=== PATIENT | male | born 1945 | race Caucasian/White ===

== ENCOUNTER → 2017-08-12 16:59 | Outpatient (CLI) | payer MEDICARE, SELFPAY ==
--- NOTE | 2017-08-12 17:07 | RAD_ITS ---
STUDY: X-RAY LEFT FOOT, FIFTH TOE REASON FOR EXAM: Male, 72 years old. 5 day history of pain. TECHNIQUE: 3 view(s) of the toe were obtained. COMPARISON: None. FINDINGS: Normal visualized metatarsus. Normal metatarsophalangeal (M.T.P) joint. Nondisplaced transverse fracture through the midportion of the proximal phalanx of the fifth toe. Normal phalanges and interphalangeal joints. Soft tissue swelling. RAD/Toe(s) Min 2 Views IMPRESSION: Nondisplaced transverse fracture through the midshaft of the proximal phalanx of the fifth toe with overlying soft tissue swelling. Electronically Signed: Angel Robins MD at 13:47 EST Tel [phone], Service support ,
== END ==
PROVIDERS: Family Provider Family Medicine; PCP Family Medicine; Visit Provider Family Medicine
DX: M79.676 Pain in unspecified toe(s) (principal)
CPT/HCPCS: 73660

== ENCOUNTER → 2017-11-19 12:11 | Outpatient (CLI) | payer MEDICARE, SELFPAY ==
[2017-11-19 12:56] LABS: Absolute Lymphocyte Count 1.99 X10^3/ul (0.83-4.51); Absolute Neutrophil Count 4.7 X10^3/uL (2.0-7.7); Basophil# 0.03 X10^3/uL; Basophil% 0.4 % (0-1); Eosinophil# 0.18 X10^3/uL; Eosinophils% 2.3 % (0-5); Hemoglobin 13.5 g/dl (13.0-16.5); Lymphocyte # 1.99 X10^3/ul (4.0); Mean Corp Hgb Conc 32.9 g/gl (32-36); Mean Corpuscular Hgb 28.7 pg (27.0-32.0); Mean Platelet Vol. 11.8 fl (6.2-12.0); Monocyte# 0.75 X10^3/uL; Monocyte% 9.8 % (0-10); Neutrophil % 61.4 % (47-70); Platelet Count 114 K/mm3 (150-450); RBC Distribution Width CV 13.2 % (11.6-14.6); RBC Distribution Width SD 42.3 fl (35.1-43.9); Red Blood Count 4.71 M/mm3 (4.6-6.2); White Blood Count 7.7 K/mm3 (4.4-11.0)
[2017-11-19 13:02] LABS: POSITIVE COUNT NO; POSITIVE DIFFERENTIAL NO; POSITIVE MORPHOLOGY NO
[2017-11-19 13:28] LABS: ALB/GLOB Ratio 0.8 RATIO (0.9-2.4); AST(SGOT) 25 U/L (15-37); Alanine Aminotransfer ALT/SGPT 43 U/L (16-61); Albumin, Serum 3.6 g/dL (3.2-5.0); Alkaline Phosphatase 76 U/L (45-117); Anion Gap 6 (5-15); BUN 14 mg/dL (7-18); BUN/Creat Ratio 12.1 RATIO (10-20); Calcium,Total 8.7 mg/dL (8.5-10.1); Chloride 105 mmol/L (98-107); Creatinine, Serum 1.16 mg/dL (0.70-1.30); EST Glomerular Filtration Rate 66 mL/min (>60); Est Glom Filt Rate - Afr Amer 80 mL/min (>60); Globulin 4.3 g/dL (2.2-4.2); Glucose 204 mg/dL (74-106); Potassium 4.7 mmol/L (3.5-5.1); Protein, Total 7.9 g/dL (6.4-8.2); Sodium Level 140 mmol/L (136-145); Thyroid Stim Hormone (TSH) 1.01 uIU/mL (0.358-3.74)
[2017-11-20 09:39] LABS: Vitamin B12 584 pg/mL (211-911)
[2017-11-21 03:07] LABS: Ceruloplasmin 24.1 mg/dL (16.0-31.0)
[2017-11-21 11:34] LABS: Copper, Serum or Plasma 119 ug/dL (72-166)
== END ==
PROVIDERS: Family Provider Family Medicine; PCP Family Medicine; Visit Provider Psychiatry & Neurology Neurology
DX: R25.1 Tremor, unspecified (principal)
CPT/HCPCS: 36415; 80053; 82390; 82525; 82607; 84443; 85025

== ENCOUNTER → 2018-01-07 16:03 | Outpatient (CLI) | payer MEDICARE, SELFPAY ==
--- NOTE | 2018-01-07 16:38 | MRI_ITS ---
STUDY: MRI BRAIN WITHOUT CONTRAST REASON FOR EXAM: Male, 72 years old. Worsening tremor TECHNIQUE: Standardized multiplanar fat and water weighted pulse sequences were obtained. COMPARISON: None. FINDINGS: Mild atrophy and periventricular white matter ischemic changes without mass effect or restricted diffusion.. Chronic ischemic changes within the justin. Normal bilateral basal ganglia. Normal thalami. There is no extra-axial fluid accumulation. Normal flow voids within the major intracranial circulation suggesting patency by spin echo criteria. Normal sella turcica, pituitary gland, infundibular stalk, optic chiasm and hypothalamus. Normal tectal plate and pineal gland. Normal midbrain, and medulla. Normal cerebellum. Normal basal cisterns. Normal bilateral temporal bones. Normal bilateral internal auditory canals. Postsurgical changes of the orbits. Mild mucosal thickening of the ethmoid sinuses.. Normal calvarium and skull base. Normal visualized soft tissue structures. Normal visualized upper cervical spine. MRI/Brain without Contrast IMPRESSION: Mild periventricular white matter ischemic changes without evidence for acute infarct and chronic ischemic changes within the justin.. Electronically Signed: Cam Granados MD at 18:23 EDT , Service support ,
== END ==
PROVIDERS: Family Provider Family Medicine; PCP Family Medicine; Visit Provider Psychiatry & Neurology Neurology
DX: R25.1 Tremor, unspecified (principal); R26.9 Unspecified abnormalities of gait and mobility
CPT/HCPCS: 70551

== ENCOUNTER → 2018-05-28 13:29 | Outpatient (CLI) | payer MEDICARE, SELFPAY ==
--- NOTE | 2018-05-28 12:25 | RAD_ITS ---
STUDY: X-RAY CHEST REASON FOR EXAM: Male, 73 years old. Shortness of breath TECHNIQUE: Frontal and lateral views of the chest were obtained. COMPARISON: August 17, 2016 FINDINGS: The lungs are hyperinflated. There are mild coarse opacities in the lung bases. There are no focal airspace opacities. There is no demonstrated pleural abnormality. The cardiac silhouette is normal in size. The mediastinum and hilar regions are unremarkable. Normal visualized pulmonary arteries. Normal visualized aortic arch and descending thoracic aorta. There are diffuse degenerative changes of the visualized spine. The visualized ribs, clavicles, and shoulders are unremarkable. There is no demonstrated abnormality of the visualized upper abdomen. RAD/Chest PA and Lateral IMPRESSION: No acute cardiopulmonary abnormalities. There are findings of COPD with mild chronic changes in the lung bases. Electronically Signed: Evita Suárez MD at 21:45 EST Tel Direct: [phone], Service support ,
[2018-05-28 13:56] LABS: Anion Gap 6 (5-15); BUN 14 mg/dL (7-18); BUN/Creat Ratio 11.3 RATIO (10-20); Calcium,Total 8.2 mg/dL (8.5-10.1); Chloride 104 mmol/L (98-107); Cholesterol 109 mg/dL (200); Creatinine, Serum 1.24 mg/dL (0.70-1.30); EST Glomerular Filtration Rate 61 mL/min (>60); Est Glom Filt Rate - Afr Amer 74 mL/min (>60); Glucose 360 mg/dL (74-106); High Density Lipoprotein 29 mg/dL; PSA,Total - Annual Screen 2.28 ng/mL (0.00-4.00); Potassium 5.2 mmol/L (3.5-5.1); Sodium Level 137 mmol/L (136-145); Triglycerides 67 mg/dL; Very Low Density Lipoprotein 13 mg/dL (5-40)
[2018-05-28 14:04] LABS: Absolute Lymphocyte Count 1.23 X10^3/ul (0.83-4.51); Absolute Neutrophil Count 5.9 X10^3/uL (2.0-7.7); Basophil# 0.03 X10^3/uL; Basophil% 0.4 % (0-1); Eosinophil# 0.32 X10^3/uL; Eosinophils% 3.9 % (0-5); Hematocrit 37.5 % (40-54); Hemoglobin 11.7 g/dl (13.0-16.5); Lymphocyte # 1.23 X10^3/ul (4.0); Lymphocyte % 14.9 % (19-41); Mean Corp Hgb Conc 31.2 g/gl (32-36); Mean Corpuscular Hgb 28.7 pg (27.0-32.0); Mean Corpuscular Volume 91.9 fL (80-94); Mean Platelet Vol. 12.8 fl (6.2-12.0); Monocyte# 0.74 X10^3/uL; Neutrophil % 71.4 % (47-70); Platelet Count 268 K/mm3 (150-450); RBC Distribution Width CV 13.5 % (11.6-14.6); RBC Distribution Width SD 44.7 fl (35.1-43.9); Red Blood Count 4.08 M/mm3 (4.6-6.2); White Blood Count 8.3 K/mm3 (4.4-11.0)
[2018-05-28 14:05] LABS: POSITIVE COUNT NO; POSITIVE DIFFERENTIAL NO; POSITIVE MORPHOLOGY NO
[2018-05-28 14:06] LABS: Vitamin D,25 Hydroxy 21.6 ng/mL (29.95-100.01)
[2018-05-28 14:19] LABS: Hemoglobin A1c 11.2 % (4.2-6.3)
[2018-05-28 14:31] LABS: BNP,B-Type NATRIURETIC PEPTIDE 794.7 pg/mL (0-100)
== END ==
PROVIDERS: Family Provider Family Medicine; PCP Family Medicine; Referring Provider Family Medicine; Visit Provider Family Medicine
DX: Z00.00 Encounter for general adult medical examination without abnormal findings (principal); E55.9 Vitamin D deficiency, unspecified; E11.8 Type 2 diabetes mellitus with unspecified complications; E11.65 Type 2 diabetes mellitus with hyperglycemia; R06.02 Shortness of breath; Z12.5 Encounter for screening for malignant neoplasm of prostate
CPT/HCPCS: 36415; 71046; 80048; 80061; 82306; 83036; 83880; 84153; 85025; G0103

== ENCOUNTER → 2018-06-02 08:59 | Outpatient (CLI) | payer MEDICARE, OTHER, SELFPAY ==
[2018-06-02 10:41] LABS: AST(SGOT) 27 U/L (15-37); Alanine Aminotransfer ALT/SGPT 25 U/L (16-61); Albumin, Serum 3.4 g/dL (3.2-5.0); Alkaline Phosphatase 85 U/L (45-117); Anion Gap 8 (5-15); BUN 35 mg/dL (7-18); BUN/Creat Ratio 22.7 RATIO (10-20); Bilirubin, Direct 0.13 mg/dL (0.00-0.30); Chloride 101 mmol/L (98-107); Cholesterol 121 mg/dL (200); Creatinine, Serum 1.54 mg/dL (0.70-1.30); EST Glomerular Filtration Rate 47 mL/min (>60); Est Glom Filt Rate - Afr Amer 57 mL/min (>60); Globulin 5.3 g/dL (2.2-4.2); Glucose 140 mg/dL (74-106); High Density Lipoprotein 35 mg/dL; Potassium 4.6 mmol/L (3.5-5.1); Protein, Total 8.7 g/dL (6.4-8.2); Sodium Level 137 mmol/L (136-145); Triglycerides 98 mg/dL; Very Low Density Lipoprotein 20 mg/dL (5-40)
[2018-06-02 11:20] LABS: Hemoglobin A1c 10.4 % (4.2-6.3)
[2018-06-02 15:04] LABS: Microalbumin,Random Urine 9.1 mg/L (NO RANGE EST.); Microalbumin:Creatinine Ratio 7.4 mg/g CRE (<30 mg/g CRE)
== END ==
PROVIDERS: Family Provider Family Medicine; PCP Family Medicine; Visit Provider Family Medicine
DX: E11.9 Type 2 diabetes mellitus without complications (principal)
CPT/HCPCS: 36415; 80048; 80061; 80076; 82043; 82570; 83036

== ENCOUNTER → 2018-10-29 | Outpatient (CLI) | payer MEDICARE, OTHER, SELFPAY ==
[2018-10-29 10:02] LABS: Absolute Lymphocyte Count 1.83 X10^3/ul (0.83-4.51); Absolute Neutrophil Count 5.9 X10^3/uL (2.0-7.7); Basophil# 0.05 X10^3/uL; Basophil% 0.5 % (0-1); Eosinophil# 0.49 X10^3/uL; Eosinophils% 5.3 % (0-5); Hematocrit 41.1 % (40-54); Hemoglobin 13.5 g/dl (13.0-16.5); Lymphocyte # 1.83 X10^3/ul (4.0); Lymphocyte % 19.9 % (19-41); Mean Corp Hgb Conc 32.8 g/gl (32-36); Mean Corpuscular Hgb 28.7 pg (27.0-32.0); Mean Corpuscular Volume 87.4 fL (80-94); Mean Platelet Vol. 11.9 fl (6.2-12.0); Monocyte% 9.8 % (0-10); Neutrophil # 5.89 X10^3/uL (2.7-7.7); Neutrophil % 64.2 % (47-70); Platelet Count 120 K/mm3 (150-450); RBC Distribution Width CV 13.5 % (11.6-14.6); RBC Distribution Width SD 43.3 fl (35.1-43.9); White Blood Count 9.2 K/mm3 (4.4-11.0)
[2018-10-29 10:03] LABS: POSITIVE COUNT NO; POSITIVE DIFFERENTIAL NO; POSITIVE MORPHOLOGY NO
[2018-10-29 10:22] LABS: Hemoglobin A1c 9.4 % (4.2-6.3)
[2018-10-29 10:27] LABS: Microalbumin,Random Urine 16.9 mg/L (NO RANGE EST.); Microalbumin:Creatinine Ratio 18.6 mg/g CRE (<30 mg/g CRE)
[2018-10-29 10:38] LABS: AST(SGOT) 26 U/L (15-37); Alanine Aminotransfer ALT/SGPT 27 U/L (16-61); Albumin, Serum 3.5 g/dL (3.2-5.0); Alkaline Phosphatase 85 U/L (45-117); Anion Gap 9 (5-15); BUN 14 mg/dL (7-18); BUN/Creat Ratio 12.2 RATIO (10-20); Bilirubin, Direct 0.16 mg/dL (0.00-0.30); Calcium,Total 8.8 mg/dL (8.5-10.1); Chloride 101 mmol/L (98-107); Cholesterol 155 mg/dL (200); Creatinine, Serum 1.15 mg/dL (0.70-1.30); EST Glomerular Filtration Rate 66 mL/min (>60); Est Glom Filt Rate - Afr Amer 80 mL/min (>60); Globulin 4.1 g/dL (2.2-4.2); Glucose 223 mg/dL (74-106); High Density Lipoprotein 50 mg/dL; Potassium 4.3 mmol/L (3.5-5.1); Protein, Total 7.6 g/dL (6.4-8.2); Sodium Level 138 mmol/L (136-145); Triglycerides 80 mg/dL; Very Low Density Lipoprotein 16 mg/dL (5-40)
== END | disposition home or self-care (01) ==
LOC: MFPLAB 08:30
PROVIDERS: Family Provider Family Medicine; PCP Family Medicine; Referring Provider Family Medicine; Visit Provider Family Medicine
DX: E11.8 Type 2 diabetes mellitus with unspecified complications (principal); R11.0 Nausea
CPT/HCPCS: 36415; 80048; 80061; 80076; 82043; 82570; 83036; 85025

== ENCOUNTER 2020-11-30 17:16 | Emergency (ER) | payer MEDICARE, MEDICAID, SELFPAY ==
[2020-11-29 09:58] VITALS: BMI 24.9
[2020-11-30 17:17] VITALS: BP 160/121; PULSE 70; RESP 20; TEMP 36.6; O2SAT 100; BMI 26.2
[2020-11-30 17:39] VITALS: O2SAT 100
--- NOTE | 2020-11-30 17:39 | EKG12_ITS ---
Test Reason : CP Blood Pressure : / mmHG Vent. Rate : 067 BPM Atrial Rate : 067 BPM P-R Int : 202 ms QRS Dur : 096 ms QT Int : 410 ms P-R-T Axes : 066 011 -08 degrees QTc Int : 433 ms Normal sinus rhythm Incomplete right bundle branch block Possible Inferior infarct , age undetermined Abnormal ECG Confirmed by SUZIE SALAS, ELVIS ([id number]), newspaper copy editor GINNY COMER ([id number]) on 12/04/2020 10:14:29 A M Referred By: DINORA Confirmed By:MADISON LARSEN MD
--- NOTE | 2020-11-30 17:39 | EDS_ITS ---
HPI History of Present Illness Chief Complaint: Chest Pain Informant: patient Onset/Context/Timing Onset: Today Activity at onset: sudden (Was sitting in recliner during the episodes that occurred hours apart) Timing: Intermittent (3 or 4 episodes today, initial one was about 8 hrs prior to eval) and Lasts (couple minutes each time) Quality: Positive for Indigestion Location: Substernal (Mild in chest, worse in mid upper back and into the neck) Current Severity: Gone Maximum Severity: Mild Worsened By: Nothing; Not Worsened By Breathing Relieved By: Nothing Associated Symptoms: Positive for - (No associated symptoms) Narrative Narrative: Episodic chest discomfort today, he states the discomfort was more in his back and his neck than his chest but it was there 2. No associated dyspnea although he states he is dyspneic all the time because of his emphysema which he thinks is stable right now. He denies any recent illness or injury. He denies any associated palpitations, lightheadedness or near syncope, nausea, sweating, or worsening dyspnea. He has a history of an [place] for 5 years ago, he was sent to [place] but they did not PCI him or perform any surgery, just medication adjustments. He took his aspirin this morning. [facility] Medical History Anxiety disorder, unspecified Ataxic gait Atherosclerosis of coronary artery of [place] heart without angina pectoris Chronic systolic (congestive) heart failure COPD (chronic obstructive pulmonary disease) Diabetes mellitus due to underlying condition with diabetic neuropathy, unspecified Essential tremor Hearing loss Ischemic cardiomyopathy Major depressive disorder, single episode, unspecified Non-rheumatic mitral regurgitation Non-rheumatic mitral valve stenosis Non-STEMI (non-ST elevated myocardial infarction) Old myocardial infarction Other malaise Secondary pulmonary arterial hypertension Tremor, unspecified Type 2 diabetes mellitus with mild nonproliferative diabetic retinopathy with macular edema, bilateral Type 2 diabetes mellitus without complications Home Medications aspirin 81 mg tablet,delayed release 81 mg PO QDAY 08/19/17 [History Last Taken Unknown] atorvastatin 40 mg tablet 40 mg PO QHS tab 08/19/17 [History Last Taken Unknown] lisinopril 5 mg tablet 5 mg PO QDAY 30 Days #30 tab 08/19/17 [History Last Taken Unknown] nitroglycerin 0.4 mg sublingual tablet 0.4 mg SUBLINGUAL Q5-15M PRN 08/19/17 [History Last Taken Unknown] acetaminophen 325 mg capsule 650 mg PO Q8H PRN cap 11/29/20 [History Last Taken Unknown] acetaminophen 500 mg tablet 1,000 mg PO QHS tab 11/29/20 [History Last Taken Unknown] albuterol sulfate 90 mcg/actuation aerosol inhaler 2 puff INHALATION Q4H PRN g 11/29/20 [History Last Taken Unknown] calcium carbonate 400 mg calcium (1,000 mg) chewable tablet 800 mg PO TID PRN tab 11/29/20 [History Last Taken Unknown] cholecalciferol (vitamin D3) 125 mcg (5,000 unit) capsule 125 mcg PO DAILY 11/29/20 [History Last Taken Unknown] famotidine 20 mg tablet 20 mg PO BID tab 11/29/20 [History Last Taken Unknown] furosemide 40 mg tablet 40 mg PO BID tab 11/29/20 [History Last Taken Unknown] gabapentin 400 mg capsule 400 mg PO BID cap 11/29/20 [History Last Taken Unknown] insulin detemir U-100 100 unit/mL (3 mL) subcutaneous pen 25 unit SC DAILY ml 11/29/20 [History Last Taken Unknown] insulin lispro 100 unit/mL subcutaneous solution See Rx Instructions SC .COMPLEX 11/29/20 [History Last Taken Unknown] loperamide 2 mg capsule 2 mg PO Q12H PRN cap 11/29/20 [History Last Taken Unknown] loratadine 10 mg capsule 10 mg PO DAILY 11/29/20 [History Last Taken Unknown] lorazepam 0.5 mg tablet 0.5 mg PO QHS 11/29/20 [History Last Taken Unknown] multivitamin 1 tab PO DAILY 11/29/20 [History Last Taken Unknown] ondansetron HCl 4 mg tablet 4 mg PO Q6H tab 11/29/20 [History Last Taken Unknown] propranolol 60 mg capsule,24 hr,extended release 60 mg PO BID cap 11/29/20 [History Last Taken Unknown] psyllium husk 0.4 gram capsule 0.4 g PO DAILY 11/29/20 [History Last Taken Unknown] vitamin B complex-folic acid 0.4 mg tablet 1 tab PO DAILY 11/29/20 [History Last Taken Unknown] insulin glargine [Lantus Solostar U-100 Insulin] 25 unit SUBCUT LUNCH 11/30/20 [History Last Taken Unknown] primidone 50 mg PO QHS 11/30/20 [History Last Taken Unknown] Allergy/AdvReac Type Severity Reaction Status Date / Time Penicillins Allergy Unknown Unknown Verified 11/30/20 17:28 metoprolol AdvReac Mild Nausea Verified 11/30/20 17:28 Family History (Updated 11/29/20 @ 10:03 by Esther Felix) Grandfather CVA (cerebral vascular accident) Surgical History History of cataract surgery History of left heart catheterization (~08/18/16) History of thoracentesis (~08/2016) Social History Smoking Status: Former smoker Tobacco: How many years used: 40 how long ago did patient quit smoking: about 25 years ago Smoked about 2-3 paks a day alcohol intake: current alcohol intake frequency: holidays/special occasions only substance use type: does not use ROS ROS ED Constitutional Constitutional ED: Denies chills or fever(s) Eyes Eyes: Denies change in vision or diplopia ENT ENT ED: Denies rhinorrhea or sore throat Cardiovascular Cardiovascular: Reports as per HPI and chest pain; Denies palpitations Respiratory/Chest Respiratory/Chest: Reports as per HPI and dyspnea on exertion; Denies cough Gastrointestinal Gastrointestinal: Denies abdominal pain, diarrhea, nausea or vomiting Genitourinary Genitourinary ED: Denies dysuria or hematuria Musculoskeletal Musculoskeletal: Reports as per HPI, back pain and neck pain Integumentary Denies abscess or rash Neurologic Neurologic: Denies headache(s), paresthesias or weakness Psychiatric Psychiatric: Denies anxiety or suicidal thoughts EXAM Physical Exam Const Vital Signs: 11/30/20 17:17 11/30/20 17:39 11/30/20 19:25 Temperature 97.9 F Temperature Source Oral Pulse Rate 70 67 Respiratory Rate 20 H 19 H Respiratory Effort Normal Non-Labored Respiratory Pattern Normal Blood Pressure 160/121 H 157/78 H Blood Pressure Mean 134 104 Pulse Ox 100 100 100 Oxygen Delivery Method Room Air Room Air Room Air 11/30/20 19:48 11/30/20 21:04 11/30/20 21:43 Temperature 98.0 F Temperature Source Oral Pulse Rate 63 68 76 Respiratory Rate 16 17 16 Respiratory Effort Respiratory Pattern Blood Pressure 153/53 H 158/58 H 140/91 H Blood Pressure Mean 86 91 107 Pulse Ox 98 98 98 Oxygen Delivery Method Room Air Room Air Room Air Positive well nourished and well developed General Appearance ED: well developed and NAD HEENT Reports moist mucous membranes normocephalic and atraumatic Eyes PERRL and EOMs intact bilaterally Neck full ROM, supple and no JVD Chest Wall inspection of chest normal and palpation of chest normal Resp normal respiratory effort and clear to auscultation bilaterally Cardio regular rate, regular rhythm and no murmurs Rate: Negative for tachycardic GI non-tender and non-distended Auscultation: normoactive bowel sounds Palpation: soft Back/Spine no CVA tenderness General Back: other FROM Extremity normal to inspection General Extremety ED: Negative for edema, pulses abnormal or tenderness General Extremity: Negative for edema or pulses abnormal Neuro oriented x3, CN's II-XII intact bilaterally and no sensory deficits noted Neuro Narrative: Mildly tremulous, especially with speech Sensorium / Orientation: awake and alert Motor Exam: strength 5/5 throughout Skin no rashes or lesions noted and no wounds Heart Score History: Slightly/Non-Suspicious ECG: Normal Age: >/= 65 years Risk Factors: >/= 3 Risk Factors or History of CAD Troponin: </= Normal Limit Score: 4 MDM MDM MDM Narrative Medical decision making narrative: Patient was observed in the ED. His heart score is 4, basically because of his history and his age. His initial troponin is negative. I offered admission but he does not want to stay and would prefer to go home and is amenable to a 3-hour delta troponin which was obtained. His initial 1 was less than 0.015, but a second 1 came back at 0.018 which is still within normal limits but technically higher. The patient had no further episodes of chest discomfort while in the emergency department or telemetry events. I discussed with cardiology Dr. Mack, who recommends admitting the patient, but in discussion with the patient, he states he does not care what the journalist recommends, he is going home to the [place] [facility] to be with his , even if it is AGAINST MEDICAL ADVICE. He understands that he could have had episodes of unstable angina today that could result in a heart attack and , but he still wants to leave because his is waiting for him and may need his help. Lab Data Attestation: I reviewed the patient's lab results. Labs: Laboratory Results - last 24 hr 11/30/20 11/30/20 11/30/20 17:20 17:20 18:03 WBC 6.7 RBC 4.91 Hgb 13.5 Hct 41.5 MCV 84.5 MCH 27.5 MCHC 32.5 RDW Std Deviation 43.0 RDW Coeff of [place]eb[place] 14.0 Plt Count 159 MPV 12.1 H Immature Gran % (Auto) 0.200 Neut % (Auto) 48.0 Lymph % (Auto) 34.5 [place] % (Auto) 12.8 H Eos % (Auto) 3.9 Baso % (Auto) 0.6 Absolute Neuts (auto) 3.2 Absolute Lymphs (auto) 2.30 Nucleated RBC % 0 Sodium 138 Potassium 4.3 Chloride 102 Carbon Dioxide 34.0 H Anion Gap 2 L BUN 22 H Creatinine 1.33 H Estim Creat Clear Calc 43.31 Est GFR (MDRD) Af Amer 67 Est GFR (MDRD) Non-Af 56 L BUN/Creatinine Ratio 16.5 Glucose 348 H Calcium 9.7 Troponin I < 0.015 POC Glucose 306 H 11/30/20 20:20 WBC RBC Hgb Hct MCV MCH MCHC RDW Std Deviation RDW Coeff of [place] Plt Count MPV Immature Gran % (Auto) Neut % (Auto) Lymph % (Auto) [place] % (Auto) Eos % (Auto) Baso % (Auto) Absolute Neuts (auto) Absolute Lymphs (auto) Nucleated RBC % Sodium Potassium Chloride Carbon Dioxide Anion Gap BUN Creatinine Estim Creat Clear Calc Est GFR (MDRD) Af Amer Est GFR (MDRD) Non-Af BUN/Creatinine Ratio Glucose Calcium Troponin I 0.018 POC Glucose Radiography Chest X-Ray - ED: 1 View, Read by ED Physician, No Acute Disease and Chronic Changes Diagnostic Testing: Radiology Impression Chest X-Ray 11/30/20 18:19 IMPRESSION: Normal x-ray examination of the chest. Electronically Signed: Barbie Rubio MD at 18:34 EDT Tel , Service support , EKG Initial EKG: Attestation: I personally reviewed and interpreted this EKG as follows: Interpretation: Sinus Rhythm, No Acute Injury Pattern and Non-Specific ST Changes Prior EKG tracings: available for review Prior: Unchanged Discharge Plan Triage Chief Complaint: Chest Pain ED Provider: Sang Torres Dx/Rx/DC Orders Clinical Impression: Intermittent chest pain Instructions: ED Chest Pain, Uncertain Cause, AMA Prescriptions: No Action nitroglycerin 0.4 mg tablet, sublingual 0.4 mg SUBLINGUAL Q5-15M PRN (Reason: Pain) RF: 0 lisinopril 5 mg tablet 5 mg PO QDAY 30 Days Qty: 30 RF: 0 atorvastatin 40 mg tablet 40 mg PO QHS RF: 0 aspirin [Adult Low Dose Aspirin] 81 mg tablet,delayed release (DR/EC) 81 mg PO QDAY RF: 0 insulin lispro [Humalog U-100 Insulin] 100 unit/mL solution See Rx Instructions SC .COMPLEX RF: 0 Levemir FlexTouch U-100 Insuln 100 unit/mL (3 mL) insulin pen 25 unit SC DAILY RF: 0 acetaminophen 325 mg capsule 650 mg PO Q8H PRN (Reason: Pain) RF: 0 famotidine 20 mg tablet 20 mg PO BID RF: 0 gabapentin 400 mg capsule 400 mg PO BID RF: 0 loperamide 2 mg capsule 2 mg PO Q12H PRN (Reason: Diarrhea) RF: 0 loratadine 10 mg capsule 10 mg PO DAILY RF: 0 lorazepam 0.5 mg tablet 0.5 mg PO QHS RF: 0 psyllium husk [Metamucil] 0.4 gram capsule 0.4 g PO DAILY RF: 0 multivitamin Tablet 1 tab PO DAILY RF: 0 albuterol sulfate [ProAir HFA] 90 mcg/actuation HFA aerosol inhaler 2 puff inhalation Q4H PRN (Reason: shortness of breath or wheezing) RF: 0 propranolol 60 mg capsule,extended release 24 hr 60 mg PO BID RF: 0 vitamin B complex-folic acid [Super B Maxi Complex] 0.4 mg tablet 1 tab PO DAILY RF: 0 ondansetron HCl 4 mg tablet 4 mg PO Q6H RF: 0 cholecalciferol (vitamin D3) 125 mcg (5,000 unit) capsule 125 mcg PO DAILY RF: 0 acetaminophen [Tylenol Extra Strength] 500 mg tablet 1,000 mg PO QHS RF: 0 calcium carbonate [Tums Ultra] 400 mg calcium (1,000 mg) tablet,chewable 800 mg PO TID PRN (Reason: Acid Reflux) RF: 0 furosemide 40 mg tablet 40 mg PO BID RF: 0 primidone 50 mg Tablet 50 mg PO QHS RF: 0 Lantus Solostar U-100 Insulin 100 unit/mL (3 mL) insulin pen 25 unit SUBCUT LUNCH RF: 0 Primary Care Provider: Kyle Aguila Referrals: Kyle Aguila MD [Primary Care Provider] - As soon as possible (And/or your journalist; if you change your mind about being admitted to the hospital return as soon as you can.) Disposition Disposition: Against Medical Advice Discharge Date/Time: 11/30/20 22:55 Capacity Capacity Assessment Tool Can the patient make a choice & communicate that choice?: Yes Can the patient understand benefits, risks and alternatives?: Yes Can the patient make a logical, rational choice?: Yes Is the choice the patient makes consistent w/ their values?: Yes Is there an impending, emergent risk to the patient?: Unable to Determine Is there a Surrogate Available?: No
[2020-11-30 18:00] LABS: Absolute Neutrophil Count 3.2 X10^3/uL (2.0-7.7); Basophil# 0.04 X10^3/uL; Basophil% 0.6 % (0-1); Eosinophil# 0.26 X10^3/uL; Eosinophils% 3.9 % (0-5); Hematocrit 41.5 % (40-54); Hemoglobin 13.5 g/dL (13.0-16.5); Lymphocyte % 34.5 % (19-41); Mean Corp Hgb Conc 32.5 g/dL (32-36); Mean Corpuscular Hgb 27.5 pg (27.0-32.0); Mean Corpuscular Volume 84.5 fL (80-94); Mean Platelet Vol. 12.1 fl (6.2-12.0); Monocyte# 0.85 X10^3/uL; Monocyte% 12.8 % (0-10); NRBC Flagged by Analyzer 0 % (0-5); Platelet Count 159 K/mm3 (150-450); Red Blood Count 4.91 M/mm3 (4.6-6.2); White Blood Count 6.7 K/mm3 (4.4-11.0)
[2020-11-30 18:10] LABS: Bedside Glucose 306 mg/dL (70-110)
[2020-11-30 18:18] LABS: Anion Gap 2 (5-15); BUN 22 mg/dL (7-18); BUN/Creat Ratio 16.5 RATIO (10-20); Calcium,Total 9.7 mg/dL (8.5-10.1); Chloride 102 mmol/L (98-107); Creatinine, Serum 1.33 mg/dL (0.70-1.30); EST Glomerular Filtration Rate 56 mL/min (>60); Est Glom Filt Rate - Afr Amer 67 mL/min (>60); Estimated Creatinine Clearance 43.31 ml/min; Glucose 348 mg/dL (74-106); Potassium 4.3 mmol/L (3.5-5.1); Sodium Level 138 mmol/L (136-145)
--- NOTE | 2020-11-30 18:19 | RAD_ITS ---
STUDY: X-RAY CHEST REASON FOR EXAM: Male, 75 years old. chest pain TECHNIQUE: Single AP portable view of the chest. COMPARISON: 05/28/2018. FINDINGS: The lungs are clear and expanded. There is no demonstrated pleural abnormality. Normal size heart. Normal mediastinum and lobito. Normal visualized pulmonary arteries. Normal visualized aortic arch and descending thoracic aorta. Normal visualized thoracic spine. Normal visualized ribs, clavicles, and shoulders. There is no demonstrated abnormality of the visualized soft tissue structures of the upper abdomen. RAD/Chest 1 View (Portable) IMPRESSION: Normal x-ray examination of the chest. Electronically Signed: Barbie Rubio MD at 18:34 EDT Tel , Service support ,
[2020-11-30 19:25] VITALS: BP 157/78; PULSE 67; RESP 19; O2SAT 100
[2020-11-30 19:48] VITALS: BP 153/53; PULSE 63; RESP 16; O2SAT 98
[2020-11-30 21:04] VITALS: BP 158/58; PULSE 68; RESP 17; O2SAT 98
--- NOTE | 2020-11-30 21:05 | ED.RN ---
Daughter, Risa [phone], aware of update and pending troponin and is aware if all okay, he will go back to SNF and we will call her if we decide to keep him/things change. She is agreeable to plan.
[2020-11-30 21:43] VITALS: BP 140/91; PULSE 76; RESP 16; TEMP 36.7; O2SAT 98
== END 2020-11-30 22:55 | disposition left against medical advice (07) ==
PROVIDERS: Emergency Provider Emergency Medicine; PCP Family Medicine
DX: R07.9 Chest pain, unspecified (principal); F41.9 Anxiety disorder, unspecified; I25.10 Atherosclerotic heart disease of native coronary artery without angina pectoris; J44.9 Chronic obstructive pulmonary disease, unspecified; F32.9 Major depressive disorder, single episode, unspecified; E11.3219 Type 2 diabetes mellitus with mild nonproliferative diabetic retinopathy with macular edema, unspecified eye; Z79.4 Long term (current) use of insulin; Z79.51 Long term (current) use of inhaled steroids; Z79.899 Other long term (current) drug therapy; Z87.891 Personal history of nicotine dependence
CPT/HCPCS: 71045; 80048; 82962; 84484; 85025; 93005; 99285; A4216

== ENCOUNTER → 2021-03-05 16:24 | Outpatient (CLI) | payer MEDICAID, SELFPAY ==
--- NOTE | 2021-03-05 17:30 | MRI_ITS ---
STUDY: MRI BRAIN WITH AND WITHOUT CONTRAST REASON FOR EXAM: Male, 75 years old. ASYMMETRIC HEARING LOSS, left TINNITUS TECHNIQUE: Standardized multiplanar fat and water weighted pulse sequences were obtained. IV Yes YES was administered for the contrast portion of the examination. COMPARISON: 01/07/2018 FINDINGS: Mild atrophy and periventricular white matter ischemic change without mass effect or restricted diffusion.. Chronic pontine ischemic changes. Normal bilateral basal ganglia. Normal thalami. There is no extra-axial fluid accumulation. Normal flow voids within the major intracranial circulation suggesting patency by spin echo criteria. Normal venous enhancement. There is no enhancing intra-axial or extra-axial abnormality. Normal sella turcica, pituitary gland, infundibular stalk, optic chiasm and hypothalamus. Normal tectal plate and pineal gland. Normal midbrain, justin and medulla. Normal cerebellum. Normal basal cisterns. Normal bilateral temporal bones. Normal bilateral internal auditory canals. Postsurgical changes of the orbits.. Normal visualized paranasal sinuses. Normal calvarium and skull base. Normal visualized soft tissue structures. Normal visualized upper cervical spine. No significant change since prior exam MRI/Brain W/WO Contrast IMPRESSION: Mild periventricular white matter ischemic changes without evidence for acute infarct. Chronic pontine ischemic changes.. No enhancing lesions. Specifically no evidence for acoustic or vestibular schwannoma Electronically Signed: Cam Granados MD at 22:22 EDT , Service support ,
== END ==
PROVIDERS: PCP Family Medicine; Referring Provider Otolaryngology; Visit Provider Otolaryngology
DX: H93.12 Tinnitus, left ear (principal); H90.3 Sensorineural hearing loss, bilateral
CPT/HCPCS: 70553; A9575

== ENCOUNTER 2022-04-02 11:56 | Outpatient (CLI) | payer MEDICAID, SELFPAY ==
[2022-04-02 15:20] LABS: Hemoglobin A1c 9.6 % (3.8-5.6)
[2022-04-02 15:25] LABS: Anion Gap 7 (5-15); BUN 17 mg/dL (7-18); BUN/Creat Ratio 10.4 RATIO (10-20); Calcium,Total 9.6 mg/dL (8.5-10.1); Chloride 106 mmol/L (98-107); Cholesterol 98 mg/dL (200); Creatinine, Serum 1.63 mg/dL (0.70-1.30); EST Glomerular Filtration Rate 44 mL/min (>60); Est Glom Filt Rate - Afr Amer 53 mL/min (>60); Glucose 105 mg/dL (74-106); High Density Lipoprotein 46 mg/dL; Potassium 4.6 mmol/L (3.5-5.1); Sodium Level 140 mmol/L (136-145); Triglycerides 70 mg/dL; Very Low Density Lipoprotein 14 mg/dL (5-40)
== END 2022-04-02 23:59 | disposition home or self-care (01) ==
LOC: MFPLAB 12:00
PROVIDERS: PCP Family Medicine; Referring Provider Family Medicine; Visit Provider Family Medicine
DX: E11.8 Type 2 diabetes mellitus with unspecified complications (principal)
CPT/HCPCS: 36415; 80048; 80061; 83036

== ENCOUNTER 2022-07-02 11:27 | Outpatient (CLI) | payer MEDICAID, SELFPAY ==
[2022-07-02 13:09] LABS: Anion Gap 3 (5-15); BUN 10 mg/dL (7-18); BUN/Creat Ratio 8.5 RATIO (10-20); Calcium,Total 9.1 mg/dL (8.5-10.1); Chloride 107 mmol/L (98-107); Cholesterol 115 mg/dL (200); Creatinine, Serum 1.17 mg/dL (0.70-1.30); EST Glomerular Filtration Rate 64 mL/min (>60); Est Glom Filt Rate - Afr Amer 78 mL/min (>60); Glucose 103 mg/dL (74-106); High Density Lipoprotein 38 mg/dL; Potassium 4.6 mmol/L (3.5-5.1); Sodium Level 141 mmol/L (136-145); Triglycerides 85 mg/dL; Very Low Density Lipoprotein 17 mg/dL (5-40)
== END 2022-07-02 23:59 | disposition home or self-care (01) ==
LOC: MFPLAB 11:28
PROVIDERS: PCP Family Medicine; Referring Provider Family Medicine; Visit Provider Family Medicine
DX: I10 Essential (primary) hypertension (principal)
CPT/HCPCS: 36415; 80048; 80061

== ENCOUNTER 2022-07-31 20:27 | Emergency (ER) | payer MEDICARE, MEDICAID, SELFPAY ==
[2022-07-31 20:28] VITALS: BP 129/82; PULSE 71; RESP 16; TEMP 36.1; O2SAT 98; BMI 2680.5
--- NOTE | 2022-07-31 21:33 | CT_ITS ---
INDICATION: head injury EXAMINATION: CT BRAIN - CT Head or Brain W/O Contrast Injection TECHNIQUE: Multiple axial images were obtained of the head without intravenous contrast. A radiation dose optimization technique was used for this scan. IV Contrast dosage and agent: None. COMPARISON: MRI brain March 05, 2021 FINDINGS: BRAIN PARENCHYMA: No intra- or extra-axial hemorrhage. No evidence of acute infarct. No intracranial mass or mass effect. Mild periventricular and subcortical white matter hypodense chronic small vessel white matter ischemic change. There is preservation of the hager/white matter interface. Posterior fossa structures are unremarkable. Bilateral Carotid atherosclerosis. CSF SPACES: Mild global cerebral volume loss. No hydrocephalus. Basal cisterns are patent. CALVARIUM, SKULL BASE, PARANASAL SINUSES AND MASTOID AIR CELLS: No acute osseous finding. Mild scattered paransal sinus mucoperisteal thickening. Mastoid air cells are clear. ORBITS: Both globes, extraocular muscles, optic nerves and retrobulbar fat appear unremarkable. ASPECTS Score for Acute Strokes: 10 CT/Brain/Head without Contrast IMPRESSION: No CT evidence of acute intracranial hemorrhage or injury. Senescent changes and atherosclerosis Electronically Signed: Curt Bragg MD at 22:15 EST Reading Location ID and State: [facility] / [place] Tel , Service support ,
[2022-07-31 22:09] VITALS: BMI 26.8
--- NOTE | 2022-07-31 22:31 | EDS_ITS ---
HPI History of Present Illness Chief Complaint: Head Injury Narrative Narrative: 77-year-old male past medical history of essential tremor, diabetes, states he uses a wheelchair that he controls with his foot. He lost control of it, and he states that he was thrown from his wheelchair. He hit the back of his head but denies loss of consciousness. No neck pain. No injury. He states that he lives in assisted living at [facility], and was told that he will be able to go to sleep unless he comes to the emergency department for evaluation. He does not take blood thinners. [facility] Medical History Anxiety disorder, unspecified Ataxic gait Atherosclerosis of coronary artery of teller heart without angina pectoris Chronic systolic (congestive) heart failure COPD (chronic obstructive pulmonary disease) Diabetes mellitus due to underlying condition with diabetic neuropathy, unspecified Essential tremor Hearing loss Ischemic cardiomyopathy Major depressive disorder, single episode, unspecified Non-rheumatic mitral regurgitation Non-rheumatic mitral valve stenosis Non-STEMI (non-ST elevated myocardial infarction) Old myocardial infarction Other malaise Secondary pulmonary arterial hypertension Tremor, unspecified Type 2 diabetes mellitus with mild nonproliferative diabetic retinopathy with macular edema, bilateral Type 2 diabetes mellitus without complications Home Medications aspirin 81 mg tablet,delayed release (Adult Low Dose Aspirin) 81 mg PO QDAY 08/19/17 [History Last Taken Unknown] atorvastatin 40 mg tablet 40 mg PO QHS 08/19/17 [History Last Taken Unknown] lisinopril 5 mg tablet 5 mg PO QDAY 30 days #30 tabs 08/19/17 [History Last Taken Unknown] nitroglycerin 0.4 mg sublingual tablet 0.4 mg sublingual Q5-15M PRN Pain 08/19/17 [History Last Taken Unknown] acetaminophen 325 mg capsule 650 mg PO Q8H PRN Pain 11/29/20 [History Last Taken Unknown] acetaminophen 500 mg tablet (Tylenol Extra Strength) 1,000 mg PO QHS 11/29/20 [History Last Taken Unknown] albuterol sulfate 90 mcg/actuation aerosol inhaler (ProAir HFA) 2 puff inhalation Q4H PRN shortness of breath or wheezing 11/29/20 [History Last Taken Unknown] calcium carbonate 400 mg calcium (1,000 mg) chewable tablet (Tums Ultra) 800 mg PO TID PRN Acid Reflux 11/29/20 [History Last Taken Unknown] cholecalciferol (vitamin D3) 125 mcg (5,000 unit) capsule 125 mcg PO DAILY 11/29/20 [History Last Taken Unknown] famotidine 20 mg tablet 20 mg PO BID 11/29/20 [History Last Taken Unknown] furosemide 40 mg tablet 40 mg PO BID 11/29/20 [History Last Taken Unknown] gabapentin 400 mg capsule 400 mg PO BID 11/29/20 [History Last Taken Unknown] insulin detemir U-100 100 unit/mL (3 mL) subcutaneous pen (Levemir FlexTouch U- 100 Insulin) 25 unit subcut DAILY 11/29/20 [History Last Taken Unknown] insulin lispro 100 unit/mL subcutaneous solution (Humalog U-100 Insulin) See Rx Instructions subcut .COMPLEX 11/29/20 [History Last Taken Unknown] loperamide 2 mg capsule 2 mg PO Q12H PRN Diarrhea 11/29/20 [History Last Taken Unknown] loratadine 10 mg capsule 10 mg PO DAILY 11/29/20 [History Last Taken Unknown] lorazepam 0.5 mg tablet 0.5 mg PO QHS 11/29/20 [History Last Taken Unknown] multivitamin 1 tab PO DAILY 11/29/20 [History Last Taken Unknown] ondansetron HCl 4 mg tablet 4 mg PO Q6H 11/29/20 [History Last Taken Unknown] propranolol 60 mg capsule,24 hr,extended release 60 mg PO BID 11/29/20 [History Last Taken Unknown] psyllium husk 0.4 gram capsule (Metamucil) 0.4 g PO DAILY 11/29/20 [History Last Taken Unknown] vitamin B complex-folic acid 0.4 mg tablet (Super B Maxi Complex) 1 tab PO DAILY 11/29/20 [History Last Taken Unknown] insulin glargine 100 unit/mL (3 mL) subcutaneous pen (Lantus Solostar U-100 Insulin) 25 unit subcut LUNCH 11/30/20 [History Last Taken Unknown] primidone 50 mg tablet 50 mg PO QHS 11/30/20 [History Last Taken Unknown] Allergy/AdvReac Type Severity Reaction Status Date / Time Penicillins Allergy Unknown Unknown Verified 07/31/22 20:30 metoprolol AdvReac Mild Nausea Verified 07/31/22 20:30 Family History Grandfather CVA (cerebral vascular accident) Surgical History History of cataract surgery History of left heart catheterization (~08/18/16) History of thoracentesis (~08/2016) Social History Smoking Status: Former smoker Tobacco: How many years used: 40 how long ago did patient quit smoking: about 25 years ago Smoked about 2-3 paks a day alcohol intake: current alcohol intake frequency: holidays/special occasions only substance use type: does not use ROS ROS ED ROS Narrative Constitutional: No fever, no chills. HEENT: No sore throat. No neck pain. No loss of vision. No rhinorrhea. Hit back of head and fall from wheelchair. Cardiovascular: No chest pain. No palpitations. No pedal edema. Respiratory: No cough, no shortness of breath. Abdominal: No abdominal pain. No nausea. No vomiting. Genitourinary: No dysuria. No hematuria. Musculoskeletal: No myalgias. No arthralgias. Neurologic: No headaches. No dizziness. No lightheadedness. Baseline essential tremor, and tremulous voice. Skin: No rash. No change in color. Psychiatric: No depression. No anxiety. EXAM Physical Exam Narrative Exam Narrative: Afebrile. Vital signs noted. GCS 15. ABCs are intact. HEENT: Normocephalic. Atraumatic. PERRL, EOMI. Neck soft and supple. No point tenderness or step off. No outward signs of trauma. Cardiovascular: Regular rate and rhythm. No murmurs, rubs, or gallops appreciated. Respiratory: No tachypnea. Lungs clear to auscultation bilaterally. Gastrointestinal: Abdomen soft, nontender, with normoactive bowel sounds. No rebound or guarding. Neurological: Awake. Alert. Nonfocal, nonlateralizing. Skin: No rash. Normal color. No pallor. Musculoskeletal: No pedal edema. Full range of motion extremities. Const Vital Signs: 07/31/22 20:28 07/31/22 20:42 Temperature 97 F L Temperature Source Temporal Pulse Rate 71 Respiratory Rate 16 Respiratory Effort Normal Non-Labored Respiratory Depth Normal Respiratory Pattern Normal Blood Pressure 129/82 H Blood Pressure Mean 97 Pulse Ox 98 Oxygen Delivery Method Room Air MDM MDM MDM Narrative Medical decision making narrative: Although the patient is not on blood thinners, given his age, I do feel CT of the brain is indicated given his traumatic fall. CT of the brain was obtained which was reviewed and interpreted by myself, I see no evidence of acute hemorrhage or skull fracture. I reviewed the radiology report and agree, they confirm that there is no CT evidence of acute intracranial hemorrhage or injury. At this point in time, I do not feel CT of the neck is indicated as he has full range of motion, no pain, no palpable step-off. I feel he can be discharged safely home with follow-up. Return instructions were reviewed. Disposition is discharged home in stable condition. Radiography Diagnostic Testing: Clinical Impression(s) from Imaging Studies Brain CT 07/31/22 21:33 IMPRESSION: No CT evidence of acute intracranial hemorrhage or injury. Senescent changes and atherosclerosis Electronically Signed: Curt Bragg MD at 22:15 EST , Discharge Plan Triage Chief Complaint: Head Injury ED Provider: John Waller Dx/Rx/DC Orders Clinical Impression: Fall from wheelchair, Closed head injury Instructions: ED Mechanical Fall, ED Head Injury (Adult) Prescriptions: No Action nitroglycerin 0.4 mg tablet, sublingual 0.4 mg SUBLINGUAL Q5-15M PRN (Reason: Pain) lisinopril 5 mg tablet 5 mg PO QDAY 30 Days Qty: 30 Label Comments: atorvastatin 40 mg tablet 40 mg PO QHS aspirin [Adult Low Dose Aspirin] 81 mg tablet,delayed release (DR/EC) 81 mg PO QDAY insulin lispro [Humalog U-100 Insulin] 100 unit/mL solution See Rx Instructions SC .COMPLEX Label Comments: SC Rx Instructions: Inject as per sliding scale: 200-250 = 2u 251-300 = 3u 301-350 = 4u 351-400 = 5u SC with meals Levemir FlexTouch U-100 Insuln 100 unit/mL (3 mL) insulin pen 25 unit SC DAILY Label Comments: 25 units SC QAfternoon acetaminophen 325 mg capsule 650 mg PO Q8H PRN (Reason: Pain) famotidine 20 mg tablet 20 mg PO BID gabapentin 400 mg capsule 400 mg PO BID loperamide 2 mg capsule 2 mg PO Q12H PRN (Reason: Diarrhea) loratadine 10 mg capsule 10 mg PO DAILY lorazepam 0.5 mg tablet 0.5 mg PO QHS psyllium husk [Metamucil] 0.4 gram capsule 0.4 g PO DAILY multivitamin Tablet 1 tab PO DAILY albuterol sulfate [ProAir HFA] 90 mcg/actuation HFA aerosol inhaler 2 puff inhalation Q4H PRN (Reason: shortness of breath or wheezing) propranolol 60 mg capsule,extended release 24 hr 60 mg PO BID vitamin B complex-folic acid [Super B Maxi Complex] 0.4 mg tablet 1 tab PO DAILY ondansetron HCl 4 mg tablet 4 mg PO Q6H cholecalciferol (vitamin D3) 125 mcg (5,000 unit) capsule 125 mcg PO DAILY acetaminophen [Tylenol Extra Strength] 500 mg tablet 1,000 mg PO QHS calcium carbonate [Tums Ultra] 400 mg calcium (1,000 mg) tablet,chewable 800 mg PO TID PRN (Reason: Acid Reflux) furosemide 40 mg tablet 40 mg PO BID primidone 50 mg Tablet 50 mg PO QHS Lantus Solostar U-100 Insulin 100 unit/mL (3 mL) insulin pen 25 unit SUBCUT LUNCH Primary Care Provider: Kyle Aguila Referrals: Kyle Aguila MD [Primary Care Provider] - Disposition Disposition: Assisted Living Discharge Location: [facility]
== END 2022-07-31 22:45 | disposition home or self-care (01) ==
PROVIDERS: Emergency Provider Emergency Medicine; PCP Family Medicine; Visit Provider Emergency Medicine
DX: S09.90XA Unspecified injury of head, initial encounter (principal); J44.9 Chronic obstructive pulmonary disease, unspecified; I50.22 Chronic systolic (congestive) heart failure; E11.40 Type 2 diabetes mellitus with diabetic neuropathy, unspecified; E11.3213 Type 2 diabetes mellitus with mild nonproliferative diabetic retinopathy with macular edema, bilateral; I25.10 Atherosclerotic heart disease of native coronary artery without angina pectoris; Z87.891 Personal history of nicotine dependence; Z99.3 Dependence on wheelchair; V00.811A Fall from moving wheelchair (powered), initial encounter
CPT/HCPCS: 70450; 99284

== ENCOUNTER → 2022-12-31 | Outpatient (CLI) | payer MEDICARE, MEDICAID, SELFPAY ==
[2022-12-31 13:47] LABS: Anion Gap 5 (5-15); BUN 10 mg/dL (7-18); BUN/Creat Ratio 8.9 RATIO (10-20); Calcium,Total 8.8 mg/dL (8.5-10.1); Chloride 107 mmol/L (98-107); Cholesterol 103 mg/dL (200); Creatinine, Serum 1.12 mg/dL (0.70-1.30); EST Glomerular Filtration Rate 68 mL/min (>60); Est Glom Filt Rate - Afr Amer 82 mL/min (>60); Glucose 163 mg/dL (74-106); High Density Lipoprotein 43 mg/dL; Sodium Level 141 mmol/L (136-145); Triglycerides 51 mg/dL; Very Low Density Lipoprotein 10 mg/dL (5-40)
== END | disposition home or self-care (01) ==
LOC: MFPLAB 09:56
PROVIDERS: PCP Family Medicine; Visit Provider Family Medicine
DX: E11.9 Type 2 diabetes mellitus without complications (principal); I10 Essential (primary) hypertension
CPT/HCPCS: 36415; 80048; 80061

== ENCOUNTER 2023-02-06 18:09 | Emergency (ER) | payer MEDICARE, MEDICAID, SELFPAY ==
[2023-02-06] VITALS (8 sets, daily range): BP systolic 144–161; BP diastolic 44–146; PULSE 58–71; RESP 10–19; TEMP 36.3; O2SAT 98–99; BMI 25.6
--- NOTE | 2023-02-06 18:15 | EKG12_ITS ---
Test Reason : CP Blood Pressure : / mmHG Vent. Rate : 060 BPM Atrial Rate : 060 BPM P-R Int : 180 ms QRS Dur : 090 ms QT Int : 430 ms P-R-T Axes : 084 059 -20 degrees QTc Int : 430 ms Normal sinus rhythm Normal ECG Confirmed by LENNY SALAS, PRIETO ([id number]), development editor GINNY COMER ([id number]) on 02/07/2023 10:10:02 AM Referred By: MONTY Confirmed By:PRIETO GALVEZ MD
[2023-02-06 18:38] LABS: Absolute Lymphocyte Count 1.89 X10^3/uL (0.83-4.51); Absolute Neutrophil Count 5.9 X10^3/uL (2.0-7.7); Basophil# 0.06 X10^3/uL; Basophil% 0.7 % (0-1); Eosinophil# 0.21 X10^3/uL; Eosinophils% 2.3 % (0-5); Hematocrit 41.4 % (40-54); Hemoglobin 13.4 g/dL (13.0-16.5); Lymphocyte # 1.89 X10^3/ul (0.83-4.51); Mean Corp Hgb Conc 32.4 g/dL (32-36); Mean Corpuscular Hgb 29.7 pg (27.0-32.0); Mean Corpuscular Volume 91.8 fL (80-94); Mean Platelet Vol. 12.4 fl (6.2-12.0); Monocyte# 0.92 X10^3/uL; Monocyte% 10.2 % (0-10); NRBC Flagged by Analyzer 0 % (0-5); Neutrophil # 5.85 X10^3/uL (2.7-7.7); Neutrophil % 65.2 % (47-70); Platelet Count 200 K/mm3 (150-450); RBC Distribution Width CV 12.9 % (11.6-14.6); RBC Distribution Width SD 43.4 fl (35.1-43.9); Red Blood Count 4.51 M/mm3 (4.6-6.2)
--- NOTE | 2023-02-06 18:39 | RAD_ITS ---
INDICATION: Chest pain EXAMINATION/TECHNIQUE: X-RAY - XR Chest 1 View COMPARISON: 11/30/2020 FINDINGS: LINES/DEVICES: None. LUNGS: No consolidation, edema or effusion. No pneumothorax. MEDIASTINUM AND CARDIOVASCULAR STRUCTURES: Cardiac silhouette not enlarged. Central airways and mediastinal contour are unremarkable. RAD/Chest 1 View (Portable) IMPRESSION: No radiographic evidence of acute cardiopulmonary disease. Electronically Signed: Kyle Montanez MD at 18:53 EDT ,
[2023-02-06 18:54] LABS: Anion Gap 3 (5-15); BUN 18 mg/dL (7-18); BUN/Creat Ratio 14.9 RATIO (10-20); Calcium,Total 9.5 mg/dL (8.5-10.1); Chloride 102 mmol/L (98-107); Creatinine, Serum 1.21 mg/dL (0.70-1.30); EST Glomerular Filtration Rate 62 mL/min (>60); Est Glom Filt Rate - Afr Amer 75 mL/min (>60); Glucose 261 mg/dL (74-106); Potassium 5.1 mmol/L (3.5-5.1); Sodium Level 137 mmol/L (136-145); Troponin-I HS (w/2H Reflex) 18 pg/mL (3.0-78.0)
--- NOTE | 2023-02-06 19:50 | EX.ED.DYSGE1 ---
HPI History of Present Illness Chief Complaint: Chest Pain Detail of Chief Complaint: Left-sided chest pain, back pain and shoulder pain Informant: patient and family Onset/Context/Timing Onset: Weeks Context: Sudden Onset Timing: Intermittent Quality: Pain Location: Previously documented Current Severity: Gone Maximum Severity: Moderate Worsened by: Shoulder pain with movement otherwise nothing Relieved by: Nothing Associated Symptoms Associated Symptoms: No associated symptoms Narrative Narrative: Patient is a 77-year-old male with history of intention tremor, non-ST elevation SD, valvular heart disease, type 2 diabetes, secondary pulmonary artery hypertension, ischemic cardiomyopathy, polyneuropathy and CVA who presents with left anterior chest pain, left scapular pain and left shoulder pain. The shoulder pain is mechanical component. He denies paresthesia, anesthesia motors of the left upper extremity. He presently has no pain in his chest or back. He says is intermittent. It lasts minutes. There are no exacerbating, precipitating or alleviating factors. There are no associated symptoms. He denies headache, visual, ocular auditory symptoms. He denies trouble with speech or swallowing. No sore throat. He denies history of trauma. He denies dyspnea, orthopnea or PND. He denies swelling of his lower extremities. He denies history of GERD, peptic ulcer disease, black or maroon-colored stool. Prior similar symptoms: No Recent Illness/Hospitalization: No [facility] Medical History Anxiety disorder, unspecified Ataxic gait Atherosclerosis of coronary artery of ione heart without angina pectoris Chronic systolic (congestive) heart failure COPD (chronic obstructive pulmonary disease) Diabetes mellitus due to underlying condition with diabetic neuropathy, unspecified Essential tremor Hearing loss Ischemic cardiomyopathy Major depressive disorder, single episode, unspecified Non-rheumatic mitral regurgitation Non-rheumatic mitral valve stenosis Non-STEMI (non-ST elevated myocardial infarction) Old myocardial infarction Other malaise Secondary pulmonary arterial hypertension Tremor, unspecified Type 2 diabetes mellitus with mild nonproliferative diabetic retinopathy with macular edema, bilateral Type 2 diabetes mellitus without complications Home Medications aspirin 81 mg tablet,delayed release (Adult Low Dose Aspirin) 81 mg PO QDAY 08/19/17 [History Last Taken Unknown] atorvastatin 40 mg tablet 40 mg PO QHS 08/19/17 [History Last Taken Unknown] lisinopril 5 mg tablet 5 mg PO QDAY 30 days #30 tabs 08/19/17 [History Last Taken Unknown] nitroglycerin 0.4 mg sublingual tablet 0.4 mg sublingual Q5-15M PRN Pain 08/19/17 [History Last Taken Unknown] acetaminophen 325 mg capsule 650 mg PO Q8H PRN Pain 11/29/20 [History Last Taken Unknown] acetaminophen 500 mg tablet (Tylenol Extra Strength) 1,000 mg PO QHS 11/29/20 [History Last Taken Unknown] albuterol sulfate 90 mcg/actuation aerosol inhaler (ProAir HFA) 2 puff inhalation Q4H PRN shortness of breath or wheezing 11/29/20 [History Last Taken Unknown] calcium carbonate 400 mg calcium (1,000 mg) chewable tablet (Tums Ultra) 800 mg PO TID PRN Acid Reflux 11/29/20 [History Last Taken Unknown] cholecalciferol (vitamin D3) 125 mcg (5,000 unit) capsule 125 mcg PO DAILY 11/29/20 [History Last Taken Unknown] famotidine 20 mg tablet 20 mg PO BID 11/29/20 [History Last Taken Unknown] furosemide 40 mg tablet 40 mg PO BID 11/29/20 [History Last Taken Unknown] gabapentin 400 mg capsule 400 mg PO BID 11/29/20 [History Last Taken Unknown] insulin detemir U-100 100 unit/mL (3 mL) subcutaneous pen (Levemir FlexTouch U-100 Insulin) 25 unit subcut DAILY 11/29/20 [History Last Taken Unknown] insulin lispro 100 unit/mL subcutaneous solution (Humalog U-100 Insulin) See Rx Instructions subcut .COMPLEX 11/29/20 [History Last Taken Unknown] loperamide 2 mg capsule 2 mg PO Q12H PRN Diarrhea 11/29/20 [History Last Taken Unknown] loratadine 10 mg capsule 10 mg PO DAILY 11/29/20 [History Last Taken Unknown] lorazepam 0.5 mg tablet 0.5 mg PO QHS 11/29/20 [History Last Taken Unknown] multivitamin 1 tab PO DAILY 11/29/20 [History Last Taken Unknown] ondansetron HCl 4 mg tablet 4 mg PO Q6H 11/29/20 [History Last Taken Unknown] propranolol 60 mg capsule,24 hr,extended release 60 mg PO BID 11/29/20 [History Last Taken Unknown] psyllium husk 0.4 gram capsule (Metamucil) 0.4 g PO DAILY 11/29/20 [History Last Taken Unknown] vitamin B complex-folic acid 0.4 mg tablet (Super B Maxi Complex) 1 tab PO DAILY 11/29/20 [History Last Taken Unknown] insulin glargine 100 unit/mL (3 mL) subcutaneous pen (Lantus Solostar U-100 Insulin) 25 unit subcut LUNCH 11/30/20 [History Last Taken Unknown] primidone 50 mg tablet 50 mg PO QHS 11/30/20 [History Last Taken Unknown] Allergy/AdvReac Type Severity Reaction Status Date / Time Penicillins Allergy Unknown Unknown Verified 02/06/23 18:10 metoprolol AdvReac Mild Nausea Verified 02/06/23 18:10 Family History Grandfather CVA (cerebral vascular accident) Surgical History History of cataract surgery History of left heart catheterization (~08/18/16) History of thoracentesis (~08/2016) Social History Smoking Status: Former smoker Tobacco: How many years used: 40 how long ago did patient quit smoking: about 25 years ago Smoked about 2-3 paks a day alcohol intake: current alcohol intake frequency: holidays/special occasions only substance use type: does not use ROS ROS ED Constitutional Constitutional ED: Denies chills, fever(s), subjective, sweats or weight loss Eyes Eyes: Reports blurry vision bilateral (Associated with elevated blood sugars greater than 300); Denies change in vision or diplopia ENT ENT ED: Denies ear pain, rhinorrhea or sore throat Cardiovascular Cardiovascular: Reports chest pain; Denies orthopnea, palpitations, paroxysmal nocturnal dyspnea or racing heartbeat Respiratory/Chest Respiratory/Chest: Denies cough, dyspnea, dyspnea on exertion, orthopnea or paroxysmal nocturnal dyspnea Gastrointestinal Gastrointestinal: Denies abdominal pain, nausea or vomiting Genitourinary Genitourinary ED: Denies dysuria, hematuria or urinary frequency Musculoskeletal Musculoskeletal: Reports back pain; Denies arthralgias, myalgias or neck pain Neurologic Neurologic: Denies headache(s), paresthesias or weakness Endocrine Endocrinology: Denies cold intolerance or heat intolerance Hematologic/Lymphatic Hematologic/Lymphatic: Reports systems reviewed and no addt'l complaints, except as documented EXAM Physical Exam Const Vital Signs: 02/06/23 18:10 02/06/23 19:19 02/06/23 19:20 Temperature 97.3 F L Temperature Source Temporal Pulse Rate 62 66 Respiratory Rate 17 18 Respiratory Effort Blood Pressure 161/44 H 159/146 H Blood Pressure Mean 83 150 Pulse Ox 99 98 98 Oxygen Delivery Method Room Air Room Air Room Air 02/06/23 19:20 02/06/23 20:07 02/06/23 21:10 Temperature Temperature Source Pulse Rate 71 70 Respiratory Rate 19 H 16 Respiratory Effort Normal Non-Labored Blood Pressure 144/103 H 144/76 H Blood Pressure Mean 116 98 Pulse Ox Oxygen Delivery Method Room Air Room Air 02/06/23 21:50 Temperature Temperature Source Pulse Rate 64 Respiratory Rate 18 Respiratory Effort Blood Pressure Blood Pressure Mean Pulse Ox 99 Oxygen Delivery Method Room Air Positive well nourished and well developed General Appearance ED: well developed and NAD; Negative for cyanotic, diaphoretic or pallor HEENT Reports moist mucous membranes HEENT Narrative: Ears normal. Nares patent. Posterior pharynx unremarkable. Eyes PERRL and EOMs intact bilaterally General Eye ED: Negative for pale conjunctiva or scleral icterus Neck no lymphadenopathy, supple and no JVD Chest Wall inspection of chest normal and palpation of chest normal Resp normal respiratory effort and clear to auscultation bilaterally Cardio regular rate, regular rhythm, S1 normal heart sound, S2 normal heart sound and no murmurs GI normal to inspection, nondistended, normoactive bowel sounds, non-tender, non-distended and no masses; Negative for hepatosplenomegaly Palpation: soft Back/Spine no CVA tenderness Cervical Spine: Negative for cervical spine tenderness Thoracic Spine / Upper Back: Negative for thoracic spinal tenderness Lumbar Spine / Lower Back: Negative for lumbar spinal tenderness Extremity normal to inspection Extremity Narrative: Axillary, median, radial and ulnar function intact General Extremety ED: Negative for edema or tenderness General Extremity: Negative for edema Neuro oriented x3, CN's II-XII intact bilaterally and no sensory deficits noted Sensorium / Orientation: alert Motor Exam: strength 5/5 throughout Psych mental status grossly normal Skin no rashes or lesions noted, no wounds and skin turgor normal General Skin Exam: Negative for jaundice or pallor MDM MDM MDM Narrative Medical decision making narrative: Nurse protocol orders were entered. Patient's history is not suggestive of cardiac disease. He does have proximal left shoulder pain. He has pain with abduction past 120 degrees. The left shoulder joint is noted on the chest x-ray and is unremarkable. The chest x-ray itself is unremarkable. Also in the differential is muscular chest pain, muscular back pain. Lab Data Attestation: I reviewed the patient's lab results. Lab results narrative: Second troponin is normal as well. Delta 0. White count is unremarkable. Basic metabolic panel is unremarkable. Glucose is elevated to 61 with normal CO2 and anion gap. First troponin is normal at 18. Labs: Laboratory Results - last 24 hr 02/06/23 02/06/23 02/06/23 18:27 20:37 21:30 WBC 9.0 RBC 4.51 L Hgb 13.4 Hct 41.4 MCV 91.8 MCH 29.7 MCHC 32.4 RDW Std Deviation 43.4 RDW Coeff of Beb[place] 12.9 Plt Count 200 MPV 12.4 H Immature Gran % (Auto) 0.600 Neut % (Auto) 65.2 Lymph % (Auto) 21.0 [place] % (Auto) 10.2 H Eos % (Auto) 2.3 Baso % (Auto) 0.7 Absolute Neuts (auto) 5.9 Absolute Lymphs (auto) 1.89 Nucleated RBC % 0 Sodium 137 Potassium 5.1 Chloride 102 Carbon Dioxide 32.0 Anion Gap 3 L BUN 18 Creatinine 1.21 Est GFR (MDRD) Af Amer 75 Est GFR (MDRD) Non-Af 62 BUN/Creatinine Ratio 14.9 Glucose 261 H Calcium 9.5 Troponin I High Sens 18 18 POC Glucose 222 H Radiography Chest X-Ray - ED: 1 View and Read by ED Physician (There are no acute findings. Cardiac silhouette size normal. Perihilar region normal. Also structures are normal. Lung parenchyma is unremarkable.) Diagnostic Testing: Clinical Impression(s) from Imaging Studies Chest X-Ray 02/06/23 18:39 IMPRESSION: No radiographic evidence of acute cardiopulmonary disease. Electronically Signed: Kyle Montanez MD at 18:53 EDT , Treatment and Re-Evaluation :: Patient was informed the cause of his pain is unknown. Suspect he has arthritis of the shoulder. His laboratory studies are unremarkable with exception of elevated blood sugar. Discharge Plan Triage Chief Complaint: Chest Pain ED Provider: Serjio Blair Dx/Rx/DC Orders Clinical Impression: Acute left-sided thoracic back pain, Chronic systolic (congestive) heart failure, Atherosclerosis of coronary artery of ione heart without angina pectoris, Ischemic cardiomyopathy, Essential tremor, Arthralgia of left shoulder region, Type 2 diabetes mellitus with hyperglycemia Instructions: ED Chest Pain, Noncardiac, ED Shoulder Pain, Uncertain Cause Prescriptions: No Action nitroglycerin 0.4 mg tablet, sublingual 0.4 mg SUBLINGUAL Q5-15M PRN (Reason: Pain) lisinopril 5 mg tablet 5 mg PO QDAY 30 Days Qty: 30 Patient Comments: atorvastatin 40 mg tablet 40 mg PO QHS aspirin [Adult Low Dose Aspirin] 81 mg tablet,delayed release (DR/EC) 81 mg PO QDAY insulin lispro [Humalog U-100 Insulin] 100 unit/mL solution See Rx Instructions SC .COMPLEX Patient Comments: SC Rx Instructions: Inject as per sliding scale: 200-250 = 2u 251-300 = 3u 301-350 = 4u 351-400 = 5u SC with meals Levemir FlexTouch U100 Insulin 100 unit/mL (3 mL) insulin pen 25 unit SC DAILY Patient Comments: 25 units SC QAfternoon acetaminophen 325 mg capsule 650 mg PO Q8H PRN (Reason: Pain) famotidine 20 mg tablet 20 mg PO BID gabapentin 400 mg capsule 400 mg PO BID loperamide 2 mg capsule 2 mg PO Q12H PRN (Reason: Diarrhea) loratadine 10 mg capsule 10 mg PO DAILY lorazepam 0.5 mg tablet 0.5 mg PO QHS psyllium husk [Metamucil] 0.4 gram capsule 0.4 g PO DAILY multivitamin Tablet 1 tab PO DAILY albuterol sulfate [ProAir HFA] 90 mcg/actuation HFA aerosol inhaler 2 puff inhalation Q4H PRN (Reason: shortness of breath or wheezing) propranolol 60 mg capsule,extended release 24 hr 60 mg PO BID vitamin B complex-folic acid [Super B Maxi Complex] 0.4 mg tablet 1 tab PO DAILY ondansetron HCl 4 mg tablet 4 mg PO Q6H cholecalciferol (vitamin D3) 125 mcg (5,000 unit) capsule 125 mcg PO DAILY acetaminophen [Tylenol Extra Strength] 500 mg tablet 1,000 mg PO QHS calcium carbonate [Tums Ultra] 400 mg calcium (1,000 mg) tablet,chewable 800 mg PO TID PRN (Reason: Acid Reflux) furosemide 40 mg tablet 40 mg PO BID primidone 50 mg Tablet 50 mg PO QHS Lantus Solostar U-100 Insulin 100 unit/mL (3 mL) insulin pen 25 unit SUBCUT LUNCH Primary Care Provider: Kyle Aguila Referrals: Kyle Aguila MD [Primary Care Provider] - 3-5 Days if not improving Disposition Disposition: Home, Self Care
[2023-02-06 20:29] LABS: Reflex Troponin-HS? (from REC) Y
[2023-02-06 20:59] LABS: Troponin-I HS 18 pg/mL (3.0-78.0)
[2023-02-06 21:48] LABS: Bedside Glucose 222 mg/dL (74-106)
--- NOTE | 2023-02-06 22:04 | ED.RN ---
THIS RN ATTEMPTED TO CALL [facility] TO GIVE PT REPORT. NO ANSWER AT [id number].
== END 2023-02-06 22:13 | disposition home or self-care (01) ==
PROVIDERS: Emergency Provider Emergency Medicine; PCP Family Medicine; Visit Provider Emergency Medicine
DX: M54.6 Pain in thoracic spine (principal); J44.9 Chronic obstructive pulmonary disease, unspecified; I50.22 Chronic systolic (congestive) heart failure; E11.65 Type 2 diabetes mellitus with hyperglycemia; E11.42 Type 2 diabetes mellitus with diabetic polyneuropathy; I25.5 Ischemic cardiomyopathy; I25.10 Atherosclerotic heart disease of native coronary artery without angina pectoris; M25.512 Pain in left shoulder; Z87.891 Personal history of nicotine dependence; G25.0 Essential tremor
CPT/HCPCS: 71045; 80048; 82962; 84484; 85025; 93005; 99285; A4216

== ENCOUNTER → 2023-05-18 | Outpatient (CLI) | payer MEDICARE, MEDICAID, SELFPAY ==
[2023-05-18 18:22] LABS: Anion Gap 5 (5-15); BUN 20 mg/dL (7-18); Calcium,Total 8.9 mg/dL (8.5-10.1); Chloride 106 mmol/L (98-107); Cholesterol 114 mg/dL (200); Creatinine, Serum 1.25 mg/dL (0.70-1.30); EST Glomerular Filtration Rate 59 mL/min (>60); Est Glom Filt Rate - Afr Amer 72 mL/min (>60); Glucose 231 mg/dL (74-106); High Density Lipoprotein 50 mg/dL; Potassium 4.6 mmol/L (3.5-5.1); Sodium Level 141 mmol/L (136-145); Triglycerides 53 mg/dL; Very Low Density Lipoprotein 11 mg/dL (5-40)
== END | disposition home or self-care (01) ==
LOC: MFPLAB 15:11
PROVIDERS: PCP Family Medicine; Visit Provider Family Medicine
DX: E11.8 Type 2 diabetes mellitus with unspecified complications (principal)
CPT/HCPCS: 36415; 80048; 80061; 83036

== ENCOUNTER → 2023-10-26 | Outpatient (CLI) | payer MEDICARE, MEDICAID, SELFPAY ==
--- NOTE | 2023-10-26 12:55 | RAD_ITS ---
STUDY: X-RAY CHEST REASON FOR EXAM: Male, 78 years old. SOB TECHNIQUE: PA and lateral views of the chest. COMPARISON: February 06, 2023. FINDINGS: There are mild lower lung increased opacities. There are small pleural effusions. Normal size heart. Normal mediastinum and lobito. Normal visualized pulmonary arteries. Normal visualized aortic arch and descending thoracic aorta. Normal visualized thoracic spine. Normal visualized ribs, clavicles, and shoulders. There is no demonstrated abnormality of the visualized soft tissue structures of the upper abdomen. RAD/Chest PA and Lateral IMPRESSION: Lower lung edema or infiltrates and small pleural effusions. Electronically Signed: Sang Martinez MD at 20:00 EDT ,
[2023-10-26 15:45] LABS: Absolute Lymphocyte Count 0.98 X10^3/uL (0.83-4.51); Absolute Neutrophil Count 5.8 X10^3/uL (2.0-7.7); Basophil# 0.05 X10^3/uL; Basophil% 0.6 % (0-1); Eosinophil# 0.25 X10^3/uL; Eosinophils% 3.2 % (0-5); Hematocrit 37.5 % (40-54); Hemoglobin 11.5 g/dL (13.0-16.5); Lymphocyte # 0.98 X10^3/ul (0.83-4.51); Lymphocyte % 12.5 % (19-41); Mean Corp Hgb Conc 30.7 g/dL (32-36); Mean Corpuscular Hgb 28.3 pg (27.0-32.0); Mean Corpuscular Volume 92.4 fL (80-94); Mean Platelet Vol. 12.5 fl (6.2-12.0); Monocyte# 0.72 X10^3/uL; Monocyte% 9.2 % (0-10); NRBC Flagged by Analyzer 0 % (0-5); Neutrophil # 5.83 X10^3/uL (2.7-7.7); Neutrophil % 74.1 % (47-70); Platelet Count 239 K/mm3 (150-450); RBC Distribution Width CV 14.6 % (11.6-14.6); RBC Distribution Width SD 49.5 fl (35.1-43.9); Red Blood Count 4.06 M/mm3 (4.6-6.2); White Blood Count 7.9 K/mm3 (4.4-11.0)
[2023-10-26 16:10] LABS: Anion Gap 4 (5-15); BUN 12 mg/dL (7-18); BUN/Creat Ratio 10.6 RATIO (10-20); Calcium,Total 8.8 mg/dL (8.5-10.1); Chloride 107 mmol/L (98-107); Creatinine, Serum 1.13 mg/dL (0.70-1.30); EST Glomerular Filtration Rate 67 mL/min (>60); Est Glom Filt Rate - Afr Amer 81 mL/min (>60); Glucose 99 mg/dL (74-106); Potassium 3.4 mmol/L (3.5-5.1); Sodium Level 142 mmol/L (136-145)
[2023-10-26 16:17] LABS: BNP,B-Type NATRIURETIC PEPTIDE 825.3 pg/mL (0-100)
== END | disposition home or self-care (01) ==
PROVIDERS: PCP Family Medicine; Referring Provider Family Medicine; Visit Provider Family Medicine
DX: R06.02 Shortness of breath (principal)
CPT/HCPCS: 36415; 71046; 80048; 83880; 85025

== ENCOUNTER 2023-11-01 11:53 | Inpatient (IN) | payer MEDICARE, MEDICAID, SELFPAY ==
[2023-11-01] VITALS (10 sets, daily range): BP systolic 141–182; BP diastolic 52–74; PULSE 64–78; RESP 16–26; TEMP 36.3–36.8; O2SAT 80–96; BMI 25.7; BMI 25.2
--- NOTE | 2023-11-01 12:15 | RAD_ITS ---
INDICATION: pain EXAMINATION/TECHNIQUE: X-RAY - XR Spine Lumbar 2 or 3 Views COMPARISON: No relevant prior comparison study available FINDINGS: VERTEBRAE: Preserved vertebral body height. No fracture. No spondylolisthesis. Preservation of the normal lumbar lordosis. No significant facet arthropathy. DISCS: Narrowing of L4-L5 disc space with vacuum disc. Endplate spondylosis. Mild narrowing of L3-L4 disc space. INCLUDED ABDOMEN: Atherosclerotic calcifications of the abdominal aorta. RAD/Lumbar Spine 2 or 3 Views IMPRESSION: No evidence of lumbar spinal fracture or spondylolisthesis. Electronically Signed: Vipul Garcia MD at 12:55 EDT ,
--- NOTE | 2023-11-01 12:26 | ED.VIS.BACK ---
HPI <VERENICE Antoine - Last Filed: 11/01/23 16:57> History of Present Illness Chief Complaint: Back Narrative Narrative: 78-year-old male states he has had bilateral low back pain over the last 3 weeks. He had no fall or injury. He uses an electric wheelchair and only stands to pivot. 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 He is in assisted living and can usually stand and transfer himself. Today he could not get off the toilet due to the pain and had to call for help. His family is very involved in his care and states they do sometimes assist him to stand and his right leg is chronically more weak. He has no new weakness. He has no bladder or bowel incontinence. He has no history of back surgeries. He did note a urine odor today. He is on gabapentin for neuropathy but takes no other pain relievers. [facility] <VERENICE Antoine - Last Filed: 11/01/23 16:57> [facility] Medical History Anxiety disorder, unspecified Ataxic gait Atherosclerosis of coronary artery of [place] heart without angina pectoris Chronic systolic (congestive) heart failure COPD (chronic obstructive pulmonary disease) Diabetes mellitus due to underlying condition with diabetic neuropathy, unspecified Essential tremor Hearing loss Ischemic cardiomyopathy Major depressive disorder, single episode, unspecified Non-rheumatic mitral regurgitation Non-rheumatic mitral valve stenosis Non-STEMI (non-ST elevated myocardial infarction) Old myocardial infarction Other malaise Secondary pulmonary arterial hypertension Tremor, unspecified Type 2 diabetes mellitus with mild nonproliferative diabetic retinopathy with macular edema, bilateral Type 2 diabetes mellitus without complications Home Medications aspirin 81 mg tablet,delayed release (Adult Low Dose Aspirin) 81 mg PO QDAY 08/19/17 [History Last Taken Unknown] atorvastatin 40 mg tablet 40 mg PO QHS 08/19/17 [History Last Taken Unknown] lisinopril 5 mg tablet 5 mg PO QDAY 30 days #30 tabs 08/19/17 [History Last Taken Unknown] nitroglycerin 0.4 mg sublingual tablet 0.4 mg sublingual Q5-15M PRN Pain 08/19/17 [History Last Taken Unknown] acetaminophen 325 mg capsule 650 mg PO Q8H PRN Pain 11/29/20 [History Last Taken Unknown] acetaminophen 500 mg tablet (Tylenol Extra Strength) 1,000 mg PO QHS 11/29/20 [History Last Taken Unknown] albuterol sulfate 90 mcg/actuation aerosol inhaler (ProAir HFA) 2 puff inhalation Q4H PRN shortness of breath or wheezing 11/29/20 [History Last Taken Unknown] calcium carbonate (Tums Ultra) 800 mg PO TID PRN Acid Reflux 11/29/20 [History Last Taken Unknown] cholecalciferol (vitamin D3) 125 mcg (5,000 unit) capsule 125 mcg PO DAILY 11/29/20 [History Last Taken Unknown] famotidine 20 mg tablet 20 mg PO BID 11/29/20 [History Last Taken Unknown] furosemide 40 mg tablet 40 mg PO BID 11/29/20 [History Last Taken Unknown] gabapentin 400 mg capsule 400 mg PO BID 11/29/20 [History Last Taken Unknown] insulin detemir U-100 100 unit/mL (3 mL) subcutaneous pen (Levemir FlexTouch U-100 Insulin) 25 unit subcut DAILY 11/29/20 [History Last Taken Unknown] insulin lispro 100 unit/mL subcutaneous solution (Humalog U-100 Insulin) See Rx Instructions subcut .COMPLEX 11/29/20 [History Last Taken Unknown] loperamide 2 mg capsule 2 mg PO Q12H PRN Diarrhea 11/29/20 [History Last Taken Unknown] loratadine 10 mg capsule 10 mg PO DAILY 11/29/20 [History Last Taken Unknown] lorazepam 0.5 mg tablet 0.5 mg PO QHS 11/29/20 [History Last Taken Unknown] multivitamin 1 tab PO DAILY 11/29/20 [History Last Taken Unknown] ondansetron HCl 4 mg tablet 4 mg PO Q6H 11/29/20 [History Last Taken Unknown] propranolol 60 mg capsule,24 hr,extended release 60 mg PO BID 11/29/20 [History Last Taken Unknown] psyllium husk 0.4 gram capsule (Metamucil) 0.4 g PO DAILY 11/29/20 [History Last Taken Unknown] vitamin B complex-folic acid 0.4 mg tablet (Super B Maxi Complex) 1 tab PO DAILY 11/29/20 [History Last Taken Unknown] insulin glargine 100 unit/mL (3 mL) subcutaneous pen (Lantus Solostar U-100 Insulin) 25 unit subcut LUNCH 11/30/20 [History Last Taken Unknown] primidone 50 mg tablet 50 mg PO QHS 11/30/20 [History Last Taken Unknown] hydrocodone-acetaminophen 5-325mg 5mg-325mg 1 tab PO Q6H 2 days #8 tabs 11/01/23 [Rx Last Taken Unknown] orphenadrine citrate 100 mg tablet,extended release 100 mg PO Q12H 5 days #10 tabs 11/01/23 [Rx Last Taken Unknown] Allergy/AdvReac Type Severity Reaction Status Date / Time Penicillins Allergy Unknown Unknown Verified 11/01/23 11:55 metoprolol AdvReac Mild Nausea Verified 11/01/23 11:55 Family History Grandfather CVA (cerebral vascular accident) Surgical History History of cataract surgery History of left heart catheterization (~08/18/16) History of thoracentesis (~08/2016) Social History Smoking Status: Former smoker Tobacco: How many years used: 40 how long ago did patient quit smoking: about 25 years ago Smoked about 2-3 paks a day alcohol intake: current alcohol intake frequency: holidays/special occasions only substance use type: does not use ROS <VERENICE Antoine - Last Filed: 11/01/23 16:57> ROS ED ROS Narrative Constitutional: Negative for fever, chills, malaise. GI: Negative for abdominal pain, nausea, vomiting. : Negative for dysuria, hematuria or frequency. Neuro: Negative for new motor dysfunction. Skin: Negative for rash, abscess, or wound. EXAM <VERENICE Antoine - Last Filed: 11/01/23 16:57> Physical Exam Narrative Exam Narrative: CONST: Patient sitting in no acute distress. EYES: Normal inspection. NECK: Normal inspection. RESP: No respiratory distress, CTAB. CVS: Regular rate and rhythm, no murmur, no gallop. ABD: Soft and nontender, no guarding or rebound, nondistended. Back: Normal inspection, no midline tenderness. Tender over bilateral lumbar muscles. SKIN: Color normal, no rash, warm, dry, intact. EXTREMITIES: 2+ pedal edema both legs, no warmth or erythema. 5/5 left hip flexion and DF/PF, poor effort in moving right leg which family states is chronic. Decreased sensation to light touch below both knees from neuropathy. NEURO: Alert and answering questions appropriately, voice tremulous. PSYCH: Normal affect. Const Vital Signs: 11/01/23 11:54 11/01/23 13:54 11/01/23 15:19 Temperature 97.4 F L 97.9 F Temperature Source Temporal Oral Pulse Rate 71 74 64 Respiratory Rate 16 18 24 H Blood Pressure 156/63 H 150/62 H 152/52 H Blood Pressure Mean 94 91 85 Pulse Ox 93 95 80 Oxygen Delivery Method Room Air Room Air Oxygen Flow Rate (L/min) 11/01/23 15:20 Temperature Temperature Source Pulse Rate Respiratory Rate Blood Pressure Blood Pressure Mean Pulse Ox 91 Oxygen Delivery Method Nasal Cannula Oxygen Flow Rate (L/min) 2 <Dr. Sang Torres MD - Last Filed: 11/01/23 13:15> Physical Exam Const Vital Signs: 11/01/23 11:54 11/01/23 13:54 11/01/23 15:19 Temperature 97.4 F L 97.9 F Temperature Source Temporal Oral Pulse Rate 71 74 64 Respiratory Rate 16 18 24 H Blood Pressure 156/63 H 150/62 H 152/52 H Blood Pressure Mean 94 91 85 Pulse Ox 93 95 80 Oxygen Delivery Method Room Air Room Air Oxygen Flow Rate (L/min) 11/01/23 15:20 Temperature Temperature Source Pulse Rate Respiratory Rate Blood Pressure Blood Pressure Mean Pulse Ox 91 Oxygen Delivery Method Nasal Cannula Oxygen Flow Rate (L/min) [address] [facility] <VERENICE Antoine - Last Filed: 11/01/23 16:57> [facility] Narrative Medical decision making narrative: History gathered from: Patient and family Patient has had 3 weeks of bilateral low back pain worse with movement. He has very limited mobility at baseline and has had no trauma or falls. He appears well and nontoxic and is afebrile and hemodynamically stable. He is reproducible bilateral lumbar tenderness. No midline tenderness. Within limits of his chronic neuropathy and weakness his lower extremities are neurologically intact. I ordered a lumbar x-ray due to advanced age and it shows no acute findings. He was treated with [place] here and felt better and was going to be prescribed home with [place] and Norflex for breakthrough pain. Urinalysis was ordered since he noted an odor today. The nurse went in to give him a urinal and he is lips looked blue so he placed him on a shelter monitor and he was 80% on room air. He was placed on 2 L nasal cannula. Patient reports over the last 3 weeks he has felt tired and short of breath. He states he saw his primary care doctor and had blood work and a chest x-ray and was told he had fluid on the lungs. He is on Lasix 40 mg once daily and yesterday was instructed to start Aldactone x 1 week. Labs show normal white count of 9.5 and stable anemia at 12.0. Overall electrolytes and renal function are unremarkable. BNP is 1100 up from the 800s a couple days ago and CXR shows small bilateral pleural effusions. I ordered IV Lasix 40 mg and since he is still requiring 2 L O2 I will discuss with the hospitalist for admission. Lab Data Attestation: I reviewed the patient's lab results. Labs: Laboratory Results - last 24 hr 11/01/23 11/01/23 15:07 15:45 WBC 9.5 RBC 4.21 L Hgb 12.0 L Hct 37.7 L MCV 89.5 MCH 28.5 MCHC 31.8 L RDW Std Deviation 46.6 H RDW Coeff of [place]eb[place] 14.5 Plt Count 217 MPV 11.6 Immature Gran % (Auto) 0.200 Neut % (Auto) 76.8 H Lymph % (Auto) 12.5 L Cloud % (Auto) 8.5 Eos % (Auto) 1.4 Baso % (Auto) 0.6 Absolute Neuts (auto) 7.3 Absolute Lymphs (auto) 1.19 Nucleated RBC % 0 Sodium 142 Potassium 3.4 L Chloride 102 Carbon Dioxide 38.0 H Anion Gap 2 L BUN 15 Creatinine 0.95 Estim Creat Clear Calc 57.83 Est GFR (MDRD) Af Amer 98 Est GFR (MDRD) Non-Af 81 BUN/Creatinine Ratio 15.7 Glucose 184 H Calcium 8.9 Troponin I High Sens 40 B-Natriuretic Peptide 1102.6 H Urine Color Yellow Urine Clarity Clear Urine pH 6.5 Ur Specific [place] 1.015 Urine Protein 100 H Urine Glucose (UA) 100 H Urine Ketones Negative Urine Occult Blood 25 H Urine Nitrite Negative Urine Bilirubin Negative Urine Urobilinogen 8 H Ur Leukocyte Esterase Negative Urine RBC 0-5 SEEN Urine WBC 0 SEEN Ur Squamous Epith Cells 0 SEEN Urine Bacteria 0 SEEN Urine Mucus 0 SEEN Radiography Diagnostic Testing: Clinical Impression(s) from Imaging Studies Lumbar Spine X-Ray 11/01/23 12:15 IMPRESSION: No evidence of lumbar spinal fracture or spondylolisthesis. Electronically Signed: Vipul Garcia MD at 12:55 EDT , Chest X-Ray 11/01/23 15:50 IMPRESSION: Lower lobe atelectasis. Small lower lobe pleural effusions. Electronically Signed: James Amezcua MD at 16:14 EDT , ED attending interpretation 1 view chest x-ray shows small bilateral pleural effusions. ED attending interpretation lumbar spine shows no acute fracture. <Dr. Sang Torres MD - Last Filed: 11/01/23 13:15> [facility] Lab Data Labs: Laboratory Results - last 24 hr 11/01/23 11/01/23 15:07 15:45 WBC 9.5 RBC 4.21 L Hgb 12.0 L Hct 37.7 L MCV 89.5 MCH 28.5 MCHC 31.8 L RDW Std Deviation 46.6 H RDW Coeff of [place] 14.5 Plt Count 217 MPV 11.6 Immature Gran % (Auto) 0.200 Neut % (Auto) 76.8 H Lymph % (Auto) 12.5 L Cloud % (Auto) 8.5 Eos % (Auto) 1.4 Baso % (Auto) 0.6 Absolute Neuts (auto) 7.3 Absolute Lymphs (auto) 1.19 Nucleated RBC % 0 Sodium 142 Potassium 3.4 L Chloride 102 Carbon Dioxide 38.0 H Anion Gap 2 L BUN 15 Creatinine 0.95 Estim Creat Clear Calc 57.83 Est GFR (MDRD) Af Amer 98 Est GFR (MDRD) Non-Af 81 BUN/Creatinine Ratio 15.7 Glucose 184 H Calcium 8.9 Troponin I High Sens 40 B-Natriuretic Peptide 1102.6 H Urine Color Yellow Urine Clarity Clear Urine pH 6.5 Ur Specific [place] 1.015 Urine Protein 100 H Urine Glucose (UA) 100 H Urine Ketones Negative Urine Occult Blood 25 H Urine Nitrite Negative Urine Bilirubin Negative Urine Urobilinogen 8 H Ur Leukocyte Esterase Negative Urine RBC 0-5 SEEN Urine WBC 0 SEEN Ur Squamous Epith Cells 0 SEEN Urine Bacteria 0 SEEN Urine Mucus 0 SEEN Radiography Diagnostic Testing: Clinical Impression(s) from Imaging Studies Lumbar Spine X-Ray 11/01/23 12:15 IMPRESSION: No evidence of lumbar spinal fracture or spondylolisthesis. Electronically Signed: Vipul Garcia MD at 12:55 EDT , Chest X-Ray 11/01/23 15:50 IMPRESSION: Lower lobe atelectasis. Small lower lobe pleural effusions. Electronically Signed: James Amezcua MD at 16:14 EDT , Differential Diagnosis Differential Diagnosis: I have personally performed a face to face assessment of the patient and have reviewed the TE Note. I performed a substantive portion of the visit including all aspects of the following. My sifuentes findings include: History is unknown onset of back pain for weeks, getting worse especially with movement, which makes him experience spasms in the right low back. He denies any radiation down his leg or new areas of numbness. Chronic numbness in both feet. Chronic weakness in the right lower extremity is unchanged. Denies any abdominal pain. Denies syncope or other systemic symptoms otherwise. Exam is very tender in the right low back, reproducing his back pain and spasms. This is in the paraspinal musculature no tenderness in the midline. No rash, normal on expansion. No SI joint tenderness or buttock/sciatic notch. Negative straight leg raises bilaterally. Hyporeflexive symmetric. Medical Decison Making x-rays of the low back, 3 views of mitral rotation negative for any acute. Patient will be treated symptomatically for what is likely musculoskeletal in etiology. He does use a rollator on occasion and has trouble doing so, increasing the chances for twisting or injuring the musculature of his back. Other additions or changes: [None] Discharge Plan Triage Chief Complaint: Back ED Midlevel Provider: Zhane Norman ED Provider: Sang Torres Dx/Rx/DC Orders Clinical Impression: Acute exacerbation of CHF (congestive heart failure), Acute lumbar myofascial strain, Hypoxia Instructions: ED Back Sprain/Strain Prescriptions: New hydrocodone-acetaminophen 5-325 mg tablet 1 tab PO Q6H 2 Days Qty: 8 0RF orphenadrine citrate 100 mg tablet extended release 100 mg PO Q12H 5 Days Qty: 10 0RF No Action nitroglycerin 0.4 mg tablet, sublingual 0.4 mg SUBLINGUAL Q5-15M PRN (Reason: Pain) lisinopril 5 mg tablet 5 mg PO QDAY 30 Days Qty: 30 Patient Comments: atorvastatin 40 mg tablet 40 mg PO QHS aspirin [Adult Low Dose Aspirin] 81 mg tablet,delayed release (DR/EC) 81 mg PO QDAY insulin lispro [Humalog U-100 Insulin] 100 unit/mL solution See Rx Instructions SC .COMPLEX Patient Comments: SC Rx Instructions: Inject as per sliding scale: 200-250 = 2u 251-300 = 3u 301-350 = 4u 351-400 = 5u SC with meals Levemir FlexTouch U100 Insulin 100 unit/mL (3 mL) insulin pen 25 unit SC DAILY Patient Comments: 25 units SC QAfternoon acetaminophen 325 mg capsule 650 mg PO Q8H PRN (Reason: Pain) famotidine 20 mg tablet 20 mg PO BID gabapentin 400 mg capsule 400 mg PO BID loperamide 2 mg capsule 2 mg PO Q12H PRN (Reason: Diarrhea) loratadine 10 mg capsule 10 mg PO DAILY lorazepam 0.5 mg tablet 0.5 mg PO QHS psyllium husk [Metamucil] 0.4 gram capsule 0.4 g PO DAILY multivitamin Tablet 1 tab PO DAILY albuterol sulfate [ProAir HFA] 90 mcg/actuation HFA aerosol inhaler 2 puff inhalation Q4H PRN (Reason: shortness of breath or wheezing) propranolol 60 mg capsule,extended release 24 hr 60 mg PO BID vitamin B complex-folic acid [Super B Maxi Complex] 0.4 mg tablet 1 tab PO DAILY ondansetron HCl 4 mg tablet 4 mg PO Q6H cholecalciferol (vitamin D3) 125 mcg (5,000 unit) capsule 125 mcg PO DAILY acetaminophen [Tylenol Extra Strength] 500 mg tablet 1,000 mg PO QHS calcium carbonate [Tums Ultra] 400 mg calcium (1,000 mg) tablet,chewable 800 mg PO TID PRN (Reason: Acid Reflux) furosemide 40 mg tablet 40 mg PO BID primidone 50 mg Tablet 50 mg PO QHS Lantus Solostar U-100 Insulin 100 unit/mL (3 mL) insulin pen 25 unit SUBCUT LUNCH Primary Care Provider: Kyle Aguila Referrals: Kyle Aguila MD [Primary Care Provider] - Activity Restrictions/Additional Instructions: I recommend Tylenol 1000 mg every 6 hours for pain. For more severe breakthrough pain you can take hydrocodone. You can also trial heat or ice. Follow-up with your primary care doctor. Disposition Disposition: Home, Self Care
[2023-11-01] MEDS: Ondansetron ODT 4 MG Tablet PO (12:34)
[2023-11-01] MEDS: Oxycodone/Apap 5/325 Tablet PO (12:35)
[2023-11-01 15:19] LABS: Bacteria 0 SEEN /hpf (None Seen); Mucous, Urine 0 SEEN /hpf (<or=2+); Squamous Epithelial Cells - UA 0 SEEN /hpf (0-5); White Blood Cells 0 SEEN /hpf (0-5)
[2023-11-01 15:24] LABS: Color, Urine Yellow (Yellow); Glucose, Dipstick 100 mg/dl (Normal); Ketone-Dipstick Negative (Negative); Leukocyte Esterase-Dipstick Negative /ul (Negative); Nitrite-Dipstick Negative (Negative); Occult Blood-Urine 25 /ul (Negative); Protein-Dipstick 100 mg/dl (Negative); Specific Gravity, Urine 1.015 (1.002-1.030); Urine Bilirubin Dipstick Negative (Negative); Urine Clarity Clear (Clear); Urine Urobilinogen 8 mg/dl (Normal); Urine pH 6.5 (5.0 - 8.0)
[2023-11-01 15:33] LABS: Red Blood Cells-Urine 0-5 SEEN /hpf (0-5)
--- NOTE | 2023-11-01 15:50 | RAD_ITS ---
EXAM: XR CHEST, 1 VIEW CLINICAL INDICATION: dyspnea TECHNIQUE: Frontal view of the chest. COMPARISON: 10/26/2023 FINDINGS: LUNGS AND PLEURAL SPACES: Lower lobe atelectasis. Small lower lobe pleural effusions. No pneumothorax. HEART: Unremarkable. Cardiac silhouette not enlarged. MEDIASTINUM: Central airways and mediastinal contour are unremarkable. BONES/JOINTS: Unremarkable. No acute fracture. SOFT TISSUES: Unremarkable. RAD/Chest 1 View (Portable) IMPRESSION: Lower lobe atelectasis. Small lower lobe pleural effusions. Electronically Signed: James Amezcua MD at 16:14 EDT ,
[2023-11-01 15:52] LABS: Absolute Lymphocyte Count 1.19 X10^3/uL (0.83-4.51); Absolute Neutrophil Count 7.3 X10^3/uL (2.0-7.7); Basophil# 0.06 X10^3/uL; Basophil% 0.6 % (0-1); Eosinophil# 0.13 X10^3/uL; Eosinophils% 1.4 % (0-5); Hematocrit 37.7 % (40-54); Lymphocyte # 1.19 X10^3/ul (0.83-4.51); Lymphocyte % 12.5 % (19-41); Mean Corp Hgb Conc 31.8 g/dL (32-36); Mean Corpuscular Hgb 28.5 pg (27.0-32.0); Mean Corpuscular Volume 89.5 fL (80-94); Mean Platelet Vol. 11.6 fl (6.2-12.0); Monocyte# 0.81 X10^3/uL; Monocyte% 8.5 % (0-10); NRBC Flagged by Analyzer 0 % (0-5); Neutrophil # 7.28 X10^3/uL (2.7-7.7); Neutrophil % 76.8 % (47-70); Platelet Count 217 K/mm3 (150-450); RBC Distribution Width CV 14.5 % (11.6-14.6); RBC Distribution Width SD 46.6 fl (35.1-43.9); Red Blood Count 4.21 M/mm3 (4.6-6.2); White Blood Count 9.5 K/mm3 (4.4-11.0)
[2023-11-01 16:14] LABS: Anion Gap 2 (5-15); BUN 15 mg/dL (7-18); BUN/Creat Ratio 15.7 RATIO (10-20); Calcium,Total 8.9 mg/dL (8.5-10.1); Chloride 102 mmol/L (98-107); Creatinine, Serum 0.95 mg/dL (0.70-1.30); EST Glomerular Filtration Rate 81 mL/min (>60); Est Glom Filt Rate - Afr Amer 98 mL/min (>60); Estimated Creatinine Clearance 57.83 ml/min; Glucose 184 mg/dL (74-106); Potassium 3.4 mmol/L (3.5-5.1); Sodium Level 142 mmol/L (136-145); Troponin-I HS 40 pg/mL (3.0-78.0)
[2023-11-01 16:15] LABS: BNP,B-Type NATRIURETIC PEPTIDE 1102.6 pg/mL (0-100)
--- NOTE | 2023-11-01 16:52 | NURSING ---
HOSPITALIST FOR JULES
--- NOTE | 2023-11-01 16:54 | NURSING ---
MED SURG RACHEL CHF, HYPOXIA
--- NOTE | 2023-11-01 17:13 | PCM.HP.STD ---
[facility] - General General Date of Admission: 11/01/23 Date of Service: 11/01/23 Chief Complaint: Shortness of breath HPI Narrative TRINA SPENCER, is a 78 M with past medical history of cerebrovascular disease, tremors, coronary artery disease, ischemic cardiomyopathy, type 2 diabetes [poorly controlled], nonrheumatic mitral valve stenosis, who presents to the ED with progressive back pain and shortness of breath. He was brought to the ED from his assisted living facility for worsening back pain and difficulty in transferring from his chair to bed. Upon evaluation in the ED he was found to be hypoxic with saturation dropping till 80% and required oxygen. Per the patient he has been feeling short of breath progressively for the last few months, with associated orthopnea but no paroxysmal nocturnal dyspnea. He recently visited his PCP who noted worsening pedal edema and he was started on Aldactone 25 mg. The daughter at bedside notes that there has been no changes in his shortness of breath since initiation of the diuretics. The patient and daughter note that he does not want any extensive evaluation and would prefer to go hospice if the heart failure cannot be managed medically [facility] Medical History Anxiety disorder, unspecified Ataxic gait Atherosclerosis of coronary artery of [place] heart without angina pectoris Chronic systolic (congestive) heart failure COPD (chronic obstructive pulmonary disease) Diabetes mellitus due to underlying condition with diabetic neuropathy, unspecified Essential tremor Hearing loss Ischemic cardiomyopathy Major depressive disorder, single episode, unspecified Non-rheumatic mitral regurgitation Non-rheumatic mitral valve stenosis Non-STEMI (non-ST elevated myocardial infarction) Old myocardial infarction Other malaise Secondary pulmonary arterial hypertension Tremor, unspecified Type 2 diabetes mellitus with mild nonproliferative diabetic retinopathy with macular edema, bilateral Type 2 diabetes mellitus without complications Home Medications aspirin 81 mg tablet,delayed release (Adult Low Dose Aspirin) 81 mg PO QDAY 08/19/17 [History Last Taken Unknown] atorvastatin 40 mg tablet 40 mg PO QHS 08/19/17 [History Last Taken Unknown] lisinopril 5 mg tablet 5 mg PO QDAY 30 days #30 tabs 08/19/17 [History Last Taken Unknown] nitroglycerin 0.4 mg sublingual tablet 0.4 mg sublingual Q5-15M PRN Pain 08/19/17 [History Last Taken Unknown] acetaminophen 325 mg capsule 650 mg PO Q8H PRN Pain 11/29/20 [History Last Taken Unknown] acetaminophen 500 mg tablet (Tylenol Extra Strength) 1,000 mg PO QHS 11/29/20 [History Last Taken Unknown] albuterol sulfate 90 mcg/actuation aerosol inhaler (ProAir HFA) 2 puff inhalation Q4H PRN shortness of breath or wheezing 11/29/20 [History Last Taken Unknown] calcium carbonate (Tums Ultra) 800 mg PO TID PRN Acid Reflux 11/29/20 [History Last Taken Unknown] cholecalciferol (vitamin D3) 125 mcg (5,000 unit) capsule 125 mcg PO DAILY 11/29/20 [History Last Taken Unknown] famotidine 20 mg tablet 20 mg PO BID 11/29/20 [History Last Taken Unknown] furosemide 40 mg tablet 40 mg PO BID 11/29/20 [History Last Taken Unknown] gabapentin 400 mg capsule 400 mg PO BID 11/29/20 [History Last Taken Unknown] insulin detemir U-100 100 unit/mL (3 mL) subcutaneous pen (Levemir FlexTouch U-100 Insulin) 25 unit subcut DAILY 11/29/20 [History Last Taken Unknown] insulin lispro 100 unit/mL subcutaneous solution (Humalog U-100 Insulin) See Rx Instructions subcut .COMPLEX 11/29/20 [History Last Taken Unknown] loperamide 2 mg capsule 2 mg PO Q12H PRN Diarrhea 11/29/20 [History Last Taken Unknown] loratadine 10 mg capsule 10 mg PO DAILY 11/29/20 [History Last Taken Unknown] lorazepam 0.5 mg tablet 0.5 mg PO QHS 11/29/20 [History Last Taken Unknown] multivitamin 1 tab PO DAILY 11/29/20 [History Last Taken Unknown] ondansetron HCl 4 mg tablet 4 mg PO Q6H 11/29/20 [History Last Taken Unknown] propranolol 60 mg capsule,24 hr,extended release 60 mg PO BID 11/29/20 [History Last Taken Unknown] psyllium husk 0.4 gram capsule (Metamucil) 0.4 g PO DAILY 11/29/20 [History Last Taken Unknown] vitamin B complex-folic acid 0.4 mg tablet (Super B Maxi Complex) 1 tab PO DAILY 11/29/20 [History Last Taken Unknown] insulin glargine 100 unit/mL (3 mL) subcutaneous pen (Lantus Solostar U-100 Insulin) 25 unit subcut LUNCH 11/30/20 [History Last Taken Unknown] primidone 50 mg tablet 50 mg PO QHS 11/30/20 [History Last Taken Unknown] hydrocodone-acetaminophen 5-325mg 5mg-325mg 1 tab PO Q6H 2 days #8 tabs 11/01/23 [Rx Last Taken Unknown] orphenadrine citrate 100 mg tablet,extended release 100 mg PO Q12H 5 days #10 tabs 11/01/23 [Rx Last Taken Unknown] Allergy/AdvReac Type Severity Reaction Status Date / Time Penicillins Allergy Unknown Unknown Verified 11/01/23 11:55 metoprolol AdvReac Mild Nausea Verified 11/01/23 11:55 Family History Grandfather CVA (cerebral vascular accident) Surgical History History of cataract surgery History of left heart catheterization (~08/18/16) History of thoracentesis (~08/2016) Social History Smoking Status: Former smoker Tobacco: How many years used: 40 how long ago did patient quit smoking: about 25 years ago Smoked about 2-3 paks a day alcohol intake: current alcohol intake frequency: holidays/special occasions only substance use type: does not use ROS Review of Systems ROS Unobtainable: Denies due to encephalopathy, due to endotracheal tube, due to mental condition, due to mental status or other Constitutional Constitutional: Reports change in weight, fatigue, malaise and weakness; Denies anorexia, chills, fever(s), night sweats or other Eyes Eyes: Denies blurry vision, change in eye color, change in vision, discharge from eye(s), double vision, erythema, eye pain, loss of vision or other ENT HEENT: Denies abnormal hearing, dysphagia, ear pain, epistaxis, headache(s), hearing loss, nasal congestion, nasal discharge, post nasal drip, sinus pressure, sore throat or other Cardiovascular Cardiovascular: Reports dyspnea on exertion, edema and orthopnea; Denies chest pain, claudication, lightheadedness, palpitations, paroxysmal nocturnal dyspnea, rapid heart rate, syncope or other Respiratory/Chest Respiratory/Chest: Reports cough and dyspnea Gastrointestinal Gastrointestinal: Denies abdominal pain, coffee ground emesis, constipation, diarrhea, dyspepsia, hematemesis, hematochezia, loose stools, melena, nausea, vomiting or other Genitourinary Genitourinary: Denies burning urination, difficulty urinating, dysuria, hematuria, nocturia, urinary frequency, urinary hesitancy, urinary incontinence, urinary urgency or other Musculoskeletal Musculoskeletal: Denies arthralgias, back pain, joint pain, joint stiffness, joint swelling, myalgias, neck pain or other Neurologic Neurologic: Denies abnormal gait, abnormal speech, confusion, disequilibrium, dizziness, focal weakness, headache(s), numbness, paresthesias, seizure-like activity, seizures, syncope, tingling, tremor(s) or other Psychiatric Psychiatric: Denies anxiety, depression, homicidal ideation, suicidal ideation or other Endocrine Endocrinology: Denies change in body appearance, cold intolerance, excessive sweating, heat intolerance, polydipsia, polyuria or other Hematologic/Lymphatic Hematologic/Lymphatic: Denies anemia, easy bleeding, easy bruising, lymphadenopathy or other Vital Signs Vital Signs Vital Signs: 11/01/23 11:54 11/01/23 13:54 11/01/23 15:19 Temperature 97.4 F L 97.9 F Temperature Source Temporal Oral Pulse Rate 71 74 64 Respiratory Rate 16 18 24 H Blood Pressure 156/63 H 150/62 H 152/52 H Blood Pressure Mean 94 91 85 Pulse Ox 93 95 80 Oxygen Delivery Method Room Air Room Air Oxygen Flow Rate (L/min) 11/01/23 15:20 Temperature Temperature Source Pulse Rate Respiratory Rate Blood Pressure Blood Pressure Mean Pulse Ox 91 Oxygen Delivery Method Nasal Cannula Oxygen Flow Rate (L/min) 2 Weight Weight: 159 lb 13.362 oz Body Mass Index (BMI) 25.7 Physical Exam Const alert, oriented x3 and average body habitus HEENT normocephalic Eyes PERRL and EOMs intact bilaterally Neck no lymphadenopathy Resp normal respiratory effort Resp Narrative: Faint bilateral crackles, adventitious sounds present Auscultation: crackles Cardio regular rate and regular rhythm GI normal to inspection, nondistended, normoactive bowel sounds Extremity Extremity Narrative: Bilateral pedal edema Neuro oriented x3 Results Medical Records Data Attestation: I reviewed the patient's medical records Lab / Micro Data Attestation: I reviewed the patient's lab results. 11/01/23 15:45 11/01/23 15:45 Labs: Laboratory Results - last 24 hr 11/01/23 15:07: Urine Color Yellow, Urine Clarity Clear, Urine pH 6.5, Ur Specific [place] 1.015, Urine Protein 100 H, Urine Glucose (UA) 100 H, Urine Ketones Negative, Urine Occult Blood 25 H, Urine Nitrite Negative, Urine Bilirubin Negative, Urine Urobilinogen 8 H, Ur Leukocyte Esterase Negative, Urine RBC 0-5 SEEN, Urine WBC 0 SEEN, Ur Squamous Epith Cells 0 SEEN, Urine Bacteria 0 SEEN, Urine Mucus 0 SEEN 11/01/23 15:45: WBC 9.5, RBC 4.21 L, Hgb 12.0 L, Hct 37.7 L, MCV 89.5, MCH 28.5, MCHC 31.8 L, RDW Std Deviation 46.6 H, RDW Coeff of Bebeto 14.5, Plt Count 217, MPV 11.6, Immature Gran % (Auto) 0.200, Neut % (Auto) 76.8 H, Lymph % (Auto) 12.5 L, [place] % (Auto) 8.5, Eos % (Auto) 1.4, Baso % (Auto) 0.6, Absolute Neuts (auto) 7.3, Absolute Lymphs (auto) 1.19, Nucleated RBC % 0, Sodium 142, Potassium 3.4 L, Chloride 102, Carbon Dioxide 38.0 H, Anion Gap 2 L, BUN 15, Creatinine 0.95, Estim Creat Clear Calc 57.83, Est GFR (MDRD) Af Amer 98, Est GFR (MDRD) Non-Af 81, BUN/Creatinine Ratio 15.7, Glucose 184 H, Calcium 8.9, Troponin I High Sens 40, B-Natriuretic Peptide 1102.6 H Imaging Radiology Impression Lumbar Spine X-Ray 11/01/23 12:15 IMPRESSION: No evidence of lumbar spinal fracture or spondylolisthesis. Electronically Signed: Vipul Garcia MD at 12:55 EDT , Chest X-Ray 11/01/23 15:50 IMPRESSION: Lower lobe atelectasis. Small lower lobe pleural effusions. Electronically Signed: James Amezcua MD at 16:14 EDT , Assessment & Plan Assessment/Plan (1) Hypoxia: PLAN: Plan 78-year-old man with history of coronary artery disease, HFrEF, type 2 diabetes, dyslipidemia, essential tremors presents to the ED for concerns regarding worsening shortness of breath. Based on his presentation, laboratory features he is presenting with ADHF likely due to dietary noncompliance versus natural history of disease. #ADHF on HFrEF: -Echocardiogram for further evaluation -IV furosemide 40 mg stat given in the ED -IV Lasix 40 mg twice daily -PT OT case management evaluation #Back pain continue Tylenol 650 mg every 8 hours #COPD continue albuterol 90 mcg every 4 as needed #Coronary artery disease: -Continue aspirin 81 mg daily -Atorvastatin 40 mg at bedtime #GERD: Continue home Pepcid 20 mg twice daily #Neuropathy: Gabapentin 400 mg twice daily #Type 2 diabetes: -Continue insulin glargine 25 units subacute as before for - Insulin as per sliding scale - HbA1c #Hypertension: -Lisinopril 5 mg daily #Insomnia: Lorazepam 0.5 mg at bedtime #Essential tremors:. -Primidone 50 mg at bedtime -Propranolol 60 mg twice daily #DVT: Moderate to high risk -Heparin 5000 unit every 12 for prophylaxis Charges/Coding Visit Charges Inpatient E&M: 71916 Init Hosp L2
[2023-11-01] MEDS: Furosemide 40 MG/4 ML Vial IV (17:26)
[2023-11-01] MEDS: Heparin Injection (Vial) 5,000 UNIT/ML VIAL 5000 UNIT SC (20:52)
[2023-11-01] MEDS: Atorvastatin Calcium 40 MG Tablet PO (20:52)
[2023-11-01] MEDS: Primidone 50 MG Tablet PO (20:52)
[2023-11-01] MEDS: Propranolol LA 60 MG Capsule PO (20:52)
[2023-11-01] MEDS: Famotidine 20 MG Tablet PO (20:53)
[2023-11-01] MEDS: 0.9% Saline Lock 10 ML Syringe IV (20:53)
[2023-11-01] MEDS: Insulin Lispro 100 UNIT/ML INSULN.PEN SC (21:03)
[2023-11-01] MEDS: Gabapentin 400 MG Capsule PO (21:04)
[2023-11-01] MEDS: Acetaminophen 325 MG Tablet 650 MG PO (21:04)
[2023-11-01 22:45] LABS: Bedside Glucose 238 mg/dL (74-106)
[2023-11-02] VITALS (11 sets, daily range): BP systolic 148–168; BP diastolic 60–69; PULSE 54–70; RESP 16–20; TEMP 36.4–37.3; O2SAT 84–98; BMI 25.2
[2023-11-02] MEDS: Insulin Lispro 100 UNIT/ML INSULN.PEN SC ×4 (02:26→21:11)
[2023-11-02 03:20] LABS: Bedside Glucose 250 mg/dL (74-106)
[2023-11-02 06:52] LABS: Bedside Glucose 157 mg/dL (74-106)
[2023-11-02 07:06] LABS: Absolute Lymphocyte Count 0.98 X10^3/uL (0.83-4.51); Absolute Neutrophil Count 5.6 X10^3/uL (2.0-7.7); Basophil# 0.06 X10^3/uL; Basophil% 0.8 % (0-1); Eosinophil# 0.19 X10^3/uL; Eosinophils% 2.5 % (0-5); Hemoglobin 11.3 g/dL (13.0-16.5); Lymphocyte # 0.98 X10^3/ul (0.83-4.51); Lymphocyte % 12.6 % (19-41); Mean Corp Hgb Conc 31.4 g/dL (32-36); Mean Corpuscular Hgb 28.5 pg (27.0-32.0); Mean Corpuscular Volume 90.7 fL (80-94); Mean Platelet Vol. 11.7 fl (6.2-12.0); Monocyte# 0.86 X10^3/uL; Monocyte% 11.1 % (0-10); NRBC Flagged by Analyzer 0 % (0-5); Neutrophil # 5.64 X10^3/uL (2.7-7.7); Neutrophil % 72.7 % (47-70); Platelet Count 202 K/mm3 (150-450); RBC Distribution Width CV 14.5 % (11.6-14.6); RBC Distribution Width SD 47.6 fl (35.1-43.9); Red Blood Count 3.97 M/mm3 (4.6-6.2); White Blood Count 7.8 K/mm3 (4.4-11.0)
[2023-11-02 07:19] LABS: International Normalized Ratio 1.3; Prothrombin Time (Protime)PT. 16.3 SECONDS (11.7-14.9)
--- NOTE | 2023-11-02 07:37 | ECHOD_ITS ---
Reason For Study: CHF Procedure This was a 2D Doppler, Color Flow transthoracic echocardiogram. Exam performed portable in patient room. Left Ventricle Normal LV size. The estimated ejection fraction is 50 %. Stage 2 diastolic dysfunction. hypokinetic apex. Right Ventricle Normal RV size. Normal systolic function. Atria The left atrium is mildly enlarged. Normal right atrium. No doppler evidence for ASD. Mitral Valve There is no mitral valve stenosis. Trivial mitral valve insufficiency. Tricuspid Valve There is no tricuspid stenosis. Trivial tricuspid valve insufficiency. Unable to estimate RV systolic pressure due to insufficient tricuspid regurgitant envelope. Aortic Valve Trisinus/trileaflet aortic valve. There is no aortic stenosis. Mild (1+) aortic valve insufficiency. Pulmonic Valve There is no pulmonic valvular stenosis. No pulmonic valve insufficiency. Great Vessels Normal aortic root. Pericardium/Pleural No pericardial effusion. MMode/2D Measurements & Calculations LVIDd: 4.8 cm IVSd: 0.95 cm LA dimension: 4.3 cm LVIDs: 4.0 cm LVPWd: 0.87 cm RVDd: 4.1 cm FS: 16.6 % LAV(MOD-bp): 64.3 ml LA A4 area: 21.1 cm2 RA A4 area: 20.4 cm2 LAV(MOD-bp) Indexed: 35.4 ml/m2 LAV(MOD-sp2): 62.8 ml LAV(MOD-sp4): 63.0 ml TAPSE: 2.1 cm Time Measurements MV dec time: 0.20 sec Doppler Measurements & Calculations MV E max tommy: 124.9 cm/sec Lat Peak E' Tommy: 4.5 cm/sec Med Peak E' Tommy: 5.9 cm/sec MV A max tommy: 68.4 cm/sec E/E' lat: 27.9 E/E' med: 21.2 MV E/A: 1.8 MV V2 max: 153.8 cm/sec MV P1/2t max tommy: 154.2 cm/sec Ao V2 max: 163.4 cm/sec MV max P.5 mmHg MV P1/2t: 71.8 msec Ao max P.7 mmHg MV V2 mean: 62.9 cm/sec MV mean P.1 mmHg MV dec slope: 628.8 cm/sec2 MV V2 VTI: 42.5 cm MVA(P1/2t): 3.1 cm2 AI max tommy: 414.2 cm/sec LV V1 max: 88.3 cm/sec PA V2 max: 67.1 cm/sec AI max P.6 mmHg LV V1 max P.2 mmHg LV V1 mean P.8 mmHg AI dec slope: 271.0 cm/sec2 LV V1 mean: 61.7 cm/sec AI P1/2t: 447.7 msec LV V1 VTI: 22.9 cm TR max tommy: 291.0 cm/sec TR max P.9 mmHg ECHO/Echo Complete Interpretation Summary The estimated ejection fraction is 50 %. hypokinetic apex Stage 2 diastolic dysfunction. The left atrium is mildly enlarged. Trivial mitral valve insufficiency. Mild (1+) aortic valve insufficiency. Ordering Physician: Zabrina Yanez Performed By: Roman Randle RCS
[2023-11-02 07:51] LABS: ALB/GLOB Ratio 0.7 RATIO (0.9-2.4); AST(SGOT) 22 U/L (15-37); Alanine Aminotransfer ALT/SGPT 17 U/L (16-61); Albumin, Serum 2.8 g/dL (3.2-5.0); Alkaline Phosphatase 81 U/L (45-117); Anion Gap 4 (5-15); BUN 11 mg/dL (7-18); BUN/Creat Ratio 12.1 RATIO (10-20); Bilirubin, Direct 0.39 mg/dL (0.00-0.30); Calcium,Total 8.3 mg/dL (8.5-10.1); Chloride 102 mmol/L (98-107); Creatinine, Serum 0.91 mg/dL (0.70-1.30); EST Glomerular Filtration Rate 85 mL/min (>60); Est Glom Filt Rate - Afr Amer 103 mL/min (>60); Estimated Creatinine Clearance 60.37 ml/min; Globulin 3.9 g/dL (2.2-4.2); Glucose 146 mg/dL (74-106); Phosphorus 2.7 mg/dL (2.5-4.9); Potassium 2.6 mmol/L (3.5-5.1); Protein, Total 6.7 g/dL (6.4-8.2); Sodium Level 141 mmol/L (136-145); Thyroid Stim Hormone (TSH) 0.69 uIU/mL (0.358-3.74)
--- NOTE | 2023-11-02 08:12 | EKG12_ITS ---
Test Reason : CP Blood Pressure : / mmHG Vent. Rate : 062 BPM Atrial Rate : 062 BPM P-R Int : 196 ms QRS Dur : 104 ms QT Int : 436 ms P-R-T Axes : 067 057 107 degrees QTc Int : 442 ms Normal sinus rhythm Low voltage QRS Possible Inferior infarct , age undetermined Abnormal ECG When compared with ECG of 06-FEB-2023 18:22, Nonspecific T wave abnormality no longer evident in Inferior leads Confirmed by SUZIE SALAS, ELVIS ([id number]), telegraph editor GINNY COMER ([id number]) on 11/09/2023 1:07:59 PM Referred By: Confirmed By:MADISON LARSEN MD
[2023-11-02] MEDS: Potassium Chloride Oral Tablet 20 MEQ 60 MEQ PO (08:51)
[2023-11-02] MEDS: Aspirin E.C. 81 MG Tablet PO (08:51)
[2023-11-02] MEDS: Spironolactone 25 MG Tablet PO (08:52)
[2023-11-02] MEDS: Heparin Injection (Vial) 5,000 UNIT/ML VIAL 5000 UNIT SC ×2 (08:53→21:00)
[2023-11-02] MEDS: Lisinopril 5 MG Tablet PO (08:53)
[2023-11-02] MEDS: Citalopram 20 MG Tablet PO (08:54)
[2023-11-02] MEDS: Propranolol LA 80 MG Capsule PO ×2 (08:54→21:01)
[2023-11-02] MEDS: Famotidine 20 MG Tablet PO (08:54)
[2023-11-02] MEDS: Potassium Chloride Oral Tablet 20 MEQ 40 MEQ PO ×2 (09:02→21:01)
--- NOTE | 2023-11-02 10:34 | CASEMGMT ---
[facility] updates to [facility]. Marnie Nicholas TANK BOTTOM ASSEMBLERYamilka SUÁREZ
[2023-11-02] MEDS: Insulin Glargine-YFGN 100 UNIT/ML Pen 25 UNIT SC (11:41)
[2023-11-02 12:00] LABS: Bedside Glucose 129 mg/dL (74-106)
[2023-11-02] MEDS: HYDROcodone Bitartrate/Apap 5/325 Tablet PO ×2 (13:04→21:28)
[2023-11-02] MEDS: Furosemide 20 MG/2 ML VIAL IV ×2 (13:04→21:55)
[2023-11-02] MEDS: 0.9% Saline Lock 10 ML Syringe IV ×3 (13:04→21:55)
[2023-11-02] MEDS: Glycerin/Hypromellose/PEG400 15 ml Bottle 1 DRP EACH EYE ×2 (16:20→21:00)
--- NOTE | 2023-11-02 16:34 | PCM.PN.HOSP ---
Reason for Visit Reason for Visit: Diagnoses Dorsalgia, unspecified (11/01/23) Hypoxemia (11/01/23) Subjective Subjective Patient was seen and examined today, I talked briefly with his son by phone, patient lives in assisted living but the son is concerned he is not receiving of care there, however, he states his father makes his own decisions where the lymph. Patient's echocardiogram today showed a normal ejection fraction, patient remains on IV Lasix at this time Objective Data Objective Data Vital Signs: Vital Signs Temp Pulse Resp BP Pulse Ox O2 Del Method O2 Flow Rate 97.5 F L 54 L 16 152/60 H 96 Room Air 2.5 11/02/23 16:15 11/02/23 16:15 11/02/23 16:15 11/02/23 16:15 11/02/23 16:15 11/02/23 16:15 11/02/23 14:04 Oxygen Flow Rate (L/min) 2.5 Oxygen Delivery Method Room Air Weight: 71 kg Body Mass Index (BMI) 25.2 Intake & Output: Intake and Output for Last 24 Hours 10/31/23 11/01/23 11/02/23 23:59 23:59 23:59 Intake Total 200 / 200 700 / 700 Output Total 750 / 750 750 / 750 Balance -550 / -550 -50 / -50 Lab / Micro Data 11/02/23 06:42 11/02/23 06:42 Labs: Laboratory Results - last 24 hr 11/01/23 20:58: POC Glucose 238 H 11/02/23 02:24: POC Glucose 250 H 11/02/23 06:15: POC Glucose 157 H 11/02/23 06:42: WBC 7.8, RBC 3.97 L, Hgb 11.3 L, Hct 36.0 L, MCV 90.7, MCH 28.5, MCHC 31.4 L, RDW Std Deviation 47.6 H, RDW Coeff of Bebeto 14.5, Plt Count 202, MPV 11.7, Immature Gran % (Auto) 0.300, Neut % (Auto) 72.7 H, Lymph % (Auto) 12.6 L, [place] % (Auto) 11.1 H, Eos % (Auto) 2.5, Baso % (Auto) 0.8, Absolute Neuts (auto) 5.6, Absolute Lymphs (auto) 0.98, Nucleated RBC % 0, PT 16.3 H, INR 1.3, Sodium 141, Potassium 2.6 L*, Chloride 102, Carbon Dioxide 35.0 H, Anion Gap 4 L, BUN 11, Creatinine 0.91, Estim Creat Clear Calc 60.37, Est GFR (MDRD) Af Amer 103, Est GFR (MDRD) Non-Af 85, BUN/Creatinine Ratio 12.1, Glucose 146 H, Calcium 8.3 L, Phosphorus 2.7, Magnesium 2.0, Total Bilirubin 1.30 H, Direct Bilirubin 0.39 H, AST 22, ALT 17, Alkaline Phosphatase 81, Total Protein 6.7, Albumin 2.8 L, Globulin 3.9, Albumin/Globulin Ratio 0.7 L, TSH 0.69 11/02/23 11:39: POC Glucose 129 H Radiography Diagnostic Testing: Radiology Impression Echocardiogram 11/02/23 07:37 Interpretation Summary The estimated ejection fraction is 50 %. hypokinetic apex Stage 2 diastolic dysfunction. The left atrium is mildly enlarged. Trivial mitral valve insufficiency. Mild (1+) aortic valve insufficiency. Ordering Physician: Zabrina Yanez Performed By: Roman Randle RCS Physical Exam Const alert, oriented x3, no apparent distress and healthy appearing Constitutional Narrative: Patient has intentional tremor General Appearance: cooperative, well kempt and well developed Orientation / Consciousness: awake, oriented to person, oriented to place and oriented to time HEENT normocephalic and moist oral mucous membranes Eyes PERRL, EOMs intact bilaterally and conjunctivae normal Neck supple, no JVD, thyroid normal and no carotid bruits General: trachea midline Resp normal respiratory effort and clear to auscultation bilaterally Auscultation: Negative for rales, rhonchi or wheezes Cardio regular rate, regular rhythm, S1 normal heart sound, S2 normal heart sound, no murmurs, no rub and no gallops GI normal to inspection, nondistended, normoactive bowel sounds, soft to palpation, non-tender and non-distended Extremity no clubbing, cyanosis or edema Skin no rashes or lesions noted General Skin Exam: no breakdown Neuro oriented x3, CN's II-XII intact bilaterally, no focal motor deficits and no sensory deficits noted Neuro Narrative: Patient has an intentional tremor, patient's speech vacillates due to his tremor Sensorium / Orientation: awake and alert Psych affect normal Assessment & Plan Assessment/Plan (1) Acute exacerbation of CHF (congestive heart failure): PLAN: Plan 1. Acute on chronic diastolic congestive heart failure-patient will remain on IV Lasix, labs will be monitored #2 hypoxia secondary to #1-patient's pulse ox will be monitored, oxygen will be titrated if possible #3 low back pain secondary to osteoarthritis-patient was placed on [place] for back pain #4 type 2 diabetes-patient's blood sugar will be monitored, sliding scale insulin will be given as needed, patient is on basal insulin #5 essential hypertension-continue present medications #6 essential tremor-complicates care, management, recovery, and prognosis, patient is on propranolol and primidone #7 chronic obstructive pulmonary disease-continue aerosol treatments Total clinical time spent by myself addressing the patient's medical issues, reviewing all of his data, and collaborating with patient's care team: 35 minutes Charges/Coding Visit Charges Inpatient E&M: 33021 Subs Hosp L2
[2023-11-02 18:57] LABS: Bedside Glucose 179 mg/dL (74-106)
[2023-11-02] MEDS: Atorvastatin Calcium 40 MG Tablet PO (21:01)
[2023-11-02] MEDS: Gabapentin 400 MG Capsule PO (21:07)
[2023-11-03 01:22] LABS: Bedside Glucose 206 mg/dL (74-106)
[2023-11-03 02:50] VITALS: BP 126/54; PULSE 60; RESP 18; TEMP 36.7; O2SAT 94
[2023-11-03 03:17] VITALS: BMI 25.4
[2023-11-03] MEDS: Glycerin/Hypromellose/PEG400 15 ml Bottle 1 DRP EACH EYE ×3 (06:06→21:59)
[2023-11-03] MEDS: HYDROcodone Bitartrate/Apap 5/325 Tablet PO ×2 (06:07→20:33)
[2023-11-03 06:09] VITALS: BP 144/65; PULSE 64; RESP 18; TEMP 36.6; O2SAT 94
[2023-11-03] MEDS: Furosemide 20 MG/2 ML VIAL IV ×3 (06:18→22:55)
[2023-11-03] MEDS: 0.9% Saline Lock 10 ML Syringe IV ×2 (06:18→15:12)
[2023-11-03 07:08] LABS: Bedside Glucose 92 mg/dL (74-106)
[2023-11-03 07:09] LABS: Bedside Glucose 82 mg/dL (74-106)
[2023-11-03 07:40] VITALS: BP 144/65; PULSE 64; RESP 18; TEMP 36.6; O2SAT 94
[2023-11-03 08:35] LABS: Anion Gap 3 (5-15); BUN 16 mg/dL (7-18); Calcium,Total 8.9 mg/dL (8.5-10.1); Chloride 104 mmol/L (98-107); Creatinine, Serum 1.07 mg/dL (0.70-1.30); EST Glomerular Filtration Rate 71 mL/min (>60); Est Glom Filt Rate - Afr Amer 86 mL/min (>60); Estimated Creatinine Clearance 51.34 ml/min; Glucose 100 mg/dL (74-106); Potassium 3.9 mmol/L (3.5-5.1); Sodium Level 141 mmol/L (136-145)
[2023-11-03 08:51] VITALS: O2SAT 95
--- NOTE | 2023-11-03 09:20 | CASEMGMT ---
Addendum entered by Marnie Nicholas 11/03/23 10:15: SILVA also sent PT/OT to [facility] via fax. Marnie SUÁREZ Original Note: SILVA called patient's daughter Risa and left her a voice mail requesting a return call regarding discharge planning. Marnie SUÁREZ
[2023-11-03] MEDS: Citalopram 20 MG Tablet PO (10:18)
[2023-11-03] MEDS: Spironolactone 25 MG Tablet PO (10:18)
[2023-11-03] MEDS: Aspirin E.C. 81 MG Tablet PO (10:18)
[2023-11-03] MEDS: Heparin Injection (Vial) 5,000 UNIT/ML VIAL 5000 UNIT SC ×2 (10:19→21:59)
[2023-11-03] MEDS: Potassium Chloride Oral Tablet 20 MEQ 40 MEQ PO ×2 (10:19→22:00)
[2023-11-03] MEDS: Famotidine 20 MG Tablet PO (10:20)
[2023-11-03] MEDS: Propranolol LA 80 MG Capsule PO ×2 (10:20→22:00)
[2023-11-03] MEDS: Lisinopril 5 MG Tablet PO (10:20)
--- NOTE | 2023-11-03 11:27 | CASEMGMT ---
[facility]VA let Angelina know that patient will likely go to a [facility] facility at discharge, but SILVA is waiting on a return call from patient's daughter. Angelina said patient will likely refuse. Marnie SUÁREZ
[2023-11-03 11:42] LABS: Bedside Glucose 136 mg/dL (74-106)
[2023-11-03 12:00] VITALS: BP 143/61; PULSE 55; RESP 18; TEMP 36.4; O2SAT 94
[2023-11-03] MEDS: Insulin Glargine-YFGN 100 UNIT/ML Pen 25 UNIT SC (12:29)
--- NOTE | 2023-11-03 13:03 | CASEMGMT ---
Physician spoke with patient and patient's daughter were both agreeable for patient to go to a care home facility. Patient's daughter's first choice would be [facility]. SW sent a referral to [facility] via [facility]. Marnie SUÁREZ
--- NOTE | 2023-11-03 14:52 | CASEMGMT ---
SW met with patient. Introduced self and role at [facility]. SW spoke with patient about going somewhere for rehab at discharge. Patient was agreeable. Facilities were discussed and SW told patient where his daughter would like. Patient said he would like to go to TCU. SILVA told patient SW can check to see if TCU can take him. SILVA called patient's daughter and left her a voice mail letting her know that patient is interested in [facility]CU and if they cannot take him then he would like [facility]. SILVA let her know she can call SILVA if she is not okay with this plan. SILVA made a referral to TCU and they can take patient. SILVA canceled referral with [facility] and asked that they cancel pre-cert request. SILVA notified patient. Plan: [facility] pending insurance approval. Marnie SUÁREZ
--- NOTE | 2023-11-03 16:10 | CHAPLAIN ---
Type of Pastoral Visit _x__ Initial Visit ___ Follow-up Visit ___ On-call Visit ___ General Patient Visit ___ Spiritual Assessment ___ Family Conference ___ Bereavement ___ Rapid Response ___ Code Blue ___ Other (describe below) Pastoral Care Referral From _x__ Patient ___ Family ___ Nurse ___ Physician ___ Ornamental Machine Operator ___ Glost Kiln Operator ___ Other (describe below) Sacrament/Intervention _x__ Active listening ___ Anointing ___ Protestant ___ Bereavement ___ Communion _x__ Meghan exploration ___ _x__ Life review _x__ Prayer ___ Reconciliation ___ Sacrament of Sick ___ Supportive presence ___ Wedding ___ Other (describe below) Pastoral Comments patient is welcoming and very talkative; pt gives lots of life review; pt expresses his meghan in God and that he is ready to go to [facility]; pt speaks of passing and other family members that are already in [facility]; pt has a large number of grandchildren and great grandchildren of which he is fond and giving his attention as best he can in his condition; pt is very limited in physical abilities but presents with a good and grateful attitude; pt welcomes prayer and welcomes future visit when he goes to the rehab unit
[2023-11-03 18:01] LABS: Bedside Glucose 107 mg/dL (74-106)
--- NOTE | 2023-11-03 19:41 | PCM.PN.HOSP ---
Reason for Visit Reason for Visit: Diagnoses Heart failure, unspecified (11/01/23) Dorsalgia, unspecified (11/01/23) Hypoxemia (11/01/23) Subjective Subjective Patient was seen and examined today, he remains on 3 L of oxygen via nasal cannula. Physical therapy is recommending the patient go to an extended care facility for short-term rehab services, I talked with the patient's daughter and she was relieved that this was the recommendation, patient also agreed that he should go to a senior living facility if is necessary. We will try to get the patient into [place] if possible. Objective Data Objective Data Vital Signs: Vital Signs Temp Pulse Resp BP Pulse Ox O2 Del Method O2 Flow Rate 97.6 F L 55 L 18 143/61 H 94 Nasal Cannula 3 11/03/23 12:00 11/03/23 12:00 11/03/23 12:00 11/03/23 12:00 11/03/23 12:00 11/03/23 18:00 11/03/23 18:00 Oxygen Flow Rate (L/min) 3 Oxygen Delivery Method Nasal Cannula Weight: 71.4 kg Body Mass Index (BMI) 25.4 Intake & Output: Intake and Output for Last 24 Hours 11/01/23 11/02/23 11/03/23 23:59 23:59 23:59 Intake Total 200 / 200 1220 / 1420 400 / 400 Output Total 750 / 750 1400 / 1800 1300 / 1300 Balance -550 / -550 -180 / -380 -900 / -900 Lab / Micro Data 11/02/23 06:42 11/03/23 07:41 Labs: Laboratory Results - last 24 hr 11/02/23 21:11: POC Glucose 206 H 11/03/23 02:44: POC Glucose 82 11/03/23 06:04: POC Glucose 92 11/03/23 07:41: Sodium 141, Potassium 3.9, Chloride 104, Carbon Dioxide 34.0 H, Anion Gap 3 L, BUN 16, Creatinine 1.07, Estim Creat Clear Calc 51.34, Est GFR (MDRD) Af Amer 86, Est GFR (MDRD) Non-Af 71, BUN/Creatinine Ratio 15.0, Glucose 100, Calcium 8.9 11/03/23 11:24: POC Glucose 136 H 11/03/23 17:43: POC Glucose 107 H Physical Exam Narrative alert, oriented x3, no apparent distress and healthy appearing Constitutional Narrative: Patient has intentional tremor General Appearance: cooperative, well kempt and well developed Orientation / Consciousness: awake, oriented to person, oriented to place and oriented to time HEENT normocephalic and moist oral mucous membranes Eyes PERRL, EOMs intact bilaterally and conjunctivae normal Neck supple, no JVD, thyroid normal and no carotid bruits General: trachea midline Resp normal respiratory effort and clear to auscultation bilaterally Auscultation: Negative for rales, rhonchi or wheezes Cardio regular rate, regular rhythm, S1 normal heart sound, S2 normal heart sound, no murmurs, no rub and no gallops GI normal to inspection, nondistended, normoactive bowel sounds, soft to palpation, non-tender and non-distended Extremity no clubbing, cyanosis or edema Skin no rashes or lesions noted General Skin Exam: no breakdown Neuro oriented x3, CN's II-XII intact bilaterally, no focal motor deficits and no sensory deficits noted Neuro Narrative: Patient has an intentional tremor, patient's speech vacillates due to his tremor Sensorium / Orientation: awake and alert Psych affect normal Assessment & Plan Assessment/Plan (1) Acute exacerbation of CHF (congestive heart failure): PLAN: Plan 1. Acute on chronic diastolic congestive heart failure-patient will remain on IV Lasix, labs will be monitored #2 hypoxia secondary to #1-patient's pulse ox will be monitored, oxygen will be titrated if possible #3 low back pain secondary to osteoarthritis-patient was placed on [place] for back pain #4 type 2 diabetes-patient's blood sugar will be monitored, sliding scale insulin will be given as needed, patient is on basal insulin #5 essential hypertension-continue present medications #6 essential tremor-complicates care, management, recovery, and prognosis, patient is on propranolol and primidone, I talked with the patient's daughter concerning this tremor, he has seen a neurologist in the past and they are fairly certain that it is not Parkinson's disease. #7 chronic obstructive pulmonary disease-continue aerosol treatments #8 acute debility to age and multiple medical problems including tremor-PT and OT will continue to see the patient, he will need at least short-term placement in a senior living facility Total clinical time spent by myself addressing the patient's medical issues, reviewing all of his data, and collaborating with patient's care team: 35 minutes Charges/Coding Visit Charges Inpatient E&M: 97098 Subs Hosp L2
[2023-11-03] MEDS: Atorvastatin Calcium 40 MG Tablet PO (21:59)
[2023-11-03] MEDS: Gabapentin 400 MG Capsule PO (22:06)
[2023-11-03 22:07] VITALS: BP 150/57; PULSE 59; RESP 18; TEMP 36.6; O2SAT 96
[2023-11-03 23:15] LABS: Bedside Glucose 110 mg/dL (74-106)
[2023-11-04 05:59] LABS: Bedside Glucose 122 mg/dL (74-106)
[2023-11-04 05:59] LABS: Bedside Glucose 64 mg/dL (74-106)
[2023-11-04 05:59] LABS: Bedside Glucose 65 mg/dL (74-106)
[2023-11-04 06:00] VITALS: BMI 25.9
[2023-11-04] MEDS: HYDROcodone Bitartrate/Apap 5/325 Tablet PO (06:04)
[2023-11-04 06:59] LABS: Bedside Glucose 131 mg/dL (74-106)
[2023-11-04 07:44] VITALS: O2SAT 95
[2023-11-04 07:46] LABS: Anion Gap 3 (5-15); BUN 25 mg/dL (7-18); BUN/Creat Ratio 22.1 RATIO (10-20); Calcium,Total 9.4 mg/dL (8.5-10.1); Chloride 103 mmol/L (98-107); Creatinine, Serum 1.13 mg/dL (0.70-1.30); EST Glomerular Filtration Rate 67 mL/min (>60); Est Glom Filt Rate - Afr Amer 81 mL/min (>60); Estimated Creatinine Clearance 48.62 ml/min; Glucose 119 mg/dL (74-106); Potassium 4.1 mmol/L (3.5-5.1); Sodium Level 139 mmol/L (136-145)
[2023-11-04 09:40] VITALS: BP 120/73; PULSE 71; RESP 18; TEMP 36.2; O2SAT 99
[2023-11-04] MEDS: Spironolactone 25 MG Tablet PO (09:59)
[2023-11-04] MEDS: Heparin Injection (Vial) 5,000 UNIT/ML VIAL 5000 UNIT SC ×2 (09:59→21:06)
[2023-11-04] MEDS: Famotidine 20 MG Tablet PO (10:02)
[2023-11-04] MEDS: Lisinopril 5 MG Tablet PO (10:02)
[2023-11-04] MEDS: Citalopram 20 MG Tablet PO (10:02)
[2023-11-04] MEDS: Aspirin E.C. 81 MG Tablet PO (10:02)
[2023-11-04] MEDS: Potassium Chloride Oral Tablet 20 MEQ 40 MEQ PO ×2 (10:03→21:07)
[2023-11-04] MEDS: Propranolol LA 80 MG Capsule PO ×2 (10:03→21:30)
--- NOTE | 2023-11-04 11:58 | MRI_ITS ---
INDICATION: Low back pain, radiculopathy EXAMINATION: MRI - MR Spine Lumbar W/O Contrast TECHNIQUE: Multiplanar and multisequence MR images of the lumbar spine without contrast. IV Contrast Dosage and Agent: None. COMPARISON: November 01, 2023 Lumbar Spine radiograph. FINDINGS: VERTEBRAE: Normal general bone marrow signal. No fracture or acute compression deformity. Acute on chronic endplate degenerative change at posterior inferior L3. . Normal lumbar spine alignment. CORD: Conus medullaris at T12. Imaged portion of the cord is normal in signal. Cauda equina layer dependently. L1/L2: Normal disc height and morphology. Normal spinal canal, lateral recesses and neuroforamina. L2/L3: Small bilateral subarticular to lateral disc bulge without significant spinal stenosis or lateral recess narrowing. Mild left neural foraminal stenosis. L3-L4: Disc height loss and desiccation with small circumferential disc bulge, together with ligamentum flavum hypertrophy causing mild spinal canal narrowing, mild bilateral lateral recess narrowing, mild bilateral neural foraminal stenosis. L4/L5: Disc desiccation with small circumferential disc bulge causing minimal spinal canal narrowing, mild bilateral lateral recess narrowing, mild bilateral neural foraminal stenosis. L5/S1: Normal disc height and morphology. Normal spinal canal, lateral recesses and neuroforamina. SOFT TISSUES: Unremarkable. MRI/Spine Lumbar (Routine) IMPRESSION: Mild mid lumbar spondylosis most prominent L3-4 image with mild spinal canal narrowing, mild lateral recess narrowing, mild bilateral foraminal stenosis Electronically Signed: Curt Bragg MD at 18:58 EDT Reading Location ID and State: [facility] / [place] Tel , Service support ,
[2023-11-04 12:19] LABS: Bedside Glucose 151 mg/dL (74-106)
[2023-11-04] MEDS: Insulin Glargine-YFGN 100 UNIT/ML Pen 25 UNIT SC (15:13)
[2023-11-04] MEDS: Furosemide 20 MG/2 ML VIAL IV ×2 (15:13→21:07)
[2023-11-04] MEDS: Glycerin/Hypromellose/PEG400 15 ml Bottle 1 DRP EACH EYE ×2 (15:13→21:06)
[2023-11-04] MEDS: Insulin Lispro 100 UNIT/ML INSULN.PEN SC (15:14)
[2023-11-04] MEDS: 0.9% Saline Lock 10 ML Syringe IV ×2 (15:15→21:18)
[2023-11-04 15:40] VITALS: BP 143/58; PULSE 53; RESP 18; TEMP 36.4; O2SAT 95
[2023-11-04 18:05] LABS: Bedside Glucose 106 mg/dL (74-106)
--- NOTE | 2023-11-04 19:08 | PN.HOSP_ITS ---
Reason for Visit Reason for Visit: Diagnoses Heart failure, unspecified (11/01/23) Dorsalgia, unspecified (11/01/23) Hypoxemia (11/01/23) Subjective Subjective Patient was seen and examined today, due to his ongoing complaints of low back pain and pain in his legs I have elected to do an MRI of his lumbar spine, MRI of the lumbar spine did not show significant spinal stenosis but showed degenerative changes. Patient remains on oral narcotics for pain at the present time, we are awaiting approval for the patient to go to an extended care [facility] for further care Objective Data Objective Data Vital Signs: Vital Signs Temp Pulse Resp BP Pulse Ox O2 Del Method O2 Flow Rate 97.5 F L 53 L 18 143/58 H 95 Nasal Cannula 3 11/04/23 15:40 11/04/23 15:40 11/04/23 15:40 11/04/23 15:40 11/04/23 15:40 11/04/23 16:19 11/04/23 16:19 Oxygen Flow Rate (L/min) 3 Oxygen Delivery Method Nasal Cannula Weight: 72.8 kg Body Mass Index (BMI) 25.9 Intake & Output: Intake and Output for Last 24 Hours 11/02/23 11/03/23 11/04/23 23:59 23:59 23:59 Intake Total 1220 / 1420 400 / 800 880 / 880 Output Total 1400 / 1800 1300 / 2000 2500 / 2500 Balance -180 / -380 -900 / -1200 -1620 / -1620 Lab / Micro Data 11/02/23 06:42 11/04/23 06:25 Labs: Laboratory Results - last 24 hr 11/03/23 21:57: POC Glucose 110 H 11/04/23 02:45: POC Glucose 65 L 11/04/23 03:26: POC Glucose 64 L 11/04/23 04:01: POC Glucose 122 H 11/04/23 06:05: POC Glucose 131 H 11/04/23 06:25: Sodium 139, Potassium 4.1, Chloride 103, Carbon Dioxide 33.0 H, Anion Gap 3 L, BUN 25 H, Creatinine 1.13, Estim Creat Clear Calc 48.62, Est GFR (MDRD) Af Amer 81, Est GFR (MDRD) Non-Af 67, BUN/Creatinine Ratio 22.1 H, Glucose 119 H, Calcium 9.4 04/24/24 12:00: POC Glucose 151 H 11/04/23 17:37: POC Glucose 106 Radiography Diagnostic Testing: Radiology Impression Lumbar Spine MRI 11/04/23 11:58 IMPRESSION: Mild mid lumbar spondylosis most prominent L3-4 image with mild spinal canal narrowing, mild lateral recess narrowing, mild bilateral foraminal stenosis Electronically Signed: Curt Bragg MD at 18:58 EDT , Physical Exam Narrative alert, oriented x3, no apparent distress and healthy appearing Constitutional Narrative: Patient has intentional tremor General Appearance: cooperative, well kempt and well developed Orientation / Consciousness: awake, oriented to person, oriented to place and oriented to time HEENT normocephalic and moist oral mucous membranes Eyes PERRL, EOMs intact bilaterally and conjunctivae normal Neck supple, no JVD, thyroid normal and no carotid bruits General: trachea midline Resp normal respiratory effort and clear to auscultation bilaterally Auscultation: Negative for rales, rhonchi or wheezes Cardio regular rate, regular rhythm, S1 normal heart sound, S2 normal heart sound, no murmurs, no rub and no gallops GI normal to inspection, nondistended, normoactive bowel sounds, soft to palpation, non-tender and non-distended Extremity no clubbing, cyanosis or edema Skin no rashes or lesions noted General Skin Exam: no breakdown Neuro oriented x3, CN's II-XII intact bilaterally, no focal motor deficits and no sensory deficits noted Neuro Narrative: Patient has an intentional tremor, patient's speech vacillates due to his tremor Sensorium / Orientation: awake and alert Psych affect normal Assessment & Plan Assessment/Plan (1) Hypoxia: (2) Acute exacerbation of CHF (congestive heart failure): PLAN: Plan 1. Acute on chronic diastolic congestive heart failure-patient will remain on IV Lasix, labs will be monitored #2 hypoxia secondary to #1-patient's pulse ox will be monitored, oxygen will be titrated if possible, patient is currently on 3 L/min via nasal cannula #3 low back pain secondary to osteoarthritis-patient will continue to take [place] for back pain as needed #4 type 2 diabetes-patient's blood sugar will be monitored, sliding scale insulin will be given as needed, patient is on basal insulin #5 essential hypertension-continue present medications #6 essential tremor-complicates care, management, recovery, and prognosis, patient is on propranolol and primidone, I talked with the patient's daughter concerning this tremor, he has seen a neurologist in the past and they are fairly certain that it is not Parkinson's disease. #7 chronic obstructive pulmonary disease-continue aerosol treatments #8 acute debility to age and multiple medical problems including tremor-PT and OT will continue to see the patient, he will need at least short-term placement in a retirement facility Total clinical time spent by myself addressing the patient's medical issues, reviewing all of his data, and collaborating with patient's care team: 35 minutes Charges/Coding Visit Charges Inpatient E&M: [id number] Subs Hosp L2
[2023-11-04 21:00] VITALS: BP 164/62; PULSE 58; RESP 16; TEMP 36.5; O2SAT 97
[2023-11-04] MEDS: Gabapentin 400 MG Capsule PO (21:02)
[2023-11-04] MEDS: Atorvastatin Calcium 40 MG Tablet PO (21:07)
[2023-11-04] MEDS: Acetaminophen 325 MG Tablet 650 MG PO (21:12)
[2023-11-04 21:31] VITALS: PULSE 67
[2023-11-04 22:58] LABS: Bedside Glucose 113 mg/dL (74-106)
[2023-11-05 00:30] LABS: Bedside Glucose 61 mg/dL (74-106)
--- NOTE | 2023-11-05 00:31 | NURSING ---
Pt called out states he felt like his blood sugar was low, staff checked it result was 61. Juice and snacks given level improved to 82.
[2023-11-05 00:38] LABS: Bedside Glucose 82 mg/dL (74-106)
--- NOTE | 2023-11-05 00:50 | PCM.HOSP.N ---
Hospitalist Note Per nursing staff, blood sugar of 61 around 23:50 on 11/03. Given juice and snacks with improvement to 82 about 20 minutes later. Appears that patient has similar episode yesterday evening as well. Home diabetes regimen of Lantus 40 units with lunch and Humalog sliding scale with meals. Has been on dose-reduced Lantus at 25 units at lunch plus Humalog sliding scale insulin, unclear on why sugars continue to drop low. Will further decrease to Lantus 15 units at lunch.
[2023-11-05 02:23] LABS: Bedside Glucose 173 mg/dL (74-106)
[2023-11-05 03:29] VITALS: BMI 25.3
[2023-11-05 03:35] VITALS: BP 142/50; PULSE 55; RESP 14; TEMP 36.3; O2SAT 93
[2023-11-05] MEDS: Furosemide 20 MG/2 ML VIAL IV ×2 (05:14→14:17)
[2023-11-05] MEDS: Glycerin/Hypromellose/PEG400 15 ml Bottle 1 DRP EACH EYE ×2 (05:14→14:15)
[2023-11-05] MEDS: 0.9% Saline Lock 10 ML Syringe IV ×2 (05:16→10:12)
[2023-11-05 06:48] LABS: Bedside Glucose 136 mg/dL (74-106)
[2023-11-05] MEDS: Lactulose 20 GM/30 ML UDC 30 GM PO (07:00)
[2023-11-05 07:46] VITALS: O2SAT 96
[2023-11-05] MEDS: Aspirin E.C. 81 MG Tablet PO (08:41)
[2023-11-05 09:35] VITALS: BP 153/68; PULSE 69; RESP 16; TEMP 36.4; O2SAT 95
[2023-11-05] MEDS: Spironolactone 25 MG Tablet PO (10:11)
[2023-11-05] MEDS: Lisinopril 5 MG Tablet PO (10:12)
[2023-11-05] MEDS: Citalopram 20 MG Tablet PO (10:12)
[2023-11-05] MEDS: Propranolol LA 80 MG Capsule PO (10:12)
[2023-11-05] MEDS: Famotidine 20 MG Tablet PO (10:12)
[2023-11-05] MEDS: Heparin Injection (Vial) 5,000 UNIT/ML VIAL 5000 UNIT SC (10:13)
[2023-11-05] MEDS: Potassium Chloride Oral Tablet 20 MEQ 40 MEQ PO (10:16)
[2023-11-05] MEDS: Insulin Glargine-YFGN 100 UNIT/ML Pen 15 UNIT SC (10:31)
[2023-11-05] MEDS: Insulin Lispro 100 UNIT/ML INSULN.PEN SC ×2 (10:32→16:31)
[2023-11-05 11:10] LABS: Bedside Glucose 244 mg/dL (74-106)
--- NOTE | 2023-11-05 11:18 | CASEMGMT ---
Patient was approved for [facility]. SW notified patient, physician, and RN. Await orders. Plan: d/c to [facility] under skilled level of care. Marnie SUÁREZ
--- NOTE | 2023-11-05 13:37 | CASEMGMT ---
SILVA called patient's daughter Risa and let her know patient was approved to go to [facility] and he will go today. SILVA called [facility] and left a voice mail letting them know about patient's discharge to TCU. Plan: d/c to [facility] under skilled level of care. Marnie SUÁREZ
--- NOTE | 2023-11-05 14:56 | PCM.TXEXTCAR ---
Diet Diet Order/Speech Therapy: 11/02/23 10:36 Diet: Cardiac: Calorie-Controlled Is pt able to select menu?: No How many daily calories?: 1800 calorie Routine Orders/Code Status O2 Liters per Minute: 4 O2 Frequency: Continuous Keep PO Greater than or Equal to (%): 90 Routine Lab Work: BMP (in 3 days) and - (Fingerstick blood sugars fasting and 4 PM, coverage with Humalog subcu per scale: 200-250: 5 units, 251-300: 8 units, 301-350: 12 units) Code Status: DNRCC-A (No intubation) Therapies Weight Bearing: Full weight bearing Physical Therapy: Eval and Treat Occupational Therapy: Eval and Treat Speech Therapy: Eval and Treat Problem/Diagnosis (1) Hypoxia: Status: Acute Code(s): R09.02 - Hypoxemia (2) Acute exacerbation of CHF (congestive heart failure): Status: Chronic Code(s): I50.9 - Heart failure, unspecified (3) Degenerative lumbar disc: Status: Acute Code(s): M51.36 - Other intervertebral disc degeneration, lumbar region Plan 1. Acute on chronic diastolic congestive heart failure-patient will remain on IV Lasix, labs will be monitored #2 hypoxia secondary to #1-patient's pulse ox will be monitored, oxygen will be titrated if possible, patient is currently on 3 L/min via nasal cannula #3 low back pain secondary to osteoarthritis-patient will continue to take [place] for back pain as needed #4 type 2 diabetes-patient's blood sugar will be monitored, sliding scale insulin will be given as needed, patient is on basal insulin #5 essential hypertension-continue present medications #6 essential tremor-complicates care, management, recovery, and prognosis, patient is on propranolol and primidone, I talked with the patient's daughter concerning this tremor, he has seen a neurologist in the past and they are fairly certain that it is not Parkinson's disease. #7 chronic obstructive pulmonary disease-continue aerosol treatments #8 acute debility to age and multiple medical problems including tremor-PT and OT will continue to see the patient, he will need at least short-term placement in a fpc facility Total clinical time spent by myself addressing the patient's medical issues, reviewing all of his data, and collaborating with patient's care team: 35 minutes Allergies/Procedures Done in Hospital Allergies Penicillins Allergy (Unknown, Verified 11/01/23 11:55) Unknown as a child metoprolol Adverse Reaction (Mild, Verified 11/01/23 11:55) Nausea Procedures: 2-D Echocardiogram Type of Care/Length of Stay Estimated LOS: Convalescent Care Less Than 30 days Type of Care Needed: Skilled Rehab Potential: Good Prognosis: Good Additional Orders/Day of Discharge H&P will serve as current which was dated: 11/01/23 Day of Discharge: 11/05/23 Dietary and Speech Recommendations Dietitian Recommendations/Changes: RD will change diet to 1800CCD/Cardiac to manage medical conditions. Discharge Plan Admission Admit Date/Time: 11/01/23 17:20 Primary Reason for Your Visit: CHF, debility Attending Provider: Artemio Montilla Primary Care Provider: Kyle Aguila Consulting Providers: Zabrina Yanez Instructions Patient Instructions: ED Back Sprain/Strain Discharge Orders/Prescriptions Prescriptions: New albuterol sulfate 2.5 mg /3 mL (0.083 %) Solution For Nebulization 2.5 mg inhalation Q4H PRN PRN (Reason: shortness of breath or wheezing) Qty: 0 0RF insulin glargine-yfgn 100 unit/mL (3 mL) Insulin Pen 15 unit subcut LUNCH Qty: 0 0RF hydrocodone-acetaminophen 5-325 mg Tablet 1 - 2 tab PO Q6H PRN PRN (Reason: Pain Score 1-10) 4 Days Qty: 10 0RF spironolactone 25 mg Tablet 25 mg PO DAILY Qty: 0 0RF potassium chloride 20 mEq Tablet,Er Particles/Crystals 40 meq PO BID Qty: 0 0RF propranolol 80 mg Capsule,Extended Release 24 Hr 80 mg PO BID Qty: 0 0RF lisinopril 5 mg Tablet 5 mg PO DAILY Qty: 0 0RF ondansetron 4 mg Tablet,Disintegrating 4 mg PO Q6H PRN PRN (Reason: Nausea) Qty: 0 0RF Artificial Tears([id number]-sudo) 1-0.2-0.2 % Drops 1 drp EACH EYE TID Qty: 0 0RF furosemide [Lasix] 40 mg tablet 40 mg PO UD Qty: 1 0RF Rx Instructions: 60 mg QAM, 40 mg Q 5 PM daily Continued atorvastatin 40 mg tablet 40 mg PO QHS aspirin [Adult Low Dose Aspirin] 81 mg tablet,delayed release (DR/EC) 81 mg PO QDAY acetaminophen 325 mg capsule 650 mg PO Q8H PRN (Reason: Pain) famotidine 20 mg tablet 20 mg PO DAILY gabapentin 400 mg capsule 400 mg PO QHS cholecalciferol (vitamin D3) 125 mcg (5,000 unit) capsule 125 mcg PO DAILY calcium carbonate [Tums Ultra] 400 mg calcium (1,000 mg) tablet,chewable 800 mg PO TID PRN (Reason: Acid Reflux) citalopram [Celexa] 20 mg tablet 20 mg PO DAILY Discontinued nitroglycerin 0.4 mg tablet, sublingual 0.4 mg SUBLINGUAL Q5-15M PRN (Reason: Pain) insulin lispro [Humalog U-100 Insulin] 100 unit/mL solution See Rx Instructions SC .COMPLEX Patient Comments: SC Rx Instructions: Inject as per sliding scale: 200-250 = 2u 251-300 = 3u 301-350 = 4u 351-400 = 5u SC with meals loperamide 2 mg capsule 2 mg PO Q12H PRN (Reason: Diarrhea) multivitamin Tablet 1 tab PO DAILY albuterol sulfate [ProAir HFA] 90 mcg/actuation HFA aerosol inhaler 2 puff inhalation Q4H PRN (Reason: shortness of breath or wheezing) vitamin B complex-folic acid [Super B Maxi Complex] 0.4 mg tablet 1 tab PO DAILY acetaminophen [Tylenol Extra Strength] 500 mg tablet 1,000 mg PO QHS furosemide 40 mg tablet 80 mg PO DAILY Lubricant Gel 0.25-0.3 % drops, liquid gel 1 drp EACH EYE QHS No Action lisinopril 5 mg tablet 5 mg PO QDAY 30 Days Qty: 30 Patient Comments: propranolol 60 mg capsule,extended release 24 hr 80 mg PO BID ondansetron HCl 4 mg tablet 4 mg PO Q6H PRN (Reason: nausea) insulin glargine [Lantus Solostar U-100 Insulin] 100 unit/mL (3 mL) insulin pen 40 unit SUBCUT LUNCH potassium chloride 20 mEq tablet extended release 40 meq PO DAILY spironolactone 25 mg tablet 25 mg PO DAILY polyvinyl alcohol [Artificial Tears (polyvin alc)] 1.4 % drops 1 drp EACH EYE BID Referrals / Follow Up: Kyle Aguila MD [Primary Care Provider] - Disposition Disposition (needs filled in before D/C Order can be placed): Intermediate Facility
--- NOTE | 2023-11-05 15:16 | DS.PCM_ITS ---
Providers Date of Admission: 11/01/23 Date of Discharge: 11/05/23 Primary Care Physician: Dr. Kyle Aguila MD Reason For Visit: SHORTNESS OF BREATH Diagnosis Discharge Diagnosis (1) Hypoxia: Status: Acute Code(s): R09.02 - Hypoxemia (2) Acute exacerbation of CHF (congestive heart failure): Status: Chronic Code(s): I50.9 - Heart failure, unspecified (3) Degenerative lumbar disc: Status: Acute Code(s): M51.36 - Other intervertebral disc degeneration, lumbar region Plan 1. Acute on chronic diastolic congestive heart failure-patient will remain on IV Lasix, labs will be monitored #2 hypoxia secondary to #1-patient's pulse ox will be monitored, oxygen will be titrated if possible, patient is currently on 3 L/min via nasal cannula #3 low back pain secondary to osteoarthritis-patient will continue to take [place] for back pain as needed #4 type 2 diabetes-patient's blood sugar will be monitored, sliding scale insulin will be given as needed, patient is on basal insulin #5 essential hypertension-continue present medications #6 essential tremor-complicates care, management, recovery, and prognosis, patient is on propranolol and primidone, I talked with the patient's daughter concerning this tremor, he has seen a neurologist in the past and they are fairly certain that it is not Parkinson's disease. 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 Total clinical time spent by myself addressing the patient's medical issues, reviewing all of his data, and collaborating with patient's care team: 35 minutes Medications at Discharge Home Medications aspirin 81 mg tablet,delayed release (Adult Low Dose Aspirin) 81 mg PO QDAY preventative 08/19/17 atorvastatin 40 mg tablet 40 mg PO QHS cholesterol 08/19/17 lisinopril 5 mg tablet 5 mg PO QDAY bp 30 days #30 tabs 08/19/17 acetaminophen 325 mg capsule 650 mg PO Q8H PRN Pain 11/29/20 calcium carbonate (Tums Ultra) 800 mg PO TID PRN Acid Reflux 11/29/20 cholecalciferol (vitamin D3) 125 mcg (5,000 unit) capsule 125 mcg PO DAILY vitamin 11/29/20 famotidine 20 mg tablet 20 mg PO DAILY stomach 11/29/20 gabapentin 400 mg capsule 400 mg PO QHS neuropathy 11/29/20 ondansetron HCl 4 mg tablet 4 mg PO Q6H PRN nausea 11/29/20 propranolol 60 mg capsule,24 hr,extended release 80 mg PO BID heart 11/29/20 insulin glargine 100 unit/mL (3 mL) subcutaneous pen (Lantus Solostar U-100 Insulin) 40 unit subcut LUNCH diabetes 11/30/20 citalopram 20 mg tablet (Celexa) 20 mg PO DAILY anxiety 11/01/23 polyvinyl alcohol 1.4 % eye drops (Artificial Tears (polyvinyl alcohol)) 1 drp EACH EYE BID dryness 11/01/23 potassium chloride 20 mEq tablet,extended release 40 meq PO DAILY potassium 11/01/23 spironolactone 25 mg tablet 25 mg PO DAILY water pill 11/01/23 albuterol sulfate 2.5 mg/3 mL (0.083 %) solution for nebulization 2.5 mg (3 mL) inhalation Q4H PRN PRN shortness of breath or wheezing #0 mL 11/05/23 furosemide 40 mg tablet (Lasix) 40 mg PO UD heart #1 TAB 11/05/23 hydrocodone-acetaminophen 5-325mg 5mg-325mg 1 - 2 tab PO Q6H PRN PRN Pain Score 1-10 4 days #10 tabs 11/05/23 insulin glargine-yfgn 100 unit/mL (3 mL) subcutaneous pen 15 unit (0.15 mL) subcut LUNCH Diabetes #0 mL 11/05/23 lisinopril 5 mg tablet 5 mg PO DAILY Bp #0 tabs 11/05/23 ondansetron 4 mg disintegrating tablet 4 mg PO Q6H PRN PRN Nausea #0 tabs 11/05/23 peg [id number] 1 %-0.2 %-0.2 % eye drops (Artificial Tears ([id number])) 1 drp EACH EYE TID Dry Eyes #0 mL 11/05/23 potassium chloride 20 mEq tablet,extended release(part/cryst) 40 meq (2 x 20 mEq) PO BID #0 tabs 11/05/23 propranolol 80 mg capsule,24 hr,extended release 80 mg PO BID BP #0 caps 11/05/23 spironolactone 25 mg tablet 25 mg PO DAILY #0 tabs 11/05/23 Hospital Course Operations None Procedures 2-D Echocardiogram Summary of Care Provided Minutes Spent on Discharge: 32 Hospital Course: This 78-year-old white male seen in the emergency room at [facility] with complaints of low back pain, patient denied any fall or injury, patient has multiple medical problems including severe tremor and neuropathy of diabetes. Patient is in assisted living and he was not able to perform ADLs and his family was concerned and urged him to go to the ER for evaluation. Workup included chest x-ray which showed lower lobe atelectasis and small lower lobe pleural effusions, lumbar spine x-ray showed no evidence of lumbar spinal fracture or spondylolisthesis. Patient was admitted for congestive heart failure, patient was seen by PT and OT and it was felt that his level of care was too great to return to assisted living and arrangements were made for him to go to a snf facility for short-term rehab services. I talked with his daughter by phone about this, also patient's echocardiogram showed an ejection fraction of 50%. MRI was done of the lumbar spine which showed multilevel disc disease but no indication for surgical intervention on an acute basis. On 11/06/2023, patient was seen and examined: On examination he appeared in good health and spirits. Patient has a visible resting tremor. Vital signs as documented. Skin warm and dry and without overt rashes. Neck without JVD, neck was supple, trachea midline, thyroid was normal. Lungs clear bilaterally, normal air movement was noted. Heart exam notable for regular rhythm, normal sounds and absence of murmurs, rubs or gallops. Abdomen unremarkable and without evidence of organomegaly, masses, or abdominal aortic enlargement. Bowel sounds are present, abdomen is not distended. Extremities nonedematous, no cyanosis was noted, no clubbing was noted. Neuro: Cranial nerves II through XII are grossly intact, no focal motor deficits were noted, sensation to light touch and pinprick intact, motor exam 5/5 throughout. Psych: Patient is alert and oriented x3, he does not appear anxious or depressed, he does not appear agitated. Patient was discharged to a snf facility on 11/06/2023 in stable condition Weight / BMI Weight Weight: 71.2 kg Body Mass Index (BMI) 25.3 ABG / Lab / Microbiology Data 11/02/23 06:42 11/04/23 06:25 Laboratory: Laboratory Results - last 24 hr 11/04/23 17:37: POC Glucose 106 11/04/23 21:22: POC Glucose 113 H 11/04/23 23:53: POC Glucose 61 L 11/05/23 00:14: POC Glucose 82 11/05/23 02:03: POC Glucose 173 H 11/05/23 06:28: POC Glucose 136 H 11/05/23 10:27: POC Glucose 244 H Radiography Diagnostic Testing: Radiology Impression Lumbar Spine MRI 11/04/23 11:58 IMPRESSION: Mild mid lumbar spondylosis most prominent L3-4 image with mild spinal canal narrowing, mild lateral recess narrowing, mild bilateral foraminal stenosis Electronically Signed: Curt Bragg MD at 18:58 EDT Reading Location ID and State: [facility] / [place] Tel , Service support , Meaningful Use Info Meaningful Use Meaningful Use Diagnoses (Choose all that apply): CHF CHF ESTIVEN/ARB ordered at discharge?: Yes Documented LVEF (%): 50 Ischemic Stroke Statin Dosing Therapy Reference: STATIN DOSE THERAPY REFERENCE: * Patients > 75 years receive moderate or high dose statin therapy. * Patients 75 years or YOUNGER should receive HIGH intensity statin dose unless contraindicated. You will be required to document reason for non-treatment if statin daily dose does not meet guidelines. HIGH DOSE STATIN THERAPY DAILY Atorvastatin > than or = to 40 mg Rosuvastatin > than or = to 20 mg Amlodipine + Atorvastatin > than or = to 2.5/40 mg Ezetimibe + Simvastatin 10/80 mg Simvastatin 80mg Discharge Plan Admission Admit Date/Time: 11/01/23 17:20 Primary Reason for Your Visit: CHF, debility Attending Provider: Artemio Montilla Primary Care Provider: Kyle Aguila Consulting Providers: Zabrina Yanez Instructions Patient Instructions: ED Back Sprain/Strain Discharge Orders/Prescriptions Prescriptions: New albuterol sulfate 2.5 mg /3 mL (0.083 %) Solution For Nebulization 2.5 mg inhalation Q4H PRN PRN (Reason: shortness of breath or wheezing) Qty: 0 0RF insulin glargine-yfgn 100 unit/mL (3 mL) Insulin Pen 15 unit subcut LUNCH Qty: 0 0RF hydrocodone-acetaminophen 5-325 mg Tablet 1 - 2 tab PO Q6H PRN PRN (Reason: Pain Score 1-10) 4 Days Qty: 10 0RF spironolactone 25 mg Tablet 25 mg PO DAILY Qty: 0 0RF potassium chloride 20 mEq Tablet,Er Particles/Crystals 40 meq PO BID Qty: 0 0RF propranolol 80 mg Capsule,Extended Release 24 Hr 80 mg PO BID Qty: 0 0RF lisinopril 5 mg Tablet 5 mg PO DAILY Qty: 0 0RF ondansetron 4 mg Tablet,Disintegrating 4 mg PO Q6H PRN PRN (Reason: Nausea) Qty: 0 0RF Artificial Tears([id number]) 1-0.2-0.2 % Drops 1 drp EACH EYE TID Qty: 0 0RF furosemide [Lasix] 40 mg tablet 40 mg PO UD Qty: 1 0RF Rx Instructions: 60 mg QAM, 40 mg Q 5 PM daily Continued atorvastatin 40 mg tablet 40 mg PO QHS aspirin [Adult Low Dose Aspirin] 81 mg tablet,delayed release (DR/EC) 81 mg PO QDAY acetaminophen 325 mg capsule 650 mg PO Q8H PRN (Reason: Pain) famotidine 20 mg tablet 20 mg PO DAILY gabapentin 400 mg capsule 400 mg PO QHS cholecalciferol (vitamin D3) 125 mcg (5,000 unit) capsule 125 mcg PO DAILY calcium carbonate [Tums Ultra] 400 mg calcium (1,000 mg) tablet,chewable 800 mg PO TID PRN (Reason: Acid Reflux) citalopram [Celexa] 20 mg tablet 20 mg PO DAILY Discontinued nitroglycerin 0.4 mg tablet, sublingual 0.4 mg SUBLINGUAL Q5-15M PRN (Reason: Pain) insulin lispro [Humalog U-100 Insulin] 100 unit/mL solution See Rx Instructions SC .COMPLEX Patient Comments: SC Rx Instructions: Inject as per sliding scale: 200-250 = 2u 251-300 = 3u 301-350 = 4u 351-400 = 5u SC with meals loperamide 2 mg capsule 2 mg PO Q12H PRN (Reason: Diarrhea) multivitamin Tablet 1 tab PO DAILY albuterol sulfate [ProAir HFA] 90 mcg/actuation HFA aerosol inhaler 2 puff inhalation Q4H PRN (Reason: shortness of breath or wheezing) vitamin B complex-folic acid [Super B Maxi Complex] 0.4 mg tablet 1 tab PO DAILY acetaminophen [Tylenol Extra Strength] 500 mg tablet 1,000 mg PO QHS furosemide 40 mg tablet 80 mg PO DAILY Lubricant Gel 0.25-0.3 % drops, liquid gel 1 drp EACH EYE QHS No Action lisinopril 5 mg tablet 5 mg PO QDAY 30 Days Qty: 30 Patient Comments: propranolol 60 mg capsule,extended release 24 hr 80 mg PO BID ondansetron HCl 4 mg tablet 4 mg PO Q6H PRN (Reason: nausea) insulin glargine [Lantus Solostar U-100 Insulin] 100 unit/mL (3 mL) insulin pen 40 unit SUBCUT LUNCH potassium chloride 20 mEq tablet extended release 40 meq PO DAILY spironolactone 25 mg tablet 25 mg PO DAILY polyvinyl alcohol [Artificial Tears (polyvin alc)] 1.4 % drops 1 drp EACH EYE BID Referrals / Follow Up: Kyle Aguila MD [Primary Care Provider] - Disposition Disposition (needs filled in before D/C Order can be placed): [facility] Facility Charges/Coding Visit Charges Inpatient E&M: 52083 Disch Hosp >30min
[2023-11-05 15:35] VITALS: BP 140/64; PULSE 65; RESP 14; TEMP 36.5; O2SAT 94
[2023-11-05 16:40] VITALS: BP 138/60; PULSE 62; RESP 16; TEMP 36.3; O2SAT 95
[2023-11-05 16:50] LABS: Bedside Glucose 220 mg/dL (74-106)
== END 2023-11-05 17:18 | disposition skilled nursing facility (03) | DRG 291 ==
LOC: ED 16:54 → PCU 17:37
PROVIDERS: Internal Medicine; Physician Assistant; Admitting Provider Internal Medicine; Emergency Provider Emergency Medicine; PCP Family Medicine; Visit Provider Internal Medicine
DX: I11.0 Hypertensive heart disease with heart failure (principal); I50.33 Acute on chronic diastolic (congestive) heart failure; E11.649 Type 2 diabetes mellitus with hypoglycemia without coma; E11.40 Type 2 diabetes mellitus with diabetic neuropathy, unspecified; J44.9 Chronic obstructive pulmonary disease, unspecified; Z79.4 Long term (current) use of insulin; R54 Age-related physical debility; G25.0 Essential tremor; E78.5 Hyperlipidemia, unspecified; I25.5 Ischemic cardiomyopathy; I25.10 Atherosclerotic heart disease of native coronary artery without angina pectoris; K21.9 Gastro-esophageal reflux disease without esophagitis; M51.36 Other intervertebral disc degeneration, lumbar region; R09.02 Hypoxemia; Z74.09 Other reduced mobility; Z79.82 Long term (current) use of aspirin; Z87.891 Personal history of nicotine dependence; G47.00 Insomnia, unspecified
CPT/HCPCS: 36415; 71045; 72100; 72148; 80048; 80053; 81001; 82248; 82962; 83735; 83880; 84100; 84443; 84484; 85025; 85610; 93005; 93306; 97110; 97162; 97166; 97530; 97535; 99252; 99284; A4216; G0463; J1940

== ENCOUNTER 2023-11-05 17:37 | Inpatient (IN) | payer MEDICARE, MEDICAID, SELFPAY ==
[2023-11-05 18:06] VITALS: BP 163/63; PULSE 69; RESP 18; TEMP 36.7; O2SAT 93; BMI 23.9
[2023-11-05 19:45] VITALS: PULSE 71
[2023-11-05 21:29] LABS: Bedside Glucose 287 mg/dL (74-106)
--- NOTE | 2023-11-05 21:31 | HP.PCM_ITS ---
HPI - General General Date of Admission: 11/05/23 Date of Service: 11/05/23 Chief Complaint: Here for rehabilitation. HPI Narrative 11/01/2023 TRINA SPENCER, is a 78 Male who presents to [facility] ED with back pain. Bilateral low back pain for 3 weeks, baseline electric wheelchair, only stands, pivots. Lives at [facility], unable to get off toilet 2/2 pain. Right leg chronically more weak, malodorous urine. No trauma, no falls. 80% pulsox on RA, oxygen 2 liters applied. BNP 1100, Chest X-ray small bilateral pleural effusions. Lasix 40mg IV given. 11/01/2023 Admit [facility]. Lasix 40mg IV bid, Echo acute HFpEF. PT/OT debility. 11/02/2023 Echo EF 50%. Stage 2 diastolic dysfunction. 11/02/2023 Lasix IV for acute HFpEF. Hypoxia 2/2 HFpEF, wean oxygen as tolerated. 11/03/2023 Oxygen 3 liters per nasal cannula. PT recommends SNF. 11/04/2023 MRI LS spine showed degenerative changes, no stenosis. on narcotics for low back pain. PT/OT SNF. SNF pending Pre-CERT. 11/05/2023 Hypoglycemic, insulin adjusted. 11/05/2023 Admit to TCU with debility, here for rehabiltiation, strengthening, prior to discharge to [facility]. [facility] Medical History Anxiety disorder, unspecified Ataxic gait Atherosclerosis of coronary artery of [place] heart without angina pectoris Chronic systolic (congestive) heart failure COPD (chronic obstructive pulmonary disease) Diabetes mellitus due to underlying condition with diabetic neuropathy, unspecified Essential tremor Hearing loss Ischemic cardiomyopathy Major depressive disorder, single episode, unspecified Non-rheumatic mitral regurgitation Non-rheumatic mitral valve stenosis Non-STEMI (non-ST elevated myocardial infarction) Old myocardial infarction Other malaise Secondary pulmonary arterial hypertension Tremor, unspecified Type 2 diabetes mellitus with mild nonproliferative diabetic retinopathy with macular edema, bilateral Type 2 diabetes mellitus without complications Home Medications aspirin 81 mg tablet,delayed release (Adult Low Dose Aspirin) 81 mg PO QDAY preventative 08/19/17 [History Last Taken 11/05/23 08:40] atorvastatin 40 mg tablet 40 mg PO QHS cholesterol 08/19/17 [History Last Taken 11/04/23] lisinopril 5 mg tablet 5 mg PO QDAY bp 30 days #30 tabs 08/19/17 [History Last Taken Unknown] acetaminophen 325 mg capsule 650 mg PO Q8H PRN Pain 11/29/20 [History Last Taken 11/04/23] calcium carbonate (Tums Ultra) 800 mg PO TID PRN Acid Reflux 11/29/20 [History Last Taken Unknown] cholecalciferol (vitamin D3) 125 mcg (5,000 unit) capsule 125 mcg PO DAILY vitamin 11/29/20 [History Last Taken 11/05/23] famotidine 20 mg tablet 20 mg PO DAILY stomach 11/29/20 [History Last Taken 11/05/23] gabapentin 400 mg capsule 400 mg PO QHS neuropathy 11/29/20 [History Last Taken 11/04/23 21:00] ondansetron HCl 4 mg tablet 4 mg PO Q6H PRN nausea 11/29/20 [History Last Taken Unknown] propranolol 60 mg capsule,24 hr,extended release 80 mg PO BID heart 11/29/20 [History Last Taken Unknown] insulin glargine 100 unit/mL (3 mL) subcutaneous pen (Lantus Solostar U-100 Insulin) 40 unit subcut LUNCH diabetes 11/30/20 [History Last Taken Unknown] citalopram 20 mg tablet (Celexa) 20 mg PO DAILY anxiety 11/01/23 [History Last Taken 11/05/23] polyvinyl alcohol 1.4 % eye drops (Artificial Tears (polyvinyl alcohol)) 1 drp EACH EYE BID dryness 11/01/23 [History Last Taken Unknown] potassium chloride 20 mEq tablet,extended release 40 meq PO DAILY potassium 11/01/23 [History Last Taken 11/05/23 10:15] spironolactone 25 mg tablet 25 mg PO DAILY water pill 11/01/23 [History Last Taken 11/05/23 10:10] albuterol sulfate 2.5 mg/3 mL (0.083 %) solution for nebulization 2.5 mg (3 mL) inhalation Q4H PRN PRN shortness of breath or wheezing #0 mL 11/05/23 [Rx Last Taken Unknown] furosemide 40 mg tablet (Lasix) 40 mg PO UD heart #1 TAB 11/05/23 [Rx Last Taken Unknown] hydrocodone-acetaminophen 5-325mg 5mg-325mg 1 - 2 tab PO Q6H PRN PRN Pain Score 1-10 4 days #10 tabs 11/05/23 [Rx Last Taken 11/04/23] insulin glargine-yfgn 100 unit/mL (3 mL) subcutaneous pen 15 unit (0.15 mL) subcut LUNCH Diabetes #0 mL 11/05/23 [Rx Last Taken 11/05/23 10:30] lisinopril 5 mg tablet 5 mg PO DAILY Bp #0 tabs 11/05/23 [Rx Last Taken 11/05/23] ondansetron 4 mg disintegrating tablet 4 mg PO Q6H PRN PRN Nausea #0 tabs 11/05/23 [Rx Last Taken Unknown] peg [id number] 1 %-0.2 %-0.2 % eye drops (Artificial Tears ([id number])) 1 drp EACH EYE TID Dry Eyes #0 mL 11/05/23 [Rx Last Taken 11/05/23] potassium chloride 20 mEq tablet,extended release(part/cryst) 40 meq (2 x 20 mEq) PO BID #0 tabs 11/05/23 [Rx Last Taken Unknown] propranolol 80 mg capsule,24 hr,extended release 80 mg PO BID BP #0 caps 11/05/23 [Rx Last Taken 11/05/23 10:10] spironolactone 25 mg tablet 25 mg PO DAILY #0 tabs 11/05/23 [Rx Last Taken Unknown] Allergy/AdvReac Type Severity Reaction Status Date / Time Penicillins Allergy Unknown Unknown Verified 11/01/23 11:55 metoprolol AdvReac Mild Nausea Verified 11/01/23 11:55 Family History Grandfather CVA (cerebral vascular accident) Surgical History History of cataract surgery History of left heart catheterization (~08/18/16) History of thoracentesis (~08/2016) Social History housing: assisted living facility Smoking Status: Former smoker Tobacco: How many years used: 40 how long ago did patient quit smoking: about 25 years ago Smoked about 2-3 paks a day alcohol intake: current alcohol intake frequency: holidays/special occasions only substance use type: does not use ROS Constitutional Constitutional: Reports fatigue and weakness; Denies chills, fever(s) or weight gain ENT HEENT: Denies headache(s), nasal congestion or nasal discharge Cardiovascular Cardiovascular: Denies chest pain or palpitations Respiratory/Chest Respiratory/Chest: Denies cough, excessive phlegm production or shortness of breath with exertion Gastrointestinal Gastrointestinal: Denies abdominal pain, nausea or vomiting Genitourinary Genitourinary: Denies dysuria Musculoskeletal Musculoskeletal: Denies joint pain or joint swelling Integumentary Integumentary: Denies rash or wounds Neurologic Neurologic: Reports abnormal movements and other Details: Severe tremor. ; Denies focal weakness, numbness or tingling Psychiatric Psychiatric: Denies anxiety, auditory hallucinations, depression, homicidal ideation or suicidal ideation Vital Signs Vital Signs Vital Signs: 11/05/23 18:06 Temperature 98.0 F Temperature Source Temporal Pulse Rate 69 Respiratory Rate 18 Blood Pressure 163/63 H Blood Pressure Mean 96 Blood Pressure Source Monitor Blood Pressure Position Semi-Fowlers Blood Pressure Location Right Arm Pulse Ox 93 Oxygen Delivery Method Nasal Cannula Oxygen Flow Rate (L/min) 2 Physical Exam Const alert General Appearance: cooperative HEENT normocephalic Eyes PERRL and EOMs intact bilaterally Neck supple, no JVD and no carotid bruits Resp normal respiratory effort, normal air movement and clear to auscultation bilaterally Cardio regular rate and regular rhythm GI normal to inspection, nondistended, normoactive bowel sounds, non-tender and non -distended Extremity normal capillary refill General Extremity: Negative for edema Skin no rashes or lesions noted General Skin Exam: no breakdown Neuro moves all extremities Neuro Narrative: Severe intention tremor. Motor Exam: general weakness Psych affect normal Appearance: appropriate Results Lab / Micro Data Labs: Laboratory Results - last 24 hr 11/05/23 21:08: POC Glucose 287 H Assessment & Plan Assessment/Plan (1) Debility: (2) Weakness: (3) Acute respiratory failure with hypoxia: (4) Acute on chronic heart failure with preserved ejection fraction (HFpEF): (5) Low back pain: (6) Essential tremor: (7) Diabetic neuropathy: (8) Coronary artery disease: (9) GERD (gastroesophageal reflux disease): (10) Diabetes mellitus: PLAN: Plan 78 year old male with below past medical history hospitalized for acute respiratory failure with hypoxia 2/2 acute on chronic HFpEF, complicated by low back pain, admitted to TCU with debility, here for rehabilitation, strengthening, prior to discharge home with [facility] ERASMO. * Debility - PT/OT. * Pain - Tylenol 1000mg q6 prn pain (1-5), [place] 5/325mg 2 tablets q6 prn pain (6-10). * Bowel - senna/colace 2 tablets bid, Dulcolax 10mg pr daily prn. * Adult immunization - Administer pneumonia vaccine, covid vaccine, flu vaccine as appropriate. * DVT prophylaxis - Lovenox 40mg sc daily. * Shortness of breath - Albuterol 2.5mg neb q4h prn. * Coronary artery disease - Propranolol 80mg bid, Lisinopril 5mg daily, Aspirin 81mg daily. * Hyperlipidemia - Atorvastatin 40mg qhs. * GERD - Famotidine 20mg daily, TUMS 500mg tid prn. * Vitamin D deficiency - D3 125mcg daily. * Depression - Citalopram 20mg daily, stable chronic exterminator helper use, GDR not recommended. * HFpEF - Propranolol 80mg bid, Lisinopril 5mg daily, Furosemide 60mg, 40mg, Aldactone 25mg daily. * Diabetic polyneuropathy - Gabapentin 400mg qhs. * Diabetes Mellitus II - Glargine 15 units lunch. * Nausea - Zofran odt 4mg q6 prn. * Dry Eyes - Artificial tears 1gtt ou tid. * Hypokalemia - KCL 40meq daily.
[2023-11-05 22:00] VITALS: BP 160/70; PULSE 71
[2023-11-05] MEDS: 0.9% Saline Lock 10 ML Syringe IV (22:19)
[2023-11-05] MEDS: Gabapentin 400 MG Capsule PO (22:50)
[2023-11-05] MEDS: Propranolol LA 80 MG Capsule PO (22:50)
[2023-11-05] MEDS: Glycerin/Hypromellose/PEG400 15 ml Bottle 1 DRP EACH EYE (22:50)
[2023-11-05] MEDS: Atorvastatin Calcium 40 MG Tablet PO (22:50)
--- NOTE | 2023-11-05 23:20 | NURSING ---
Upon entering room PT. adamantly stating to leave him alone, PT. refusing meds and BP, after further conversation PT. agreeable to take meds and check BP, PT. requested to have IV removed, states it is uncomfortable,
[2023-11-06] MEDS: Glycerin/Hypromellose/PEG400 15 ml Bottle 1 DRP EACH EYE ×3 (05:07→21:28)
[2023-11-06] MEDS: Enoxaparin 40 MG/0.4 ML Syringe SC (05:07)
[2023-11-06 05:50] LABS: Absolute Lymphocyte Count 1.25 X10^3/uL (0.83-4.51); Absolute Neutrophil Count 7.5 X10^3/uL (2.0-7.7); Basophil# 0.07 X10^3/uL; Basophil% 0.7 % (0-1); Eosinophil# 0.04 X10^3/uL; Eosinophils% 0.4 % (0-5); Hematocrit 36.8 % (40-54); Hemoglobin 11.4 g/dL (13.0-16.5); Lymphocyte # 1.25 X10^3/ul (0.83-4.51); Lymphocyte % 12.5 % (19-41); Mean Corpuscular Hgb 27.9 pg (27.0-32.0); Mean Corpuscular Volume 90.2 fL (80-94); Mean Platelet Vol. 12.4 fl (6.2-12.0); Monocyte# 1.08 X10^3/uL; Monocyte% 10.8 % (0-10); NRBC Flagged by Analyzer 0 % (0-5); Neutrophil # 7.51 X10^3/uL (2.7-7.7); Platelet Count 212 K/mm3 (150-450); RBC Distribution Width CV 14.4 % (11.6-14.6); RBC Distribution Width SD 47.2 fl (35.1-43.9); Red Blood Count 4.08 M/mm3 (4.6-6.2)
[2023-11-06 06:26] LABS: Bedside Glucose 269 mg/dL (74-106)
[2023-11-06 06:42] LABS: Anion Gap 7 (5-15); BUN 21 mg/dL (7-18); BUN/Creat Ratio 17.8 RATIO (10-20); Calcium,Total 9.1 mg/dL (8.5-10.1); Chloride 102 mmol/L (98-107); Creatinine, Serum 1.18 mg/dL (0.70-1.30); EST Glomerular Filtration Rate 63 mL/min (>60); Est Glom Filt Rate - Afr Amer 77 mL/min (>60); Estimated Creatinine Clearance 46.56 ml/min; Glucose 276 mg/dL (74-106); Potassium 4.1 mmol/L (3.5-5.1); Sodium Level 136 mmol/L (136-145)
[2023-11-06 08:32] VITALS: BP 153/57; PULSE 61; RESP 17; TEMP 37.2; O2SAT 92
--- NOTE | 2023-11-06 08:42 | NURSING ---
Patient was on RA upon nurse arrival. SpO2 was 84-86%. O2 was applied via NC @2L. SpO2 improved to 92%.
[2023-11-06] MEDS: Aspirin E.C. 81 MG Tablet PO (09:02)
[2023-11-06] MEDS: Citalopram 20 MG Tablet PO (09:03)
[2023-11-06] MEDS: Potassium Chloride Oral Tablet 20 MEQ 40 MEQ PO (09:03)
[2023-11-06] MEDS: Spironolactone 25 MG Tablet PO (09:03)
[2023-11-06] MEDS: Furosemide 40 MG Tablet 60 MG PO (09:04)
[2023-11-06] MEDS: Famotidine 20 MG Tablet PO (09:04)
[2023-11-06] MEDS: Propranolol LA 80 MG Capsule PO ×2 (09:04→21:31)
[2023-11-06] MEDS: Cholecalciferol (Vit D3) 125 MCG CAPSULE (5,000 UNITS) PO (09:05)
[2023-11-06] MEDS: Lisinopril 5 MG Tablet PO (09:05)
[2023-11-06 11:50] LABS: Bedside Glucose 327 mg/dL (74-106)
[2023-11-06] MEDS: Insulin Glargine-YFGN 100 UNIT/ML Pen 15 UNIT SC (12:53)
[2023-11-06] MEDS: Tuberculin,Purif.prot.deriv. 50 TU/ML Vial 0.1 ML ID (13:00)
--- NOTE | 2023-11-06 13:20 | NURSING ---
Riding Double Note; Activity Asset: Bhanu Alcaraz is independent in his choice of daily activities. He has stated due to his termers he is unable to do much for himself. he has to be feed and unable to hold the paper to read. he will watch tv but usually just listens to it. He has a therapy dog the come and visits him and was informed they can bring the dog in to see him here as well and her welcomes visits with our therapy dog too. Staff will remind him of daily activities and encourage out of room social activities. Staff will respect his right to say no. His family will be in to visit and bring him items he may need as well.
--- NOTE | 2023-11-06 14:28 | NURSING ---
Updated Dr. Olson on patient's elevated BGTs this shift. New orders received.
--- NOTE | 2023-11-06 15:56 | PHA.CONS_ITS ---
Documented by User: Issac Gaines 11/06/23 16:25 TCU RX Drug Regimen Review Subjective/Objective Subjective/Objective: Subjective: TCU admission note. 78 year old male with below past medical history hospitalized for acute respiratory failure with hypoxia 2/2 acute on chronic HFpEF, complicated by low back pain, admitted to TCU with debility, here for rehabilitation, strengthening, prior to discharge home with [facility]. Objective: Allergies Penicillins Allergy (Unknown, Verified 11/01/23 11:55) Unknown as a child metoprolol Adverse Reaction (Mild, Verified 11/01/23 11:55) Nausea Current Medications Generic Name Dose Route Start Last Admin Trade Name Freq PRN Reason Stop Dose Admin Acetaminophen 1,000 mg 11/05/23 21:51 Acetaminophen 500 Mg Tablet PO Q6H PRN PRN Pain Score 1-5 Hydrocodone Bitart/Acetaminophen 2 tablet 11/05/23 21:51 Hydrocodone Bitartrate/Apap 5/325 Tablet PO Q6H PRN PRN Pain Score 6-10 or Pre PT/OT Albuterol Sulfate 2.5 mg 11/05/23 17:55 Albuterol 2.5 Mg/3 Ml Vial.Neb. INHALATION Q4H PRN PRN shortness of breath or wheezing Aspirin 81 mg 11/06/23 08:00 11/06/23 09:02 Aspirin E.C. 81 Mg Tablet PO 81 mg BREAKFAST JAMESON Administration Atorvastatin Calcium 40 mg 11/05/23 22:00 11/05/23 22:50 Atorvastatin Calcium 40 Mg Tablet PO 40 mg QHS JAEMSON Administration Bisacodyl 10 mg 11/05/23 21:50 Bisacodyl 10 Mg Suppository RC DAILY PRN Constipation Calcium Carbonate 500 mg 11/05/23 18:07 Calcium Carbonate 500 Mg Tablet PO TID PRN Acid Reflux Cholecalciferol 125 mcg 11/06/23 10:00 11/06/23 09:05 Cholecalciferol (Vit D3) 125 Mcg Capsule (5,000 Units) PO 125 mcg DAILY JAMESON Administration Citalopram Hydrobromide 20 mg 11/06/23 10:00 11/06/23 09:03 Citalopram 20 Mg Tablet PO 20 mg DAILY JAMESON Administration Enoxaparin Sodium 40 mg 11/06/23 06:00 11/06/23 05:07 Enoxaparin 40 Mg/0.4 Ml Syringe SC 40 mg DAILY@0600 [facility] Administration Famotidine 20 mg 11/06/23 10:00 11/06/23 09:04 Famotidine 20 Mg Tablet PO 20 mg DAILY [facility] Administration Furosemide 40 mg 11/06/23 17:00 Furosemide 40 Mg Tablet PO DAILY@1700 [facility] Protocol Furosemide 60 mg 11/06/23 10:00 11/06/23 09:04 Furosemide 40 Mg Tablet PO 60 mg DAILY JAMESON Administration Gabapentin 400 mg 11/05/23 22:00 11/05/23 22:50 Gabapentin 400 Mg Capsule PO 400 mg QHS [facility] Administration Glycerin/Hypromellose/Polyethylene 1 drp 11/05/23 22:00 11/06/23 13:00 Glycerin/Hypromellose/[id number] 15 Ml Bottle EACH EYE 1 drp TID [facility] Administration Insulin Glargine 20 unit 11/07/23 12:00 Insulin Glargine-Yfgn 100 Unit/Ml Pen SC LUNCH [facility] Insulin Human Lispro 7 unit 11/06/23 16:45 Insulin Lispro 100 Unit/Ml Insuln.Pen SC TIDAC [facility] Lisinopril 5 mg 11/06/23 10:00 11/06/23 09:05 Lisinopril 5 Mg Tablet PO 5 mg DAILY [facility] Administration Protocol Ondansetron HCl 4 mg 11/05/23 17:55 Ondansetron Odt 4 Mg Tablet PO Q6H PRN PRN Nausea Potassium Chloride 40 meq 11/06/23 08:00 11/06/23 09:03 Potassium Chloride Oral Tablet 20 Meq PO 40 meq DAILYCM [facility] Administration Propranolol HCl 80 mg 11/05/23 22:00 11/06/23 09:04 Propranolol La 80 Mg Capsule PO 80 mg BID [facility] Administration Protocol Senna/Docusate Sodium 2 tablet 11/05/23 22:00 11/06/23 09:05 Senna/Docusate Sodium 1 Tablet PO Not Given BID [facility] Sodium Chloride 10 - 40 ml 11/05/23 18:10 11/05/23 22:19 0.9% Saline Lock 10 Ml Syringe IV 10 ml UD PRN Administration SALINE FLUSH Spironolactone 25 mg 11/06/23 10:00 11/06/23 09:03 Spironolactone 25 Mg Tablet PO 25 mg DAILY [facility] Administration Protocol Tuberculin PPD 0.1 ml 11/13/23 10:00 Tuberculin,Purif.Prot.Deriv. 50 Tu/Ml Vial ID 11/13/23 10:01 X1 ONE Problem List (Updated 11/05/23 @ 21:[address] Shelton Olson MD) Diabetes mellitus (Acute) GERD (gastroesophageal reflux disease) (Acute) Coronary artery disease (Acute) Diabetic neuropathy (Acute) Low back pain (Acute) Acute on chronic heart failure with preserved ejection fraction (HFpEF) (Acute) Acute respiratory failure with hypoxia (Acute) Weakness (Acute) Debility (Acute) Essential tremor (Chronic) Vital Signs Temp Pulse Resp BP Pulse Ox O2 Del Method O2 Flow Rate 98.9 F 61 17 153/57 H 92 Nasal Cannula 2 11/06/23 08:32 11/06/23 08:32 11/06/23 08:32 11/06/23 08:32 11/06/23 08:32 11/06/23 10:57 11/06/23 14:03 Oxygen Flow Rate (L/min) 2 Oxygen Delivery Method Nasal Cannula Weight: 67.358 kg Body Mass Index (BMI) 23.9 Sodium 136 mmol/L (136-145) 11/06/23 05:23 Potassium 4.1 mmol/L (3.5-5.1) 11/06/23 05:23 Chloride 102 mmol/L (98-107) 11/06/23 05:23 Carbon Dioxide 27.0 mmol/L (21.0-32.0) 11/06/23 05:23 Anion Gap 7 (5-15) 11/06/23 05:23 BUN 21 mg/dL (7-18) H 11/06/23 05:23 Creatinine 1.18 mg/dL (0.70-1.30) 11/06/23 05:23 Est GFR (MDRD) Af Amer 77 mL/min (>60) 11/06/23 05:23 Est GFR (MDRD) Non-Af 63 mL/min (>60) 11/06/23 05:23 BUN/Creatinine Ratio 17.8 RATIO (10-20) 11/06/23 05:23 Glucose 276 mg/dL (74-106) H 11/06/23 05:23 Assessment/Plan: 1. Pain: acetaminophen 1000 mg PO Q6H PRN pain, hydrocodone/acetaminophen 5/325 mg PO Q6H PRN pain. The patient has not required PRN doses of acetaminophen or hydrocodone/acetaminophen while here. Please continue to monitor pain levels, LFTs (AST/ALT = 22/17 U/L on 11/02/23), for constipation, drowsiness/dizziness, and syncope/ataxia/falls. 2. Bowel: senna/docusate 2 tablets PO BID, bisacodyl suppository 10 mg daily PRN constipation. The patient has not required any PRN bisacodyl so far this admission and the patient's last bowel movement was 11/05/23. Please continue to monitor for PRN medication usage, for constipation and diarrhea. 3. DVT prophylaxis: enoxaparin 40 mg SC daily. Please continue to monitor for s/s of a DVT such as erythema/edema/pain in a lower extremity as well as renal function (serum creatinine = 1.18 mg/dL with creatinine clearance ~ 47 mL/min on 11/06/23), for s/s of bleeding/excessive bruising, hemoglobin levels (Hgb = 11.4 g/dL on 11/06/23) and platelet count (Plt = 212 K/mm3 on 11/06/23). 4. CAD/Hyperlipidemia/HFpEF: propranolol 80 mg PO BID, aspirin 81 mg PO daily, furosemide 60 mg AM, 40 mg PM, lisinopril 5 mg PO daily, spironolactone 25 mg daily, atorvastatin 40 mg daily. Please continue to monitor for chest pain, shortness of breath, blood pressures (recent range = 120-164/50-70 mmHg), heart rates (recent range = 53-71 beats/min), fatigue, GI distress with aspirin administration, platelet count (Plt = 212 K/mm3 on 11/06/23), for dehydration, renal function (serum creatinine = 1.18 mg/dL with creatinine clearance ~ 47 mL/min on 11/06/23), sodium levels (NA = 136 mmol/L on 11/06/23), potassium levels (K = 4.1 mmol/L on 11/06/23), calcium levels (CA = 9.1 mg/dL on 11/06/23), for dry cough, and for angioedema, LFTs (AST/ALT = 22/17 U/L on 11/02/23), and lipid levels (cholesterol = 114 mg/dL with LDL = 53 mg/dL on 05/18/23). The patient's blood pressure has remained elevated over the past several days. Please consider increasing the patient's lisinopril to 10 mg daily to help with blood pressure control. 5. Diabetes mellitus II: Insulin glargine 20 units SC daily with lunch, insulin lispro 7 mg SC TIDAC. Please continue to monitor blood glucose levels (recent range = 106-327), for injection site pain, and A1C levels (A1C = 8.0% on 05/18/23). The patient's blood glucose readings haven continue to creep up in to the 300s over the past day or two. Please consider adding a sliding scale to help correct the patient's elevated insulins. 6. Shortness of breath: albuterol 2.5 mg inhalation Q4H PRN shortness of breath. The patient has not required any PRN doses of albuterol so far this admission. Please continue to monitor for shortness of breath, PRN medication usage, and for palpitations. 7. Diabetic polyneuropathy: gabapentin 400 mg PO QHS. Please continue to monitor for neuropathy, renal function (serum creatinine = 1.18 mg/dL with creatinine clearance ~ 47 mL/min on 11/06/23), for drowsiness/dizziness, and for swelling. 8. GERD: famotidine 20 mg daily, calcium carbonate 500 mg PO TID PRN acid reflux. The patient has not required any PRN calcium carbonate so far this admission. Please continue to monitor for GERD, renal function (serum creatinine = 1.18 mg/dL with creatinine clearance ~ 47 mL/min on 11/06/23), and for PRN calcium carbonate admission. 9. Vitamin D deficiency: cholecalciferol 125 mcg PO daily. Please continue to monitor for s/s of vitamin D deficiency, and vitamin D levels (vitamin D level = 21.6 ng/mL on 05/28/18). Please consider ordering a repeat vitamin D level as the patient has not had a level for several years. 10. Nausea: ondansetron 4 mg Q6H PRN nausea. The patient has not required any PRN ondansetron so far this admission. Please continue to monitor for PRN medication usage and for nausea. 11. Dry eyes: artificial tears, 1 drop in each eye three times daily. Please continue to monitor for dry eyes and PRN medication usage. 12. Potassium chloride 40 mEq PO daily with a meal. Please continue to monitor potassium levels (K = 4.1 mmol/L on 11/06/23), and for GI distress with potassium administration. Assessment/Plan for indications treated with psychotropic medications: 1. Depression: citalopram 20 mg PO daily. Please see provider note regarding stable chronic medical record assistant use GDR not recommended. Please continue to monitor for s/s of depression, for serotonin syndrome, for SI, sodium levels (NA = 136 mmol/L on 11/06/23), and for nausea and dry mouth. Medical chart and medication regimen reviewed. The following medication irregularities or issues were identified: 1. CAD/Hyperlipidemia/HFpEF: propranolol 80 mg PO BID, aspirin 81 mg PO daily, furosemide 60 mg AM, 40 mg PM, lisinopril 5 mg PO daily, spironolactone 25 mg daily, atorvastatin 40 mg daily. The patient's blood pressure has remained elevated over the past several days. Please consider increasing the patient's lisinopril to 10 mg daily to help with blood pressure control. 2. Diabetes mellitus II: Insulin glargine 20 units SC daily with lunch, insulin lispro 7 mg SC TIDAC. The patient's blood glucose readings haven continue to creep up in to the 300s over the past day or two. Please consider adding a sliding scale to help correct the patient's elevated insulins. 3. Vitamin D deficiency: cholecalciferol 125 mcg PO daily. Please consider ordering a repeat vitamin D level as the patient has not had a level for several years Date Date of Note:: 11/06/23 Documented by User: Dr. Shelton Olson MD 11/06/23 18:55 TCU RX Drug Regimen Review Provider Comments Provider responsibility Provider Comments to Recommendations by Pharmacy: Agree
[2023-11-06 17:46] LABS: Bedside Glucose 352 mg/dL (74-106)
[2023-11-06 18:19] VITALS: BP 160/64; PULSE 60
[2023-11-06] MEDS: Insulin Lispro 100 UNIT/ML INSULN.PEN 7 UNIT SC (18:22)
[2023-11-06] MEDS: Furosemide 40 MG Tablet PO (18:23)
[2023-11-06] MEDS: Atorvastatin Calcium 40 MG Tablet PO (21:33)
[2023-11-06] MEDS: Gabapentin 400 MG Capsule PO (21:35)
[2023-11-06 21:42] VITALS: BP 138/52; PULSE 61
[2023-11-06 22:00] VITALS: PULSE 61
[2023-11-06 22:04] LABS: Bedside Glucose 223 mg/dL (74-106)
[2023-11-07 01:13] VITALS: BMI 23.8
[2023-11-07] MEDS: Glycerin/Hypromellose/PEG400 15 ml Bottle 1 DRP EACH EYE ×3 (05:06→23:18)
[2023-11-07] MEDS: Enoxaparin 40 MG/0.4 ML Syringe SC (05:06)
[2023-11-07 06:28] LABS: Bedside Glucose 177 mg/dL (74-106)
[2023-11-07] MEDS: Insulin Lispro 100 UNIT/ML INSULN.PEN 7 UNIT SC ×3 (08:00→17:41)
[2023-11-07] MEDS: Lisinopril 10 MG Tablet PO (09:04)
[2023-11-07] MEDS: Furosemide 40 MG Tablet 60 MG PO (09:04)
[2023-11-07] MEDS: Citalopram 20 MG Tablet PO (09:05)
[2023-11-07] MEDS: Spironolactone 25 MG Tablet PO (09:05)
[2023-11-07] MEDS: Famotidine 20 MG Tablet PO (09:05)
[2023-11-07] MEDS: Propranolol LA 80 MG Capsule PO ×2 (09:06→23:19)
[2023-11-07] MEDS: Senna/Docusate Sodium 1 Tablet 2 TABLET PO (09:06)
[2023-11-07] MEDS: Cholecalciferol (Vit D3) 125 MCG CAPSULE (5,000 UNITS) PO (09:06)
[2023-11-07] MEDS: Aspirin E.C. 81 MG Tablet PO (09:09)
[2023-11-07] MEDS: Potassium Chloride Oral Tablet 20 MEQ 40 MEQ PO (09:18)
[2023-11-07 11:14] LABS: Bedside Glucose 223 mg/dL (74-106)
[2023-11-07] MEDS: Insulin Glargine-YFGN 100 UNIT/ML Pen 20 UNIT SC (12:00)
[2023-11-07 12:39] VITALS: O2SAT 98
[2023-11-07 15:29] VITALS: BP 142/52; PULSE 84; RESP 14; TEMP 36.6; O2SAT 94
[2023-11-07 16:22] LABS: Bedside Glucose 160 mg/dL (74-106)
[2023-11-07] MEDS: Furosemide 40 MG Tablet PO (17:40)
[2023-11-07 21:11] LABS: Bedside Glucose 171 mg/dL (74-106)
[2023-11-07 23:15] VITALS: BP 159/57; PULSE 65
[2023-11-07] MEDS: Gabapentin 400 MG Capsule PO (23:17)
[2023-11-07] MEDS: Atorvastatin Calcium 40 MG Tablet PO (23:19)
[2023-11-08 05:21] VITALS: BMI 23.3
--- NOTE | 2023-11-08 06:20 | NURSING ---
Resident is refusing to have Artificial Tears and Lovenox administered at this time d/t difficulty sleeping throughout the night. O2 off. SpO2 95% on room air. Did not reapply nasal cannula. Will continue to monitor.
--- NOTE | 2023-11-08 06:23 | NURSING ---
Resident notes he would like his daughter or granddaughter, who are both POAs per his report, to sign the admission paperwork. Will report to oncoming nurse.
[2023-11-08 06:35] LABS: Bedside Glucose 156 mg/dL (74-106)
[2023-11-08 08:26] VITALS: BP 113/42; PULSE 58; RESP 17; TEMP 36.5; O2SAT 94
[2023-11-08] MEDS: Insulin Lispro 100 UNIT/ML INSULN.PEN 7 UNIT SC ×3 (08:32→17:51)
[2023-11-08] MEDS: Enoxaparin 40 MG/0.4 ML Syringe SC (08:33)
[2023-11-08] MEDS: Aspirin E.C. 81 MG Tablet PO (08:33)
[2023-11-08] MEDS: Potassium Chloride Oral Tablet 20 MEQ 40 MEQ PO (08:33)
[2023-11-08] MEDS: Glycerin/Hypromellose/PEG400 15 ml Bottle 1 DRP EACH EYE ×3 (08:33→23:11)
[2023-11-08] MEDS: Propranolol LA 80 MG Capsule PO ×2 (08:34→23:15)
[2023-11-08] MEDS: Citalopram 20 MG Tablet PO (08:34)
[2023-11-08] MEDS: Spironolactone 25 MG Tablet PO (08:34)
[2023-11-08] MEDS: Furosemide 40 MG Tablet 60 MG PO (08:35)
[2023-11-08] MEDS: Famotidine 20 MG Tablet PO (08:35)
[2023-11-08] MEDS: Cholecalciferol (Vit D3) 125 MCG CAPSULE (5,000 UNITS) PO (08:36)
[2023-11-08] MEDS: Lisinopril 10 MG Tablet PO (08:37)
[2023-11-08 11:19] LABS: Bedside Glucose 147 mg/dL (74-106)
[2023-11-08] MEDS: Insulin Glargine-YFGN 100 UNIT/ML Pen 20 UNIT SC (12:15)
[2023-11-08 16:45] LABS: Bedside Glucose 91 mg/dL (74-106)
[2023-11-08 17:49] VITALS: BP 145/45; PULSE 65
[2023-11-08] MEDS: Furosemide 40 MG Tablet PO (17:51)
[2023-11-08 21:30] LABS: Bedside Glucose 118 mg/dL (74-106)
[2023-11-08] MEDS: Menthol/Lanolin/Calamine/Znox 113 GM Tube 1 APPLIC TOPICAL (23:11)
[2023-11-08] MEDS: Gabapentin 400 MG Capsule PO (23:15)
[2023-11-08] MEDS: Atorvastatin Calcium 40 MG Tablet PO (23:15)
[2023-11-09] VITALS (8 sets, daily range): BP systolic 132–134; BP diastolic 52–74; PULSE 57–68; RESP 16; TEMP 36.7; O2SAT 88–97; BMI 23.0
--- NOTE | 2023-11-09 00:30 | NURSING ---
Resident is laying in bed awake in semi murray's position. O2 off. SpO2 checked and lowest level was 88%. O2 applied at 2 lpm via nc. Resident is requesting his blood sugar be checked as hs reading was low and was given ice cream. Blood sugar 225. Will continue to monitor.
[2023-11-09 00:46] LABS: Bedside Glucose 225 mg/dL (74-106)
[2023-11-09 06:39] LABS: Bedside Glucose 220 mg/dL (74-106)
[2023-11-09] MEDS: Propranolol LA 80 MG Capsule PO ×2 (08:26→21:33)
[2023-11-09] MEDS: Famotidine 20 MG Tablet PO (08:27)
[2023-11-09] MEDS: Furosemide 40 MG Tablet 60 MG PO (08:27)
[2023-11-09] MEDS: Aspirin E.C. 81 MG Tablet PO (08:27)
[2023-11-09] MEDS: Citalopram 20 MG Tablet PO (08:29)
[2023-11-09] MEDS: Potassium Chloride Oral Tablet 20 MEQ 40 MEQ PO (08:29)
[2023-11-09] MEDS: Lisinopril 10 MG Tablet PO (08:29)
[2023-11-09] MEDS: Cholecalciferol (Vit D3) 125 MCG CAPSULE (5,000 UNITS) PO (08:29)
[2023-11-09] MEDS: Insulin Lispro 100 UNIT/ML INSULN.PEN 7 UNIT SC ×3 (08:29→18:27)
[2023-11-09] MEDS: Spironolactone 25 MG Tablet PO (08:30)
[2023-11-09] MEDS: Enoxaparin 40 MG/0.4 ML Syringe SC (08:30)
[2023-11-09] MEDS: Menthol/Lanolin/Calamine/Znox 113 GM Tube 1 APPLIC TOPICAL (08:30)
[2023-11-09] MEDS: Glycerin/Hypromellose/PEG400 15 ml Bottle 1 DRP EACH EYE ×3 (08:31→21:34)
[2023-11-09 11:33] LABS: Bedside Glucose 198 mg/dL (74-106)
--- NOTE | 2023-11-09 11:48 | NURSING ---
Offered covid vaccine, VIS provided. Patient refuses at this time.
[2023-11-09] MEDS: Insulin Glargine-YFGN 100 UNIT/ML Pen 20 UNIT SC (12:06)
[2023-11-09] MEDS: HYDROcodone Bitartrate/Apap 5/325 Tablet PO (13:02)
--- NOTE | 2023-11-09 13:14 | NURSING ---
Patient verified that he wants to be DNRCC-A, no intubation. This nurse and [employer] DENTAL TREATMENT COORDINATOR present for code status conversation. Unable to sign papers because of his tremors.
--- NOTE | 2023-11-09 14:35 | CASEMGMT ---
TCU admit note Cloth Examiner Met with patient to complete initial assessment. Introduced self and role. Verified patient's contacts. Patient confirmed that he wants DNR-CC for code status. Educated patient to medicare benefit. Patient's goal is to return to [facility] when he is medically ready for discharge. Sw will continue to follow patient to assist with discharge planning needs. Carson Walker, SLOT FLOOR ATTENDANT, INSTITUTIONAL COOK
[2023-11-09 16:47] LABS: Bedside Glucose 125 mg/dL (74-106)
[2023-11-09] MEDS: Furosemide 40 MG Tablet PO (17:45)
[2023-11-09] MEDS: Atorvastatin Calcium 40 MG Tablet PO (21:33)
[2023-11-09 21:36] LABS: Bedside Glucose 85 mg/dL (74-106)
[2023-11-09] MEDS: Gabapentin 400 MG Capsule PO (21:36)
[2023-11-10 06:00] VITALS: BMI 23.1
[2023-11-10 06:34] LABS: Bedside Glucose 139 mg/dL (74-106)
[2023-11-10] MEDS: Insulin Lispro 100 UNIT/ML INSULN.PEN 7 UNIT SC ×3 (07:19→17:48)
[2023-11-10] MEDS: Potassium Chloride Oral Tablet 20 MEQ 40 MEQ PO (07:19)
[2023-11-10] MEDS: Aspirin E.C. 81 MG Tablet PO (07:19)
[2023-11-10] MEDS: Glycerin/Hypromellose/PEG400 15 ml Bottle 1 DRP EACH EYE ×3 (07:19→21:50)
[2023-11-10] MEDS: Enoxaparin 40 MG/0.4 ML Syringe SC (07:20)
[2023-11-10] MEDS: Propranolol LA 80 MG Capsule PO ×2 (08:44→21:49)
[2023-11-10] MEDS: Menthol/Lanolin/Calamine/Znox 113 GM Tube 1 APPLIC TOPICAL ×2 (08:44→21:51)
[2023-11-10] MEDS: Furosemide 40 MG Tablet 60 MG PO (08:45)
[2023-11-10] MEDS: Famotidine 20 MG Tablet PO (08:45)
[2023-11-10] MEDS: Citalopram 20 MG Tablet PO (08:46)
[2023-11-10] MEDS: Spironolactone 25 MG Tablet PO (08:46)
[2023-11-10] MEDS: Lisinopril 10 MG Tablet PO (08:47)
[2023-11-10] MEDS: Cholecalciferol (Vit D3) 125 MCG CAPSULE (5,000 UNITS) PO (08:47)
[2023-11-10] MEDS: HYDROcodone Bitartrate/Apap 5/325 Tablet PO (08:50)
[2023-11-10 08:53] VITALS: BMI 23.1
[2023-11-10 11:12] VITALS: PULSE 54; RESP 18; O2SAT 94
[2023-11-10] MEDS: Albuterol 2.5 MG/3 ML VIAL.NEB. INHALATION (11:12)
[2023-11-10 11:14] LABS: Bedside Glucose 269 mg/dL (74-106)
--- NOTE | 2023-11-10 11:34 | NURSING ---
R' C/O SOB. SPO2 97% RA. CALLED R.T. TO GIVE BREATHING TX. R' IS FEELING BETTER NOW, USING I.S.
[2023-11-10] MEDS: Insulin Glargine-YFGN 100 UNIT/ML Pen 20 UNIT SC (11:35)
[2023-11-10] MEDS: Acetaminophen 500 MG Tablet 1000 MG PO (11:39)
[2023-11-10 13:10] VITALS: PULSE 60; RESP 16; TEMP 36.6; O2SAT 92
[2023-11-10 13:15] VITALS: BP 126/40
[2023-11-10 17:35] LABS: Bedside Glucose 302 mg/dL (74-106)
[2023-11-10] MEDS: Furosemide 40 MG Tablet PO (17:48)
[2023-11-10] MEDS: Gabapentin 400 MG Capsule PO (21:48)
[2023-11-10] MEDS: Atorvastatin Calcium 40 MG Tablet PO (21:50)
[2023-11-10 22:03] LABS: Bedside Glucose 201 mg/dL (74-106)
[2023-11-11 05:09] VITALS: BMI 23.1
[2023-11-11 06:15] LABS: Bedside Glucose 230 mg/dL (74-106)
[2023-11-11] MEDS: HYDROcodone Bitartrate/Apap 5/325 Tablet PO ×2 (07:47→13:57)
[2023-11-11] MEDS: Aspirin E.C. 81 MG Tablet PO (07:49)
[2023-11-11] MEDS: Insulin Lispro 100 UNIT/ML INSULN.PEN 7 UNIT SC ×2 (07:49→12:00)
[2023-11-11] MEDS: Spironolactone 25 MG Tablet PO (07:50)
[2023-11-11] MEDS: Enoxaparin 40 MG/0.4 ML Syringe SC (07:50)
[2023-11-11] MEDS: Potassium Chloride Oral Tablet 20 MEQ 40 MEQ PO (07:50)
[2023-11-11] MEDS: Propranolol LA 80 MG Capsule PO ×2 (07:51→21:24)
[2023-11-11] MEDS: Furosemide 40 MG Tablet 60 MG PO (07:51)
[2023-11-11] MEDS: Citalopram 20 MG Tablet PO (07:51)
[2023-11-11] MEDS: Cholecalciferol (Vit D3) 125 MCG CAPSULE (5,000 UNITS) PO (07:52)
[2023-11-11] MEDS: Famotidine 20 MG Tablet PO (07:52)
[2023-11-11] MEDS: Lisinopril 10 MG Tablet PO (07:52)
[2023-11-11] MEDS: Glycerin/Hypromellose/PEG400 15 ml Bottle 1 DRP EACH EYE ×3 (08:00→21:23)
[2023-11-11] MEDS: Menthol/Lanolin/Calamine/Znox 113 GM Tube 1 APPLIC TOPICAL ×2 (08:00→21:29)
--- NOTE | 2023-11-11 09:50 | CASEMGMT ---
Social Work IDT met with patient, daughter, son at bedside to complete care plan. Discussed patient progress with therapy (PT/OT), dietary, and activities. Patient has goals to independently complete ADL with assistance for motor skills for feeding. Patient resides at [facility] with feeding assistance provided by home staff. Family would like to schedule training with therapy to obtain assistance for car transfers. SW educated patient and family on [employer] insurance medicare; next review date 11/16. Patient and family discussed concerns for meals in the [place]. SW provided information for home meal delivery services. Patient goal is to return to [facility]. SW discussed home health care services with patient and family. Patient family would like home health care services, if recommended. Social Work will continue to follow for home health care services. JOSE ARMANDO Lamb.
[2023-11-11 11:32] LABS: Bedside Glucose 226 mg/dL (74-106)
[2023-11-11] MEDS: Insulin Glargine-YFGN 100 UNIT/ML Pen 25 UNIT SC (11:59)
[2023-11-11 16:00] VITALS: BP 105/35; PULSE 53; RESP 14; TEMP 36.5; O2SAT 94
[2023-11-11] MEDS: Carbidopa/Levodopa 25/100 Tablet PO (17:21)
[2023-11-11 17:23] LABS: Bedside Glucose 72 mg/dL (74-106)
[2023-11-11] MEDS: Furosemide 40 MG Tablet PO (17:23)
--- NOTE | 2023-11-11 18:08 | CASEMGMT ---
Social Work SW met with patient at bedside to complete MDS. Patient completed BIM () and PhQ (). Patient denies any concerns at this time. SW will continue to follow to assist with discharge planning. JOSE ARMANDO Lamb
--- NOTE | 2023-11-11 18:35 | NURSING ---
Daughter comes to this nurse concerned over patient's tremors that have been diagnosed as essential tremors. She reports ER doctor recommended patient trial Sinemet to see if this helps tremors and asks that Dr. Olson be made aware. She reports patient tried Flexeril and became too lethargic and Mirapex and became confused. Dr. Olson made aware and Sinemet started tonight. Dr. Olson had also increased Glargine to 25 units and BS at dinner 72 and patient refuses dinner Humalog coverage.
[2023-11-11 19:55] LABS: Bedside Glucose 147 mg/dL (74-106)
[2023-11-11] MEDS: Atorvastatin Calcium 40 MG Tablet PO (21:24)
[2023-11-11] MEDS: Gabapentin 400 MG Capsule PO (21:26)
[2023-11-11 21:47] LABS: Bedside Glucose 126 mg/dL (74-106)
[2023-11-12 05:39] VITALS: BMI 22.3
[2023-11-12 06:31] LABS: Bedside Glucose 111 mg/dL (74-106)
[2023-11-12] MEDS: Insulin Lispro 100 UNIT/ML INSULN.PEN 7 UNIT SC ×3 (08:11→18:11)
[2023-11-12] MEDS: Aspirin E.C. 81 MG Tablet PO (08:12)
[2023-11-12] MEDS: Potassium Chloride Oral Tablet 20 MEQ 40 MEQ PO (08:12)
[2023-11-12] MEDS: Spironolactone 25 MG Tablet PO (08:12)
[2023-11-12] MEDS: Enoxaparin 40 MG/0.4 ML Syringe SC (08:13)
[2023-11-12] MEDS: Lisinopril 10 MG Tablet PO (08:13)
[2023-11-12] MEDS: Furosemide 40 MG Tablet 60 MG PO (08:13)
[2023-11-12] MEDS: Famotidine 20 MG Tablet PO (08:13)
[2023-11-12] MEDS: Cholecalciferol (Vit D3) 125 MCG CAPSULE (5,000 UNITS) PO (08:13)
[2023-11-12] MEDS: Citalopram 20 MG Tablet PO (08:14)
[2023-11-12] MEDS: Propranolol LA 80 MG Capsule PO ×2 (08:14→23:24)
[2023-11-12] MEDS: Glycerin/Hypromellose/PEG400 15 ml Bottle 1 DRP EACH EYE ×3 (08:15→23:21)
[2023-11-12] MEDS: Menthol/Lanolin/Calamine/Znox 113 GM Tube 1 APPLIC TOPICAL ×2 (08:15→23:22)
[2023-11-12] MEDS: Carbidopa/Levodopa 25/100 Tablet PO ×3 (08:15→16:18)
[2023-11-12 08:28] VITALS: BP 129/43; PULSE 65
[2023-11-12] MEDS: Insulin Glargine-YFGN 100 UNIT/ML Pen 25 UNIT SC (11:50)
[2023-11-12] MEDS: Acetaminophen 500 MG Tablet 1000 MG PO (12:01)
[2023-11-12 12:14] LABS: Bedside Glucose 253 mg/dL (74-106)
[2023-11-12 13:51] VITALS: BP 110/40; PULSE 59; RESP 16; TEMP 36.6; O2SAT 97
[2023-11-12 16:28] LABS: Mucous, Urine 0 SEEN /hpf (<or=2+); Squamous Epithelial Cells - UA 0 SEEN /hpf (0-5)
[2023-11-12 16:42] LABS: Color, Urine Yellow (Yellow); Glucose, Dipstick Normal (Normal); Ketone-Dipstick Negative (Negative); Leukocyte Esterase-Dipstick 100 /ul (Negative); Nitrite-Dipstick Negative (Negative); Occult Blood-Urine 250 /ul (Negative); Protein-Dipstick 15 mg/dl (Negative); Urine Bilirubin Dipstick Negative (Negative); Urine Clarity Clear (Clear); Urine Urobilinogen Normal (Normal)
[2023-11-12 16:48] LABS: Bacteria 1+ /hpf (None Seen); Red Blood Cells-Urine 0-5 SEEN /hpf (0-5); White Blood Cells 0-5 SEEN /hpf (0-5)
[2023-11-12 16:58] LABS: Bedside Glucose 79 mg/dL (74-106)
[2023-11-12 19:50] LABS: Bedside Glucose 113 mg/dL (74-106)
[2023-11-12 21:54] LABS: Bedside Glucose 123 mg/dL (74-106)
[2023-11-12] MEDS: Gabapentin 400 MG Capsule PO (23:23)
[2023-11-12] MEDS: Atorvastatin Calcium 40 MG Tablet PO (23:24)
--- NOTE | 2023-11-13 00:01 | NURSING ---
Raisin bran w/ 1% milk given for hs snack per pt request. Fed per this nurse d/t course tremors.
[2023-11-13 05:47] VITALS: BMI 22.1
[2023-11-13 06:05] LABS: Absolute Neutrophil Count 7.1 X10^3/uL (2.0-7.7); Basophil# 0.07 X10^3/uL; Basophil% 0.7 % (0-1); Eosinophil# 0.21 X10^3/uL; Hematocrit 43.2 % (40-54); Lymphocyte % 14.3 % (19-41); Mean Corp Hgb Conc 30.1 g/dL (32-36); Mean Corpuscular Hgb 28.1 pg (27.0-32.0); Mean Corpuscular Volume 93.5 fL (80-94); Mean Platelet Vol. 11.4 fl (6.2-12.0); Monocyte# 1.53 X10^3/uL; Monocyte% 14.6 % (0-10); NRBC Flagged by Analyzer 0 % (0-5); Neutrophil # 7.14 X10^3/uL (2.7-7.7); POSITIVE DIFFERENTIAL YES; Platelet Count 243 K/mm3 (150-450); RBC Distribution Width CV 14.2 % (11.6-14.6); RBC Distribution Width SD 48.5 fl (35.1-43.9); Red Blood Count 4.62 M/mm3 (4.6-6.2); White Blood Count 10.5 K/mm3 (4.4-11.0)
[2023-11-13 06:24] LABS: Differential Indicated SCAN CRITERIA MET
[2023-11-13 06:29] LABS: Bedside Glucose 210 mg/dL (74-106)
[2023-11-13 06:35] LABS: Anion Gap 5 (5-15); BUN 29 mg/dL (7-18); BUN/Creat Ratio 22.5 RATIO (10-20); Calcium,Total 9.3 mg/dL (8.5-10.1); Chloride 104 mmol/L (98-107); Creatinine, Serum 1.29 mg/dL (0.70-1.30); EST Glomerular Filtration Rate 57 mL/min (>60); Est Glom Filt Rate - Afr Amer 69 mL/min (>60); Estimated Creatinine Clearance 41.81 ml/min; Glucose 213 mg/dL (74-106); Potassium 4.8 mmol/L (3.5-5.1); Sodium Level 134 mmol/L (136-145)
[2023-11-13] MEDS: Carbidopa/Levodopa 25/100 Tablet PO ×3 (07:51→17:36)
--- NOTE | 2023-11-13 08:15 | NURSING ---
Candy Puller Note; MDS for 11/12/2023 Complete
[2023-11-13 08:19] LABS: Differential Comment SCANNED
[2023-11-13] MEDS: Insulin Lispro 100 UNIT/ML INSULN.PEN 7 UNIT SC ×3 (08:39→17:36)
[2023-11-13] MEDS: Enoxaparin 40 MG/0.4 ML Syringe SC (08:40)
[2023-11-13] MEDS: Spironolactone 25 MG Tablet PO (08:40)
[2023-11-13] MEDS: Glycerin/Hypromellose/PEG400 15 ml Bottle 1 DRP EACH EYE ×3 (08:40→22:37)
[2023-11-13] MEDS: Potassium Chloride Oral Tablet 20 MEQ 40 MEQ PO (08:40)
[2023-11-13] MEDS: Aspirin E.C. 81 MG Tablet PO (08:40)
[2023-11-13] MEDS: Furosemide 40 MG Tablet PO (08:41)
[2023-11-13] MEDS: Lisinopril 10 MG Tablet PO (08:41)
[2023-11-13] MEDS: Famotidine 20 MG Tablet PO (08:41)
[2023-11-13] MEDS: Propranolol LA 80 MG Capsule PO ×2 (08:41→22:37)
[2023-11-13] MEDS: Cholecalciferol (Vit D3) 125 MCG CAPSULE (5,000 UNITS) PO (08:41)
[2023-11-13] MEDS: Citalopram 20 MG Tablet PO (08:41)
[2023-11-13] MEDS: Menthol/Lanolin/Calamine/Znox 113 GM Tube 1 APPLIC TOPICAL (08:49)
[2023-11-13] MEDS: Insulin Glargine-YFGN 100 UNIT/ML Pen 25 UNIT SC (11:18)
[2023-11-13] MEDS: Tuberculin,Purif.prot.deriv. 50 TU/ML Vial 0.1 ML ID (11:19)
[2023-11-13 11:23] LABS: Bedside Glucose 328 mg/dL (74-106)
--- NOTE | 2023-11-13 14:25 | CASEMGMT ---
Social Work SILVA received a call from [facility] , Pantograph Transferrer, Olimpia requesting for discharge disposition. SILVA provided information regarding tentative discharge plan for home with home health care services. Patient is currently involved with [facility] Waiver program. Olimpia requested SILVA fax discharge paperwork [phone] JOSE ARMANDO Lamb
[2023-11-13 16:00] VITALS: BP 132/43; PULSE 61; RESP 19; TEMP 35.9; O2SAT 97
[2023-11-13 16:51] LABS: Bedside Glucose 166 mg/dL (74-106)
--- NOTE | 2023-11-13 18:28 | PCA ---
Kieran was upset today saying alot of things to the Nurse & the FITNESS MANAGEMENT DIRECTOR. James said he was put on the back burner today waiting & waiting for us to come in his room & never returned. James was in the dining room this morning as I was feeding him his breakfast. At lunch time the other FITNESS MANAGEMENT DIRECTOR went in to feed James, but James said he was not hungry because he was not feeling well, so he refused lunch. About 2:10 James called out & said something, but I could not understand what he said. I went to his room & he asked for chocolate ice cream. I told James it would be a little bit before we could come back in to give him his ice cream. I got a cup of ice cream out of the freezer with a spoon & sat it on the desk. I told the other FITNESS MANAGEMENT DIRECTOR that it was frozen solid & she said she would give it to him. At dinner time the FITNESS MANAGEMENT DIRECTOR dropped his tray off in his room & told him she would be back to feed him. (We had other trays to pass out) His tray was passed to his room at 5:50. The Nurse went to his room about 5:55-6:00 to see if he wanted to be fed & he said no that he had his family bringing him food. I reported this to the Nurse. Nurse was aware because the patient called his daughter to complain. James said he was put on the back burner all day long today. I told him that was not true & that it was just me & 1 other FITNESS MANAGEMENT DIRECTOR & that we were doing the best we can to accomodate everyone.
[2023-11-13 19:01] LABS: Bedside Glucose 50 mg/dL (74-106)
[2023-11-13 19:31] LABS: Bedside Glucose 48 mg/dL (74-106)
--- NOTE | 2023-11-13 19:34 | NURSING ---
Patient's blood sugar rechecked, currently 64. Will recheck.
[2023-11-13 19:49] LABS: Bedside Glucose 64 mg/dL (74-106)
[2023-11-13 19:52] VITALS: RESP 16
[2023-11-13 21:40] LABS: Bedside Glucose 193 mg/dL (74-106)
[2023-11-13] MEDS: Gabapentin 400 MG Capsule PO (22:37)
[2023-11-13] MEDS: Atorvastatin Calcium 40 MG Tablet PO (22:37)
--- NOTE | 2023-11-13 23:19 | NURSING ---
Blood sugar at HS 193. Patient resting in bed.
[2023-11-14 06:00] VITALS: BMI 22.3
[2023-11-14] MEDS: Carbidopa/Levodopa 25/100 Tablet PO ×3 (06:10→18:05)
[2023-11-14 07:06] LABS: Bedside Glucose 337 mg/dL (74-106)
[2023-11-14] MEDS: Potassium Chloride Oral Tablet 20 MEQ 40 MEQ PO (09:04)
[2023-11-14] MEDS: Insulin Lispro 100 UNIT/ML INSULN.PEN 7 UNIT SC ×3 (09:04→18:06)
[2023-11-14] MEDS: Aspirin E.C. 81 MG Tablet PO (09:04)
[2023-11-14] MEDS: Spironolactone 25 MG Tablet PO (09:04)
[2023-11-14] MEDS: Glycerin/Hypromellose/PEG400 15 ml Bottle 1 DRP EACH EYE ×3 (09:04→21:28)
[2023-11-14] MEDS: Furosemide 40 MG Tablet PO (09:05)
[2023-11-14] MEDS: Propranolol LA 80 MG Capsule PO ×2 (09:05→21:29)
[2023-11-14] MEDS: Famotidine 20 MG Tablet PO (09:05)
[2023-11-14] MEDS: Citalopram 20 MG Tablet PO (09:05)
[2023-11-14] MEDS: Menthol/Lanolin/Calamine/Znox 113 GM Tube 1 APPLIC TOPICAL ×2 (09:05→21:42)
[2023-11-14] MEDS: Lisinopril 10 MG Tablet PO (09:07)
[2023-11-14] MEDS: Cholecalciferol (Vit D3) 125 MCG CAPSULE (5,000 UNITS) PO (09:07)
[2023-11-14 10:00] VITALS: O2SAT 99
[2023-11-14] MEDS: Nitrofurantoin Macrocrystals 100 MG Capsule PO ×2 (12:53→21:28)
[2023-11-14] MEDS: Insulin Glargine-YFGN 100 UNIT/ML Pen 25 UNIT SC (12:53)
[2023-11-14 12:55] LABS: Bedside Glucose 233 mg/dL (74-106)
[2023-11-14 16:00] VITALS: BP 143/50; PULSE 61; RESP 16; TEMP 36.6; O2SAT 97
[2023-11-14 17:12] LABS: Bedside Glucose 111 mg/dL (74-106)
[2023-11-14] MEDS: Atorvastatin Calcium 40 MG Tablet PO (21:28)
[2023-11-14] MEDS: Gabapentin 400 MG Capsule PO (21:28)
[2023-11-14 21:51] LABS: Bedside Glucose 75 mg/dL (74-106)
[2023-11-15 05:26] VITALS: BMI 22.1
[2023-11-15 06:19] LABS: Bedside Glucose 145 mg/dL (74-106)
[2023-11-15 08:05] VITALS: O2SAT 97
[2023-11-15 08:59] VITALS: BP 141/50; PULSE 63; RESP 16; TEMP 36.4; O2SAT 99
[2023-11-15] MEDS: Insulin Lispro 100 UNIT/ML INSULN.PEN 7 UNIT SC ×3 (09:01→17:27)
[2023-11-15] MEDS: Aspirin E.C. 81 MG Tablet PO (09:02)
[2023-11-15] MEDS: Carbidopa/Levodopa 25/100 Tablet PO ×3 (09:02→17:27)
[2023-11-15] MEDS: Spironolactone 25 MG Tablet PO (09:02)
[2023-11-15] MEDS: Propranolol LA 80 MG Capsule PO ×2 (09:02→22:05)
[2023-11-15] MEDS: Nitrofurantoin Macrocrystals 100 MG Capsule PO ×2 (09:02→21:58)
[2023-11-15] MEDS: Potassium Chloride Oral Tablet 20 MEQ 40 MEQ PO (09:02)
[2023-11-15] MEDS: Furosemide 40 MG Tablet PO (09:02)
[2023-11-15] MEDS: Citalopram 20 MG Tablet PO (09:02)
[2023-11-15] MEDS: Cholecalciferol (Vit D3) 125 MCG CAPSULE (5,000 UNITS) PO (09:03)
[2023-11-15] MEDS: Famotidine 20 MG Tablet PO (09:03)
[2023-11-15] MEDS: Glycerin/Hypromellose/PEG400 15 ml Bottle 1 DRP EACH EYE ×3 (09:03→21:58)
[2023-11-15] MEDS: Lisinopril 10 MG Tablet PO (09:03)
[2023-11-15] MEDS: Menthol/Lanolin/Calamine/Znox 113 GM Tube 1 APPLIC TOPICAL ×2 (09:07→22:10)
[2023-11-15 11:20] LABS: Bedside Glucose 302 mg/dL (74-106)
[2023-11-15] MEDS: Insulin Glargine-YFGN 100 UNIT/ML Pen 25 UNIT SC (12:56)
[2023-11-15 14:56] VITALS: PULSE 55; RESP 16; O2SAT 97
[2023-11-15 16:53] LABS: Bedside Glucose 167 mg/dL (74-106)
[2023-11-15 21:28] LABS: Bedside Glucose 283 mg/dL (74-106)
[2023-11-15] MEDS: Atorvastatin Calcium 40 MG Tablet PO (21:59)
[2023-11-15] MEDS: Gabapentin 400 MG Capsule PO (22:07)
[2023-11-16 04:58] VITALS: BMI 24.3
[2023-11-16 06:28] LABS: Bedside Glucose 167 mg/dL (74-106)
[2023-11-16 10:00] VITALS: PULSE 58; RESP 16
[2023-11-16] MEDS: Glycerin/Hypromellose/PEG400 15 ml Bottle 1 DRP EACH EYE ×3 (10:46→22:33)
[2023-11-16] MEDS: Aspirin E.C. 81 MG Tablet PO (10:47)
[2023-11-16] MEDS: Potassium Chloride Oral Tablet 20 MEQ 40 MEQ PO (10:47)
[2023-11-16] MEDS: Spironolactone 25 MG Tablet PO (10:49)
[2023-11-16] MEDS: Citalopram 20 MG Tablet PO (10:50)
[2023-11-16] MEDS: Propranolol LA 80 MG Capsule PO ×2 (10:50→22:32)
[2023-11-16] MEDS: Menthol/Lanolin/Calamine/Znox 113 GM Tube 1 APPLIC TOPICAL ×2 (10:50→22:41)
[2023-11-16] MEDS: Furosemide 40 MG Tablet PO (10:50)
[2023-11-16] MEDS: Famotidine 20 MG Tablet PO (10:51)
[2023-11-16] MEDS: Lisinopril 10 MG Tablet PO (10:51)
[2023-11-16] MEDS: Nitrofurantoin Macrocrystals 100 MG Capsule PO ×2 (10:51→22:32)
[2023-11-16] MEDS: Cholecalciferol (Vit D3) 125 MCG CAPSULE (5,000 UNITS) PO (10:51)
[2023-11-16] MEDS: Carbidopa/Levodopa 25/100 Tablet PO ×2 (10:52→18:15)
[2023-11-16 11:11] LABS: Bedside Glucose 186 mg/dL (74-106)
[2023-11-16] MEDS: Insulin Lispro 100 UNIT/ML INSULN.PEN 7 UNIT SC ×2 (12:11→18:17)
[2023-11-16] MEDS: Insulin Glargine-YFGN 100 UNIT/ML Pen 25 UNIT SC (12:12)
[2023-11-16 15:48] VITALS: BP 121/53; PULSE 59; RESP 16; TEMP 36.6; O2SAT 97
[2023-11-16 17:16] LABS: Bedside Glucose 167 mg/dL (74-106)
[2023-11-16 21:51] LABS: Bedside Glucose 157 mg/dL (74-106)
[2023-11-16] MEDS: Gabapentin 400 MG Capsule PO (22:32)
[2023-11-16] MEDS: Atorvastatin Calcium 40 MG Tablet PO (22:32)
[2023-11-17 06:00] VITALS: BMI 22.0
[2023-11-17] MEDS: Carbidopa/Levodopa 25/100 Tablet PO ×3 (06:41→17:39)
[2023-11-17 06:58] VITALS: RESP 16
[2023-11-17 07:16] LABS: Bedside Glucose 88 mg/dL (74-106)
[2023-11-17 08:00] VITALS: BMI 22.0
[2023-11-17] MEDS: Famotidine 20 MG Tablet PO (08:01)
[2023-11-17] MEDS: Citalopram 20 MG Tablet PO (08:01)
[2023-11-17] MEDS: Aspirin E.C. 81 MG Tablet PO (08:01)
[2023-11-17] MEDS: Lisinopril 10 MG Tablet PO (08:02)
[2023-11-17] MEDS: Propranolol LA 80 MG Capsule PO ×2 (08:02→21:24)
[2023-11-17] MEDS: Furosemide 40 MG Tablet PO (08:02)
[2023-11-17] MEDS: Nitrofurantoin Macrocrystals 100 MG Capsule PO ×2 (08:02→21:20)
[2023-11-17] MEDS: Cholecalciferol (Vit D3) 125 MCG CAPSULE (5,000 UNITS) PO (08:02)
[2023-11-17] MEDS: Potassium Chloride Oral Tablet 20 MEQ 40 MEQ PO (08:02)
[2023-11-17] MEDS: Glycerin/Hypromellose/PEG400 15 ml Bottle 1 DRP EACH EYE ×3 (08:03→21:19)
[2023-11-17] MEDS: Menthol/Lanolin/Calamine/Znox 113 GM Tube 1 APPLIC TOPICAL ×2 (08:03→21:27)
[2023-11-17] MEDS: Insulin Lispro 100 UNIT/ML INSULN.PEN 7 UNIT SC ×3 (08:06→17:39)
[2023-11-17 08:30] VITALS: BP 117/50; PULSE 52; RESP 16; TEMP 35.7; O2SAT 98
--- NOTE | 2023-11-17 10:52 | MDS.RN ---
Information for the MDS was obtained from review of the clinical record, interview of resident, staff, and direct observation of resident?s care.
[2023-11-17] MEDS: Spironolactone 25 MG Tablet PO (11:26)
[2023-11-17 11:29] VITALS: BP 115/46
[2023-11-17 11:29] LABS: Bedside Glucose 204 mg/dL (74-106)
[2023-11-17] MEDS: Insulin Glargine-YFGN 100 UNIT/ML Pen 25 UNIT SC (11:55)
--- NOTE | 2023-11-17 16:34 | CHAPLAIN ---
Type of Pastoral Visit ___ Initial Visit _x__ Follow-up Visit ___ On-call Visit ___ General Patient Visit ___ Spiritual Assessment ___ Family Conference ___ Bereavement ___ Rapid Response ___ Code Blue ___ Other (describe below) Pastoral Care Referral From _x__ Patient ___ Family ___ Nurse ___ Physician ___ Supervisor Furnace Process ___ Commercial Banker ___ Other (describe below) Sacrament/Intervention _x__ Active listening ___ Anointing ___ Christian ___ Bereavement ___ Communion ___ Meghan exploration ___ _x__ Life review _x__ Prayer ___ Reconciliation ___ Sacrament of Sick _x__ Supportive presence ___ Wedding ___ Other (describe below) Pastoral Comments this patient had been seen initially in the PCU and this follow up finds him in better situation; pt states that reason for his pain was discovered and managed; pt is now regaining strength with goal to go home; pt is thankful for the care, therapy, and food this time; pt welcomes visit and prayer
[2023-11-17 16:55] LABS: Bedside Glucose 120 mg/dL (74-106)
[2023-11-17] MEDS: Atorvastatin Calcium 40 MG Tablet PO (21:20)
[2023-11-17] MEDS: Gabapentin 400 MG Capsule PO (21:24)
[2023-11-17 22:00] LABS: Bedside Glucose 262 mg/dL (74-106)
[2023-11-18 05:06] VITALS: BMI 22.1
[2023-11-18 06:24] LABS: Bedside Glucose 149 mg/dL (74-106)
[2023-11-18] MEDS: Aspirin E.C. 81 MG Tablet PO (08:25)
[2023-11-18] MEDS: Potassium Chloride Oral Tablet 20 MEQ 40 MEQ PO (08:25)
[2023-11-18] MEDS: Carbidopa/Levodopa 25/100 Tablet PO ×2 (08:25→13:02)
[2023-11-18] MEDS: Insulin Lispro 100 UNIT/ML INSULN.PEN 7 UNIT SC ×2 (08:25→18:03)
[2023-11-18] MEDS: Lisinopril 10 MG Tablet PO (08:26)
[2023-11-18] MEDS: Glycerin/Hypromellose/PEG400 15 ml Bottle 1 DRP EACH EYE ×3 (08:26→22:12)
[2023-11-18] MEDS: Famotidine 20 MG Tablet PO (08:26)
[2023-11-18] MEDS: Cholecalciferol (Vit D3) 125 MCG CAPSULE (5,000 UNITS) PO (08:27)
[2023-11-18] MEDS: Furosemide 40 MG Tablet PO (08:27)
[2023-11-18] MEDS: Citalopram 20 MG Tablet PO (08:27)
[2023-11-18] MEDS: Nitrofurantoin Macrocrystals 100 MG Capsule PO ×2 (08:27→22:12)
[2023-11-18] MEDS: Menthol/Lanolin/Calamine/Znox 113 GM Tube 1 APPLIC TOPICAL ×2 (08:28→22:15)
[2023-11-18 08:34] VITALS: BP 104/44
[2023-11-18 10:44] VITALS: BP 93/33; PULSE 53
[2023-11-18 11:53] LABS: Bedside Glucose 71 mg/dL (74-106)
--- NOTE | 2023-11-18 12:11 | NURSING ---
Addendum entered by Susan Solares 11/18/23 12:58: Dr. Olson Notified N.O. to give 12 units of Glargine. Original Note: Pt Blood Sugar 71 pt given Juice and Blood sugar rechecked 84.
[2023-11-18 12:20] LABS: Bedside Glucose 84 mg/dL (74-106)
[2023-11-18] MEDS: Insulin Glargine-YFGN 100 UNIT/ML Pen 25 UNIT SC (13:00)
[2023-11-18 13:09] VITALS: BP 133/49; PULSE 59; RESP 18; TEMP 36.2; O2SAT 98
[2023-11-18 17:12] LABS: Bedside Glucose 207 mg/dL (74-106)
[2023-11-18] MEDS: Atorvastatin Calcium 40 MG Tablet PO (22:12)
[2023-11-18] MEDS: Gabapentin 400 MG Capsule PO (22:12)
[2023-11-18] MEDS: Propranolol LA 80 MG Capsule PO (22:13)
[2023-11-18 22:24] LABS: Bedside Glucose 104 mg/dL (74-106)
[2023-11-19 05:48] VITALS: BMI 21.9
--- NOTE | 2023-11-19 06:15 | NURSING ---
While passing HS medications this nurse was notified by ACADEMIC SUCCESS COORDINATOR that patient had self transferred to bathroom and back to chair. Patient states that he waited for 25 minutes and was not going to wait another 45 minutes for help. This nurse educated patient on saftey awareness and stated that due to the extreme of his tremors he is not safe at this time to self transfer. This nurse assured him that when he puts call light on we try our best to be there in a timely manner, but to be patient. Patient voiced an understanding.
[2023-11-19 06:41] LABS: Bedside Glucose 122 mg/dL (74-106)
[2023-11-19] MEDS: Insulin Lispro 100 UNIT/ML INSULN.PEN 7 UNIT SC ×2 (08:29→12:02)
[2023-11-19] MEDS: Cholecalciferol (Vit D3) 125 MCG CAPSULE (5,000 UNITS) PO (08:29)
[2023-11-19] MEDS: Nitrofurantoin Macrocrystals 100 MG Capsule PO ×2 (08:29→22:07)
[2023-11-19] MEDS: Citalopram 20 MG Tablet PO (08:29)
[2023-11-19] MEDS: Potassium Chloride Oral Tablet 20 MEQ 40 MEQ PO (08:29)
[2023-11-19] MEDS: Famotidine 20 MG Tablet PO (08:29)
[2023-11-19] MEDS: Aspirin E.C. 81 MG Tablet PO (08:29)
[2023-11-19] MEDS: Glycerin/Hypromellose/PEG400 15 ml Bottle 1 DRP EACH EYE ×3 (08:30→22:08)
[2023-11-19] MEDS: Menthol/Lanolin/Calamine/Znox 113 GM Tube 1 APPLIC TOPICAL ×2 (11:13→22:08)
[2023-11-19 11:33] VITALS: BP 113/40; PULSE 54
--- NOTE | 2023-11-19 11:40 | NURSING ---
Pt Bp 114/[address] Olson updated. N.O. received to hold BP medications.
[2023-11-19 11:47] VITALS: PULSE 54; O2SAT 98
[2023-11-19] MEDS: Insulin Glargine-YFGN 100 UNIT/ML Pen 20 UNIT SC (12:02)
[2023-11-19 15:44] VITALS: BP 120/38; PULSE 59; RESP 16; TEMP 36.5; O2SAT 95
[2023-11-19 17:01] LABS: Bedside Glucose 87 mg/dL (74-106)
--- NOTE | 2023-11-19 17:32 | CASEMGMT ---
Social Work SILVA received [employer] Medicare insurance Notice of Medicare Non-Coverage for current [facility] Facility Coverage end date: 11/21/2023 SW met with patient at bedside to notify of [facility]. Patient was notified of his Medicare Rights to Discharge. Patient informed SW that he would like to discharge home on Thursday, 11/20. The patient informed SW that he feels like he has progressed enough with therapy to return home. Patient anticipates discharge home to [facility] with Home Health care services. Patient was unable to sign documents due to tremors. Patient requested to SW contact his daughter, Risa to obtain signature. SW contacted patient's daughter, Risa via phone to notify of discharge. SILVA informed Risa of patient's Medicare right to appeal discharge, should they not agree via [employer]. Risa informed SILVA that she has been in touch with therapy services and agree with discharge at this time. Risa would like to transport patient home on 11/21/2023. Risa requested home health care services for home. SILVA provided Risa with electronic list for home health care in preferred geographics area, medical need, and insurance preference via [employer] Guide. Patient will require Home health PT/OT services. SILVA notified Physician, Dr. Olson Patient was provided copy of [facility] at bedside. SILVA will continue to follow for home health care provider choice. Discharge: 11/21/2023- Home Health PT/OT JOSE ARMANDO Lamb
[2023-11-19 17:37] LABS: Bedside Glucose 174 mg/dL (74-106)
--- NOTE | 2023-11-19 20:01 | DS.PCM_ITS ---
Providers Date of Admission: 11/05/23 Primary Care Physician: Dr. Kyle Aguila MD Reason For Visit: SOB Diagnosis Discharge Diagnosis (1) Debility: Status: Acute Code(s): R53.81 - Other malaise (2) Weakness: Status: Acute Code(s): R53.1 - Weakness (3) Acute respiratory failure with hypoxia: Status: Acute Code(s): J96.01 - Acute respiratory failure with hypoxia (4) Acute on chronic heart failure with preserved ejection fraction (HFpEF): Status: Acute Code(s): I50.33 - Acute on chronic diastolic (congestive) heart failure (5) Low back pain: Status: Acute Code(s): M54.50 - Low back pain, unspecified (6) Essential tremor: Status: Chronic Code(s): G25.0 - Essential tremor (7) Diabetic neuropathy: Status: Acute Code(s): E11.40 - Type 2 diabetes mellitus with diabetic neuropathy, unspecified (8) Coronary artery disease: Status: Acute Code(s): I25.10 - Atherosclerotic heart disease of [place] coronary artery without angina pectoris (9) GERD (gastroesophageal reflux disease): Status: Acute Code(s): K21.9 - Gastro-esophageal reflux disease without esophagitis (10) Diabetes mellitus: Status: Acute Code(s): E11.9 - Type 2 diabetes mellitus without complications Plan 78 year old male with below past medical history hospitalized for acute respiratory failure with hypoxia 2/2 acute on chronic HFpEF, complicated by low back pain, admitted to TCU with debility, here for rehabilitation, strengthening, prior to discharge home with [facility] * Debility - PT/OT. * Pain - Tylenol 1000mg q6 prn pain (1-5), [place] 5/325mg 2 tablets q6 prn pain (6-10). * Bowel - senna/colace 2 tablets bid, Dulcolax 10mg pr daily prn. * Adult immunization - Administer pneumonia vaccine, covid vaccine, flu vaccine as appropriate. * DVT prophylaxis - Lovenox 40mg sc daily. * Shortness of breath - Albuterol 2.5mg neb q4h prn. * Coronary artery disease - Propranolol 80mg bid, Lisinopril 5mg daily, Aspirin 81mg daily. * Hyperlipidemia - Atorvastatin 40mg qhs. * GERD - Famotidine 20mg daily, TUMS 500mg tid prn. * Vitamin D deficiency - D3 125mcg daily. * Depression - Citalopram 20mg daily, stable chronic intermission coordinator use, GDR not recommended. * HFpEF - Propranolol 80mg bid, Lisinopril 5mg daily, Furosemide 60mg, 40mg, Aldactone 25mg daily. * Diabetic polyneuropathy - Gabapentin 400mg qhs. * Diabetes Mellitus II - Glargine 15 units lunch. * Nausea - Zofran odt 4mg q6 prn. * Dry Eyes - Artificial tears 1gtt ou tid. * Hypokalemia - KCL 40meq daily. Medications at Discharge Home Medications aspirin 81 mg tablet,delayed release (Adult Low Dose Aspirin) 81 mg PO QDAY preventative 08/19/17 atorvastatin 40 mg tablet 40 mg PO QHS cholesterol 08/19/17 calcium carbonate (Tums Ultra) 800 mg PO TID PRN Acid Reflux 11/29/20 cholecalciferol (vitamin D3) 125 mcg (5,000 unit) capsule 125 mcg PO DAILY vitamin 11/29/20 famotidine 20 mg tablet 20 mg PO DAILY stomach 11/29/20 gabapentin 400 mg capsule 400 mg PO QHS neuropathy 11/29/20 citalopram 20 mg tablet (Celexa) 20 mg PO DAILY anxiety 11/01/23 potassium chloride 20 mEq tablet,extended release 40 meq PO DAILY potassium 11/01/23 hydrocodone-acetaminophen 5-325mg 5mg-325mg 1 - 2 tab PO Q6H PRN PRN Pain Score 1-10 4 days #10 tabs 11/05/23 insulin glargine-yfgn 100 unit/mL (3 mL) subcutaneous pen 15 unit (0.15 mL) subcut LUNCH Diabetes #0 mL 11/05/23 peg [id number] 1 %-0.2 %-0.2 % eye drops (Artificial Tears ([id number])) 1 drp EACH EYE TID Dry Eyes #0 mL 11/05/23 propranolol 80 mg capsule,24 hr,extended release 80 mg PO BID BP #0 caps 11/05/23 acetaminophen 500 mg tablet 1,000 mg (2 x 500 mg) PO Q6H PRN PRN Pain Score 1-5 #0 tabs 11/19/23 furosemide 40 mg tablet 40 mg PO DAILY #0 tabs 11/19/23 spironolactone 25 mg tablet 12.5 mg (1/2 x 25 mg) PO DAILY #0 tabs 11/19/23 Hospital Course Operations None Procedures None Summary of Care Provided Minutes Spent on Discharge: 35 Hospital Course: 78 year old male with below past medical history hospitalized for acute respiratory failure with hypoxia 2/2 acute on chronic HFpEF, complicated by low back pain, admitted to TCU with debility, here for rehabilitation, strengthening, prior to discharge home with [facility]. Discharge home alone to [facility] 11/21/2023, [facility] PT/OT. Physical Exam Const alert General Appearance: cooperative HEENT normocephalic Eyes PERRL and EOMs intact bilaterally Neck supple, no JVD and no carotid bruits Resp normal respiratory effort, normal air movement and clear to auscultation bilaterally Cardio regular rate and regular rhythm GI normal to inspection, nondistended, normoactive bowel sounds, non-tender and non-distended Extremity normal capillary refill General Extremity: Negative for edema Skin no rashes or lesions noted General Skin Exam: no breakdown Psych affect normal Appearance: appropriate Weight / BMI Weight Weight: 62.097 kg Body Mass Index (BMI) 21.9 ABG / Lab / Microbiology Data 11/13/23 05:35 11/13/23 05:35 Laboratory: Laboratory Results - last 24 hr 11/18/23 22:03: POC Glucose 104 11/19/23 06:10: POC Glucose 122 H 11/19/23 10:29: POC Glucose 174 H 11/19/23 16:42: POC Glucose 87 Microbiology: Microbiology 11/12/23 16:20 Urine, Clean Catch Urine Culture - Final Enterococcus faecalis D/C Instructions Discharge Diet: No restrictions Discharge Activity: Return to Normal Activity, May Shower and Use Walker Weight Bearing Status: Weight bearing as tolerated Call your doctor if you observe: Fever of 101 or Higher, Inability to urinate, Inability to have a bowel movement, Shortness of breath, Dizziness, Fainting spells, Swelling in the ankles, Chest pain and Uncontrolled pain Additional Instructions: Discharge home alone to [facility] 11/21/2023, [facility] PT/OT. Meaningful Use Info Meaningful Use Meaningful Use Diagnoses (Choose all that apply): None applicable Ischemic Stroke Statin Dosing Therapy Reference: STATIN DOSE THERAPY REFERENCE: * Patients > 75 years receive moderate or high dose statin therapy. * Patients 75 years or YOUNGER should receive HIGH intensity statin dose unless contraindicated. You will be required to document reason for non-treatment if statin daily dose does not meet guidelines. HIGH DOSE STATIN THERAPY DAILY Atorvastatin > than or = to 40 mg Rosuvastatin > than or = to 20 mg Amlodipine + Atorvastatin > than or = to 2.5/40 mg Ezetimibe + Simvastatin 10/80 mg Simvastatin 80mg Discharge Plan Admission Admit Date/Time: 11/05/23 17:37 Primary Reason for Your Visit: Debility. Attending Provider: Shelton Olson Chi Primary Care Provider: Kyle Aguila Instructions Additional Instructions / Restrictions: Discharge home alone to [facility] 11/21/2023, [facility] PT/OT. Discharge Orders/Prescriptions Prescriptions: New furosemide 40 mg Tablet 40 mg PO DAILY Qty: 0 0RF acetaminophen 500 mg Tablet 1,000 mg PO Q6H PRN PRN (Reason: Pain Score 1-5) Qty: 0 0RF spironolactone 25 mg Tablet 12.5 mg PO DAILY Qty: 0 0RF Continued atorvastatin 40 mg tablet 40 mg PO QHS aspirin [Adult Low Dose Aspirin] 81 mg tablet,delayed release (DR/EC) 81 mg PO QDAY famotidine 20 mg tablet 20 mg PO DAILY gabapentin 400 mg capsule 400 mg PO QHS cholecalciferol (vitamin D3) 125 mcg (5,000 unit) capsule 125 mcg PO DAILY calcium carbonate [Tums Ultra] 400 mg calcium (1,000 mg) tablet,chewable 800 mg PO TID PRN (Reason: Acid Reflux) potassium chloride 20 mEq tablet extended release 40 meq PO DAILY citalopram [Celexa] 20 mg tablet 20 mg PO DAILY insulin glargine-yfgn 100 unit/mL (3 mL) Insulin Pen 15 unit subcut LUNCH Qty: 0 0RF hydrocodone-acetaminophen 5-325 mg Tablet 1 - 2 tab PO Q6H PRN PRN (Reason: Pain Score 1-10) 4 Days Qty: 10 0RF propranolol 80 mg Capsule,Extended Release 24 Hr 80 mg PO BID Qty: 0 0RF Artificial Tears([id number]) 1-0.2-0.2 % Drops 1 drp EACH EYE TID Qty: 0 0RF Discontinued lisinopril 5 mg tablet 5 mg PO QDAY 30 Days Qty: 30 Patient Comments: acetaminophen 325 mg capsule 650 mg PO Q8H PRN (Reason: Pain) propranolol 60 mg capsule,extended release 24 hr 80 mg PO BID ondansetron HCl 4 mg tablet 4 mg PO Q6H PRN (Reason: nausea) insulin glargine [Lantus Solostar U-100 Insulin] 100 unit/mL (3 mL) insulin pen 40 unit SUBCUT LUNCH spironolactone 25 mg tablet 25 mg PO DAILY polyvinyl alcohol [Artificial Tears (polyvin alc)] 1.4 % drops 1 drp EACH EYE BID albuterol sulfate 2.5 mg /3 mL (0.083 %) Solution For Nebulization 2.5 mg inhalation Q4H PRN PRN (Reason: shortness of breath or wheezing) Qty: 0 0RF spironolactone 25 mg Tablet 25 mg PO DAILY Qty: 0 0RF potassium chloride 20 mEq Tablet,Er Particles/Crystals 40 meq PO BID Qty: 0 0RF lisinopril 5 mg Tablet 5 mg PO DAILY Qty: 0 0RF ondansetron 4 mg Tablet,Disintegrating 4 mg PO Q6H PRN PRN (Reason: Nausea) Qty: 0 0RF furosemide [Lasix] 40 mg tablet 40 mg PO UD Qty: 1 0RF Rx Instructions: 60 mg QAM, 40 mg Q 5 PM daily Referrals / Follow Up: Kyle Aguila MD [Primary Care Provider] - Disposition Disposition (needs filled in before D/C Order can be placed): Home Health Service
[2023-11-19 21:33] LABS: Bedside Glucose 189 mg/dL (74-106)
[2023-11-19 22:00] VITALS: BP 128/54; PULSE 64
[2023-11-19] MEDS: Atorvastatin Calcium 40 MG Tablet PO (22:07)
[2023-11-19] MEDS: Gabapentin 400 MG Capsule PO (22:07)
[2023-11-19] MEDS: Propranolol LA 80 MG Capsule PO (22:11)
[2023-11-20 05:18] VITALS: BMI 21.9
[2023-11-20 06:13] LABS: Absolute Lymphocyte Count 1.72 X10^3/uL (0.83-4.51); Absolute Neutrophil Count 4.1 X10^3/uL (2.0-7.7); Basophil# 0.06 X10^3/uL; Basophil% 0.8 % (0-1); Eosinophil# 0.27 X10^3/uL; Eosinophils% 3.8 % (0-5); Hematocrit 40.7 % (40-54); Hemoglobin 12.6 g/dL (13.0-16.5); Lymphocyte # 1.72 X10^3/ul (0.83-4.51); Lymphocyte % 23.9 % (19-41); Mean Corpuscular Hgb 27.7 pg (27.0-32.0); Mean Corpuscular Volume 89.5 fL (80-94); Mean Platelet Vol. 11.3 fl (6.2-12.0); Monocyte# 0.96 X10^3/uL; Monocyte% 13.4 % (0-10); NRBC Flagged by Analyzer 0 % (0-5); Neutrophil # 4.14 X10^3/uL (2.7-7.7); Neutrophil % 57.5 % (47-70); Platelet Count 312 K/mm3 (150-450); RBC Distribution Width CV 13.6 % (11.6-14.6); RBC Distribution Width SD 44.7 fl (35.1-43.9); Red Blood Count 4.55 M/mm3 (4.6-6.2); White Blood Count 7.2 K/mm3 (4.4-11.0)
[2023-11-20 06:32] LABS: Anion Gap 5 (5-15); BUN 29 mg/dL (7-18); BUN/Creat Ratio 27.9 RATIO (10-20); Calcium,Total 9.7 mg/dL (8.5-10.1); Chloride 108 mmol/L (98-107); Creatinine, Serum 1.04 mg/dL (0.70-1.30); EST Glomerular Filtration Rate 73 mL/min (>60); Est Glom Filt Rate - Afr Amer 89 mL/min (>60); Estimated Creatinine Clearance 51.34 ml/min; Glucose 66 mg/dL (74-106); Potassium 4.5 mmol/L (3.5-5.1); Sodium Level 140 mmol/L (136-145)
[2023-11-20 06:32] LABS: Bedside Glucose 94 mg/dL (74-106)
[2023-11-20 06:38] LABS: Bedside Glucose 62 mg/dL (74-106)
--- NOTE | 2023-11-20 07:23 | NURSING ---
Pt's blood sugar was 62 this morning, orange juice with sugar packet admin. Rechecked with a result of 94. Pt encouraged to eat breakfast and agreed to. Denies need for further intervention at this time.
[2023-11-20] MEDS: Glycerin/Hypromellose/PEG400 15 ml Bottle 1 DRP EACH EYE ×3 (08:56→23:07)
[2023-11-20] MEDS: Citalopram 20 MG Tablet PO (08:56)
[2023-11-20] MEDS: Aspirin E.C. 81 MG Tablet PO (08:56)
[2023-11-20] MEDS: Spironolactone 25 MG Tablet 12.5 MG PO (08:56)
[2023-11-20] MEDS: Potassium Chloride Oral Tablet 20 MEQ 40 MEQ PO (08:56)
[2023-11-20] MEDS: Nitrofurantoin Macrocrystals 100 MG Capsule PO ×2 (08:58→23:09)
[2023-11-20] MEDS: Famotidine 20 MG Tablet PO (08:58)
[2023-11-20] MEDS: Propranolol LA 80 MG Capsule PO ×2 (08:58→23:08)
[2023-11-20] MEDS: Menthol/Lanolin/Calamine/Znox 113 GM Tube 1 APPLIC TOPICAL ×2 (08:58→23:08)
[2023-11-20] MEDS: Furosemide 40 MG Tablet PO (08:58)
[2023-11-20] MEDS: Cholecalciferol (Vit D3) 125 MCG CAPSULE (5,000 UNITS) PO (08:58)
--- NOTE | 2023-11-20 10:45 | CASEMGMT ---
Addendum entered by Mervat Grajeda 11/20/23 15:39: Social Work SW spoke with tJ at [facility] and pt has been accepted back. SW met with pt and provided pt with list of [facility] providers in network with insurance and with quality ratings. Pt preferred provider is [facility]. SW make referral to [facility] and they are able to accept pt. Pt was admitted to hospital with CHF. [facility] added to home health orders for medical management. Pt notified and agreeable. Pts dgt to provide transportation back to [facility] tomorrow. Nursing staff updated. Discharge orders faxed to [facility] and to [employer] sales account manager Olimpia. BIMS () and PHQ9 (0) interviews completed for MDS assessment. PLAN: Return to [facility] with [facility] PT/OT/SINDY Gustafson Original Note: Social Work SW placed call to [facility] and updated that pt plans to be discharged on 11/20. [facility] requesting clinical updates be sent for review. [facility] to review clinicals and notify SW if they can accept pt back at this time. SW will await determination of acceptance. SINDY Steven
[2023-11-20 11:07] LABS: Bedside Glucose 211 mg/dL (74-106)
[2023-11-20] MEDS: Insulin Glargine-YFGN 100 UNIT/ML Pen 10 UNIT SC (11:11)
[2023-11-20 14:12] VITALS: BP 117/45; PULSE 60; RESP 16; TEMP 36.6; O2SAT 98
[2023-11-20 17:25] LABS: Bedside Glucose 366 mg/dL (74-106)
[2023-11-20 19:11] LABS: Bedside Glucose 415 mg/dL (74-106)
[2023-11-20] MEDS: Insulin Lispro 100 UNIT/ML INSULN.PEN 10 UNIT SC (19:29)
[2023-11-20 21:24] LABS: Bedside Glucose 147 mg/dL (74-106)
[2023-11-20 22:55] LABS: Bedside Glucose 60 mg/dL (74-106)
[2023-11-20] MEDS: Atorvastatin Calcium 40 MG Tablet PO (23:09)
[2023-11-20] MEDS: Gabapentin 400 MG Capsule PO (23:11)
[2023-11-20 23:20] VITALS: BP 141/39; PULSE 67
[2023-11-20 23:50] LABS: Bedside Glucose 97 mg/dL (74-106)
--- NOTE | 2023-11-21 00:30 | NURSING ---
Return phone call to daughter, Risa, after message received from warehouse worker 2nd shift questioning if [facility] has been made aware of dc tomorrow. Returned phone call to Risa informing her SW spoke w/ Zenia at [facility] to update on dc. She expresses appreciation for the update and notes that her brother will be in to pick resident up by noon as she is working operations supervisor 2nd shift tonight. Will report to oncoming nurse.
--- NOTE | 2023-11-21 04:20 | NURSING ---
Resident calls requesting his blood sugar be taken as he thinks his level is low. Result 165. Resident is satisfied that he is not hypoglycemic. Will continue to monitor.
[2023-11-21 04:31] LABS: Bedside Glucose 165 mg/dL (74-106)
[2023-11-21 05:58] VITALS: BMI 21.9
[2023-11-21 06:50] LABS: Bedside Glucose 185 mg/dL (74-106)
[2023-11-21] MEDS: Potassium Chloride Oral Tablet 20 MEQ 40 MEQ PO (08:26)
[2023-11-21] MEDS: Citalopram 20 MG Tablet PO (08:27)
[2023-11-21] MEDS: Cholecalciferol (Vit D3) 125 MCG CAPSULE (5,000 UNITS) PO (08:27)
[2023-11-21] MEDS: Propranolol LA 80 MG Capsule PO (08:27)
[2023-11-21] MEDS: Spironolactone 25 MG Tablet 12.5 MG PO (08:27)
[2023-11-21] MEDS: Famotidine 20 MG Tablet PO (08:27)
[2023-11-21] MEDS: Aspirin E.C. 81 MG Tablet PO (08:27)
[2023-11-21] MEDS: Nitrofurantoin Macrocrystals 100 MG Capsule PO (08:27)
[2023-11-21] MEDS: Menthol/Lanolin/Calamine/Znox 113 GM Tube 1 APPLIC TOPICAL (08:27)
[2023-11-21] MEDS: Furosemide 40 MG Tablet PO (08:27)
[2023-11-21] MEDS: Glycerin/Hypromellose/PEG400 15 ml Bottle 1 DRP EACH EYE (08:28)
[2023-11-21 08:34] VITALS: BP 103/41; PULSE 59
--- NOTE | 2023-11-21 10:23 | NURSING ---
Report called to Angelina at [facility].
--- NOTE | 2023-11-21 11:05 | NURSING ---
Pt BS 309 Dr. Olson notified and N.O. to give 15 units of Glargine and tell pt to resume normal home insulin dose.
[2023-11-21 11:26] LABS: Bedside Glucose 309 mg/dL (74-106)
[2023-11-21] MEDS: Insulin Glargine-YFGN 100 UNIT/ML Pen 10 UNIT SC (11:46)
[2023-11-21] MEDS: Insulin Glargine-YFGN 100 UNIT/ML Pen SC (11:46)
[2023-11-21 11:59] VITALS: BP 121/54; PULSE 61; RESP 16; TEMP 36.6; O2SAT 96
== END 2023-11-21 11:50 | disposition home health service (06) | DRG 291 ==
PROVIDERS: Admitting Provider Family Medicine Geriatric Medicine; PCP Family Medicine; Referring Provider Family Medicine Geriatric Medicine; Visit Provider Family Medicine Geriatric Medicine
DX: I11.0 Hypertensive heart disease with heart failure (principal); I50.33 Acute on chronic diastolic (congestive) heart failure; E11.42 Type 2 diabetes mellitus with diabetic polyneuropathy; J44.9 Chronic obstructive pulmonary disease, unspecified; Z79.4 Long term (current) use of insulin; G25.0 Essential tremor; I25.5 Ischemic cardiomyopathy; K21.9 Gastro-esophageal reflux disease without esophagitis; I25.10 Atherosclerotic heart disease of native coronary artery without angina pectoris; E55.9 Vitamin D deficiency, unspecified; E87.6 Hypokalemia; Z79.82 Long term (current) use of aspirin; Z87.891 Personal history of nicotine dependence; Z79.899 Other long term (current) drug therapy; Z99.3 Dependence on wheelchair
CPT/HCPCS: 36415; 80048; 81001; 82306; 82962; 85025; 87077; 87086; 87088; 87186; 94640; 94667; 97110; 97116; 97162; 97166; 97530; 97535; 97802; A4216

== ENCOUNTER 2024-01-01 13:37 | Inpatient (IN) | payer MEDICARE, MEDICAID, SELFPAY ==
[2024-01-01] VITALS (8 sets, daily range): BP systolic 151–179; BP diastolic 61–94; PULSE 73–78; RESP 16–26; TEMP 36.4–36.7; O2SAT 93–99; BMI 23.8; BMI 24.1
--- NOTE | 2024-01-01 13:51 | EKG12_ITS ---
Test Reason : SOB Blood Pressure : / mmHG Vent. Rate : 072 BPM Atrial Rate : 072 BPM P-R Int : 168 ms QRS Dur : 094 ms QT Int : 436 ms P-R-T Axes : 073 051 101 degrees QTc Int : 477 ms Sinus rhythm with occasional Premature ventricular complexes Possible Inferior infarct , age undetermined Nonspecific ST and T wave abnormality Abnormal ECG Confirmed by Aramis Jarrell ([id number]), video effects editor GINNY COMER ([id number]) on 01/05/2024 5:58:49 AM Referred By: Confirmed By:Aramis Jarrell
--- NOTE | 2024-01-01 13:51 | RAD_ITS ---
STUDY: X-RAY CHEST REASON FOR EXAM: Male, 78 years old. 2 day history of shortness of breath. COPD. TECHNIQUE: Single AP portable view of the chest. COMPARISON: Comparison is made with prior study dated November 01, 2023. FINDINGS: EKG electrodes are seen. Mild degree of vascular congestion. Increased markings in the lingular segment of the left upper lobe and in the right upper lobe adjacent to the right minor fissure. This may represent atelectasis. There is no demonstrated pleural abnormality. Normal size heart. Normal mediastinum and lobito. Normal visualized pulmonary arteries. Normal visualized aortic arch and descending thoracic aorta. Normal visualized thoracic spine. Normal visualized ribs, clavicles, and shoulders. There is no demonstrated abnormality of the visualized soft tissue structures of the upper abdomen. RAD/Chest 1 View (Portable) IMPRESSION: Findings suggest a mild degree of vascular congestion. Atelectasis at the left lung base and right upper lobe. Electronically Signed: Angel Robins MD at 14:58 EDT ,
--- NOTE | 2024-01-01 13:55 | EX.ED.DYSGE1 ---
HPI <VERENICE Antoine - Last Filed: 01/01/24 15:27> History of Present Illness Chief Complaint: Shortness of Breath Narrative Narrative: 78-year-old male with PMH of HTN, HLD, DM2, CHF, CAD was sent in by his assisted living nursing staff after he was mid 80s on room air placed on 2 L. Two days ago he went to his grandson's baseball game and sat in the heat and when he got home he started to feel short of breath and developed a productive cough. States he intermittently has chest pain when he feels short of breath. No fever or chills. He lives at [facility] and can stand and pivot but uses a wheelchair at all other times and does not ambulate due to debility and Parkinson's tremor. PFSH <VERENICE Antoine - Last Filed: 01/01/24 15:27> [facility] Medical History Anxiety disorder, unspecified Ataxic gait Atherosclerosis of coronary artery of [place] heart without angina pectoris Chronic systolic (congestive) heart failure COPD (chronic obstructive pulmonary disease) Diabetes mellitus due to underlying condition with diabetic neuropathy, unspecified Essential tremor Hearing loss Ischemic cardiomyopathy Major depressive disorder, single episode, unspecified Non-rheumatic mitral regurgitation Non-rheumatic mitral valve stenosis Non-STEMI (non-ST elevated myocardial infarction) Old myocardial infarction Other malaise Secondary pulmonary arterial hypertension Tremor, unspecified Type 2 diabetes mellitus with mild nonproliferative diabetic retinopathy with macular edema, bilateral Type 2 diabetes mellitus without complications Home Medications ?Medication ?Instructions ?Recorded ?Last Taken ?Type aspirin 81 mg tablet,delayed 81 mg PO QDAY preventative 08/19/17 11/05/23 08:40 History release (Adult Low Dose Aspirin) atorvastatin 40 mg tablet 40 mg PO QHS cholesterol 08/19/17 11/04/23 History calcium carbonate (Tums Ultra) 800 mg PO TID PRN Acid Reflux 11/29/20 Unknown History cholecalciferol (vitamin D3) 125 125 mcg PO DAILY vitamin 11/29/20 11/05/23 History mcg (5,000 unit) capsule famotidine 20 mg tablet 20 mg PO DAILY stomach 11/29/20 11/05/23 History gabapentin 400 mg capsule 400 mg PO QHS neuropathy 11/29/20 11/04/23 21:00 History citalopram 20 mg tablet (Celexa) 20 mg PO DAILY anxiety 11/01/23 11/05/23 History potassium chloride 20 mEq 40 meq PO DAILY potassium 11/01/23 11/05/23 10:15 History tablet,extended release hydrocodone-acetaminophen 5-325mg 1 - 2 tab PO Q6H PRN PRN Pain 11/05/23 11/04/23 Rx 5mg-325mg Score 1-10 4 days #10 tabs insulin glargine-yfgn 100 unit/mL 15 unit (0.15 mL) subcut LUNCH 11/05/23 11/05/23 10:30 Rx (3 mL) subcutaneous pen Diabetes #0 mL peg [id number] 1 1 drp EACH EYE TID Dry Eyes #0 mL 11/05/23 11/05/23 Rx %-0.2 %-0.2 % eye drops (Artificial Tears ([id number])) acetaminophen 500 mg tablet 1,000 mg (2 x 500 mg) PO Q6H PRN 11/19/23 Unknown Rx PRN Pain Score 1-5 #0 tabs furosemide 40 mg tablet 40 mg PO DAILY #0 tabs 11/19/23 Unknown Rx spironolactone 25 mg tablet 12.5 mg (1/2 x 25 mg) PO DAILY #0 11/19/23 Unknown Rx tabs multivitamin with folic acid 400 1 tab PO DAILY 01/01/24 Unknown History mcg tablet (Daily-Lizett (with folic acid)) propranolol 80 mg tablet 80 mg PO BID 01/01/24 Unknown History Allergy/AdvReac Type Severity Reaction Status Date / Time Penicillins Allergy Unknown Unknown Verified 11/01/23 11:55 metoprolol AdvReac Mild Nausea Verified 11/01/23 11:55 Family History Grandfather CVA (cerebral vascular accident) Surgical History History of cataract surgery History of left heart catheterization (~08/18/16) History of thoracentesis (~08/2016) Social History housing: assisted living facility Smoking Status: Former smoker Tobacco: How many years used: 40 how long ago did patient quit smoking: about 25 years ago Smoked about 2-3 paks a day alcohol intake: current alcohol intake frequency: holidays/special occasions only substance use type: does not use ROS <VERENICE Antoine - Last Filed: 01/01/24 15:27> ROS ED ROS Narrative Constitutional: Negative for fever, chills. ENT: Positive for rhinorrhea. CVS: Positive for intermittent chest pain. Negative for palpitations, syncope. Respiratory: Positive for shortness of breath, cough. GI: Negative for abdominal pain, nausea, vomiting, diarrhea. EXAM <VERENICE Antoine Last Filed: 01/01/24 15:27> Physical Exam Narrative Exam Narrative: CONST: Patient sitting in no acute distress. EYES: Normal inspection. NECK: Normal inspection. RESP: No respiratory distress, lung sounds diminished but clear. CVS: Regular rate and rhythm, no murmur, no gallop. ABD: Soft and nontender, no guarding or rebound, nondistended. SKIN: Color normal, no rash, warm, dry, intact. EXTREMITIES: Normal appearance, trace pedal edema both ankles. NEURO: Alert and answering questions appropriately. Voice tremulous. PSYCH: Normal affect. Const Vital Signs: 01/01/24 13:38 01/01/24 13:51 01/01/24 14:13 Temperature 97.6 F L Temperature Source Temporal Pulse Rate 73 Respiratory Rate 22 H Respiratory Effort Short of Breath Respiratory Depth Shallow Respiratory Pattern Normal Blood Pressure 179/65 H Blood Pressure Mean 103 Pulse Ox 98 97 Oxygen Delivery Method Nasal Cannula Nasal Cannula Nasal Cannula Oxygen Flow Rate (L/min) 2 4 2 01/01/24 14:13 01/01/24 15:19 01/01/24 15:26 Temperature 97.7 F L Temperature Source Pulse Rate 73 77 78 Respiratory Rate 26 H 22 H 22 H Respiratory Effort Respiratory Depth Respiratory Pattern Blood Pressure 151/82 H 151/82 H Blood Pressure Mean 105 105 Pulse Ox 93 93 Oxygen Delivery Method Nasal Cannula Oxygen Flow Rate (L/min) 2 <Dr. Ryan Lopez DO - Last Filed: 01/01/24 15:32> Physical Exam Const Vital Signs: 01/01/24 13:38 01/01/24 13:51 01/01/24 14:13 Temperature 97.6 F L Temperature Source Temporal Pulse Rate 73 Respiratory Rate 22 H Respiratory Effort Short of Breath Respiratory Depth Shallow Respiratory Pattern Normal Blood Pressure 179/65 H Blood Pressure Mean 103 Pulse Ox 98 97 Oxygen Delivery Method Nasal Cannula Nasal Cannula Nasal Cannula Oxygen Flow Rate (L/min) 2 4 2 01/01/24 14:13 01/01/24 15:19 01/01/24 15:26 Temperature 97.7 F L Temperature Source Pulse Rate 73 77 78 Respiratory Rate 26 H 22 H 22 H Respiratory Effort Respiratory Depth Respiratory Pattern Blood Pressure 151/82 H 151/82 H Blood Pressure Mean 105 105 Pulse Ox 93 93 Oxygen Delivery Method Nasal Cannula Oxygen Flow Rate (L/min) 2 MDM <VERENICE Antoine - Last Filed: 01/01/24 15:27> [facility] MDM Narrative Medical decision making narrative: History from: Patient and EMS Differential: Viral URI, pneumonia, CHF, ACS, PE Consults: Hospitalist 78-year-old male has had 3 days of cough and dyspnea and was 82% on room air. He was placed on 2 L which she is wearing during my examination. He does not appear in distress and lungs are clear. He has trace pedal edema. EKG is sinus rhythm at 72 bpm with occasional PVCs. Troponin is 24. He has a normal white count of 9.5, mild anemia 11.3, normal electrolytes and renal function, glucose 270. Chest x-ray shows mild vascular congestion. D-dimer was elevated so CTA was ordered which confirms CHF and bilateral pleural effusions. There is no PE. Patient is prescribed Lasix 40 mg p.o. once daily and I ordered an IV bolus of 40 mg. He is still requiring 2 L. Case will be discussed with the hospitalist for admission. Lab Data Attestation: I reviewed the patient's lab results. Labs: Laboratory Results - last 24 hr 01/01/24 14:03 WBC 9.5 RBC 4.06 L Hgb 11.3 L Hct 36.0 L MCV 88.7 MCH 27.8 MCHC 31.4 L RDW Std Deviation 50.0 H RDW Coeff of Bebeto 15.5 H Plt Count 267 MPV 11.2 Immature Gran % (Auto) 0.200 Neut % (Auto) 76.5 H Lymph % (Auto) 10.2 L Piatt % (Auto) 9.3 Eos % (Auto) 3.3 Baso % (Auto) 0.5 Absolute Neuts (auto) 7.3 Absolute Lymphs (auto) 0.97 Nucleated RBC % 0 D-Dimer Quant (PE/DVT) 1.12 H* Sodium 136 Potassium 4.5 Chloride 104 Carbon Dioxide 29.0 Anion Gap 3 L BUN 9 Creatinine 1.06 Estim Creat Clear Calc 55.57 Est GFR (MDRD) Af Amer 87 Est GFR (MDRD) Non-Af 72 BUN/Creatinine Ratio 8.5 L Glucose 270 H Calcium 8.9 Troponin I High Sens 24 B-Natriuretic Peptide 969.5 H Radiography Diagnostic Testing: Clinical Impression(s) from Imaging Studies Chest X-Ray 01/01/24 13:51 IMPRESSION: Findings suggest a mild degree of vascular congestion. Atelectasis at the left lung base and right upper lobe. Electronically Signed: Angel Robins MD at 14:58 EDT , Chest CTA 01/01/24 14:28 IMPRESSION: Bilateral pleural effusions right greater than left with findings suggestive of CHF and atelectasis along the anterior aspect of the right middle lobe and lingular segment of the left upper lobe. Electronically Signed: Angel Robins MD at 15:01 EDT , ED attending interpretation of 1 view chest x-ray shows normal heart size, no acute infiltrate. EKG Initial EKG: Attestation: I personally reviewed and interpreted this EKG as follows: Comments: Sinus rhythm at 72 bpm with occasional PVCs Machine noted ST and T wave abnormalities however it looks similar to previous Prior EKG tracings: available for review Prior: Unchanged <Dr. Ryan Lopez, DO - Last Filed: 01/01/24 15:32> [facility] MDM Narrative Medical decision making narrative: History from: Patient and EMS Differential: Viral URI, pneumonia, CHF, ACS, PE Consults: Hospitalist 78-year-old male has had 3 days of cough and dyspnea and was 82% on room air. He was placed on 2 L which she is wearing during my examination. He does not appear in distress and lungs are clear. He has trace pedal edema. EKG is sinus rhythm at 72 bpm with occasional PVCs. Troponin is 24. He has a normal white count of 9.5, mild anemia 11.3, normal electrolytes and renal function, glucose 270. Chest x-ray shows mild vascular congestion. D-dimer was elevated so CTA was ordered which confirms CHF and bilateral pleural effusions. There is no PE. Patient is prescribed Lasix 40 mg p.o. once daily and I ordered an IV bolus of 40 mg. He is still requiring 2 L. Case will be discussed with the hospitalist for admission. This patient was seen with a PA/INVENTORY CONTROL PLANNER Individually assessed they patient including history and physical. I have reviewed everything on the chart that is available and agree with the documentation provided by the PA/INVENTORY CONTROL PLANNER including discussion about the assessment, treatment plan, discussion, and return precautions. 78-year-old male with history of CHF presenting with shortness of breath and hypoxia. Differential as above. He workup today suggestive of CHF. Chest x-ray on my interpretation shows vascular congestion. BNP is elevated today at 969. CTA was interpreted as CHF with bilateral pleural effusion with no PE. Patient was given 40 mg of Lasix IV in the ER. He is requiring increased oxygen and states he does not wear oxygen outside the hospital. Discussed with hospitalist for admission. Lab Data Labs: Laboratory Results - last 24 hr 01/01/24 14:03 WBC 9.5 RBC 4.06 L Hgb 11.3 L Hct 36.0 L MCV 88.7 MCH 27.8 MCHC 31.4 L RDW Std Deviation 50.0 H RDW Coeff of Bebeto 15.5 H Plt Count 267 MPV 11.2 Immature Gran % (Auto) 0.200 Neut % (Auto) 76.5 H Lymph % (Auto) 10.2 L Piatt % (Auto) 9.3 Eos % (Auto) 3.3 Baso % (Auto) 0.5 Absolute Neuts (auto) 7.3 Absolute Lymphs (auto) 0.97 Nucleated RBC % 0 D-Dimer Quant (PE/DVT) 1.12 H* Sodium 136 Potassium 4.5 Chloride 104 Carbon Dioxide 29.0 Anion Gap 3 L BUN 9 Creatinine 1.06 Estim Creat Clear Calc 55.57 Est GFR (MDRD) Af Amer 87 Est GFR (MDRD) Non-Af 72 BUN/Creatinine Ratio 8.5 L Glucose 270 H Calcium 8.9 Troponin I High Sens 24 B-Natriuretic Peptide 969.5 H Radiography Diagnostic Testing: Clinical Impression(s) from Imaging Studies Chest X-Ray 01/01/24 13:51 IMPRESSION: Findings suggest a mild degree of vascular congestion. Atelectasis at the left lung base and right upper lobe. Electronically Signed: Angel Robins MD at 14:58 EDT , Chest CTA 01/01/24 14:28 IMPRESSION: Bilateral pleural effusions right greater than left with findings suggestive of CHF and atelectasis along the anterior aspect of the right middle lobe and lingular segment of the left upper lobe. Electronically Signed: Angel Robins MD at 15:01 EDT , Discharge Plan Triage Chief Complaint: Shortness of Breath ED Midlevel Provider: Zhane Norman ED Provider: Ryan Lopez Dx/Rx/DC Orders Clinical Impression: Acute exacerbation of CHF (congestive heart failure), Hypoxia, Bilateral pleural effusion Prescriptions: No Action atorvastatin 40 mg tablet 40 mg PO QHS aspirin [Adult Low Dose Aspirin] 81 mg tablet,delayed release (DR/EC) 81 mg PO QDAY famotidine 20 mg tablet 20 mg PO DAILY gabapentin 400 mg capsule 400 mg PO QHS cholecalciferol (vitamin D3) 125 mcg (5,000 unit) capsule 125 mcg PO DAILY calcium carbonate [Tums Ultra] 400 mg calcium (1,000 mg) tablet,chewable 800 mg PO TID PRN (Reason: Acid Reflux) potassium chloride 20 mEq tablet extended release 40 meq PO DAILY citalopram [Celexa] 20 mg tablet 20 mg PO DAILY insulin glargine-yfgn 100 unit/mL (3 mL) Insulin Pen 15 unit subcut LUNCH Qty: 0 0RF hydrocodone-acetaminophen 5-325 mg Tablet 1 - 2 tab PO Q6H PRN PRN (Reason: Pain Score 1-10) 4 Days Qty: 10 0RF Artificial Tears([id number]) 1-0.2-0.2 % Drops 1 drp EACH EYE TID Qty: 0 0RF furosemide 40 mg Tablet 40 mg PO DAILY Qty: 0 0RF acetaminophen 500 mg Tablet 1,000 mg PO Q6H PRN PRN (Reason: Pain Score 1-5) Qty: 0 0RF spironolactone 25 mg Tablet 12.5 mg PO DAILY Qty: 0 0RF propranolol 80 mg tablet 80 mg PO BID multivitamin with folic acid [Daily-Lizett (with folic acid)] 400 mcg tablet 1 tab PO DAILY Primary Care Provider: Kyle Aguila Referrals: Kyle Aguila MD [Primary Care Provider] - Print Language: Spanish
[2024-01-01] MEDS: Ipratropium/Albuterol Sulfate 3 ML AMPUL.NEB INHALATION ×2 (14:13→19:23)
[2024-01-01 14:17] LABS: Absolute Lymphocyte Count 0.97 X10^3/uL (0.83-4.51); Absolute Neutrophil Count 7.3 X10^3/uL (2.0-7.7); Basophil# 0.05 X10^3/uL; Basophil% 0.5 % (0-1); Eosinophil# 0.31 X10^3/uL; Eosinophils% 3.3 % (0-5); Hemoglobin 11.3 g/dL (13.0-16.5); Lymphocyte # 0.97 X10^3/ul (0.83-4.51); Lymphocyte % 10.2 % (19-41); Mean Corp Hgb Conc 31.4 g/dL (32-36); Mean Corpuscular Hgb 27.8 pg (27.0-32.0); Mean Corpuscular Volume 88.7 fL (80-94); Mean Platelet Vol. 11.2 fl (6.2-12.0); Monocyte# 0.89 X10^3/uL; Monocyte% 9.3 % (0-10); NRBC Flagged by Analyzer 0 % (0-5); Neutrophil # 7.28 X10^3/uL (2.7-7.7); Neutrophil % 76.5 % (47-70); Platelet Count 267 K/mm3 (150-450); RBC Distribution Width CV 15.5 % (11.6-14.6); Red Blood Count 4.06 M/mm3 (4.6-6.2); White Blood Count 9.5 K/mm3 (4.4-11.0)
[2024-01-01 14:27] LABS: D-Dimer Quantitative (DVT/PE) 1.12 FEU/ug/m (0.27-0.49)
[2024-01-01 14:28] LABS: Anion Gap 3 (5-15); BUN 9 mg/dL (7-18); BUN/Creat Ratio 8.5 RATIO (10-20); Calcium,Total 8.9 mg/dL (8.5-10.1); Chloride 104 mmol/L (98-107); Creatinine, Serum 1.06 mg/dL (0.70-1.30); EST Glomerular Filtration Rate 72 mL/min (>60); Est Glom Filt Rate - Afr Amer 87 mL/min (>60); Estimated Creatinine Clearance 55.57 ml/min; Glucose 270 mg/dL (74-106); Potassium 4.5 mmol/L (3.5-5.1); Sodium Level 136 mmol/L (136-145); Troponin-I HS (w/2H Reflex) 24 pg/mL (3.0-78.0)
--- NOTE | 2024-01-01 14:28 | CT_ITS ---
STUDY: CTA CHEST REASON FOR EXAM: Male, 78 years old. Dyspnea RADIATION DOSAGE (If Supplied By Facility): CTDIvol = ( 11.92 ) mGy, DLP = ( 447.69 ) mGycm TECHNIQUE: The examination was performed with the intravenous administration of IV 75mL [id number]-[id number]. Post-processing of the angiographic images was performed, with multiplanar reformation and 3D reconstruction. Individualized dose optimization techniques were used for this CT. COMPARISON: None. FINDINGS: Normal enhancement of the main pulmonary artery and right and left pulmonary arteries. Normal enhancement of the bilateral peripheral pulmonary arteries. There is no demonstrated pulmonary embolism. There is atherosclerotic calcification of the aortic arch with tortuosity. There is no demonstrated aortic dissection. There are calcifications of the coronary arteries. Normal mediastinum. Normal hilar regions. Normal visualized trachea and bronchi. Small bilateral pleural effusions right greater than left with increase interstitial markings suggestive of CHF. Mild degree of atelectasis in the anterior aspect of the right middle lobe and lingular segment of the left upper lobe. Normal chest wall structures. There are mild degenerative changes of thoracic spine. Normal visualized upper abdomen. CT/CTA Chest W/WO Contrast IMPRESSION: Bilateral pleural effusions right greater than left with findings suggestive of CHF and atelectasis along the anterior aspect of the right middle lobe and lingular segment of the left upper lobe. Electronically Signed: Angel Robins MD at 15:01 EDT ,
[2024-01-01] MEDS: Furosemide 40 MG/4 ML Vial IV (15:11)
[2024-01-01 15:27] LABS: BNP,B-Type NATRIURETIC PEPTIDE 969.5 pg/mL (0-100)
[2024-01-01 15:38] LABS: Bedside Glucose 233 mg/dL (74-106)
[2024-01-01 16:07] LABS: Reflex Troponin-HS? (from REC) Y
--- NOTE | 2024-01-01 16:13 | HP.PCM.HOS_ITS ---
HPI - General General Date of Admission: 01/01/24 Date of Service: 01/01/24 Chief Complaint: Shortness of breath cough and sputum production for 3 days HPI Narrative TRINA SPENCER, is a 78 M with multiple comorbidities as mentioned below including heart failure and COPD came to ED with shortness of breath worsening for 3 days. Patient lives in [facility] and said he went out for couple hours outside about 3 days ago and after that he started feeling sick with shortness of breath mainly on exertion. He also has cough which is productive in nature with yellowish sputum. Shortness of breath progressed. Patient was tachypneic and hypoxic in ED. Patient usually not on home oxygen and half-way. Denies chest pain pressure tightness but feels chest congestion/mucus stuck in the chest. Denies fever or chills In ED, patient was tachypneic, respiratory rate is 22, mild hypoxia requiring 2 L of oxygen. Blood pressure as high as 179/65 but heart rate 73/min. Afebrile. As per EMS note, his pulse ox was 95% on 4 L of oxygen Patient had chest x-ray which was followed by chest CTA which shows mild degree of vascular congestion, bilateral pleural effusion right more than left. Patient was given a dose of Lasix 40 mg and further admitted Twelve-lead EKG shows normal sinus rhythm at 72 bpm with occasional PVCs, QTc 477 ms. [facility] Medical History Acute lumbar myofascial strain Diabetes mellitus due to underlying condition with diabetic neuropathy, unspecified Ataxic gait Major depressive disorder, single episode, unspecified Anxiety disorder, unspecified Other malaise Tremor, unspecified Type 2 diabetes mellitus with mild nonproliferative diabetic retinopathy with macular edema, bilateral Hearing loss COPD (chronic obstructive pulmonary disease) Essential tremor Old myocardial infarction Ischemic cardiomyopathy Atherosclerosis of coronary artery of [place] heart without angina pectoris Secondary pulmonary arterial hypertension Type 2 diabetes mellitus without complications Chronic systolic (congestive) heart failure Non-rheumatic mitral valve stenosis Non-rheumatic mitral regurgitation Non-STEMI (non-ST elevated myocardial infarction) Home Medications ?Medication ?Instructions ?Recorded ?Last Taken ?Type aspirin 81 mg tablet,delayed 81 mg PO QDAY preventative 08/19/17 01/01/24 History release (Adult Low Dose Aspirin) atorvastatin 40 mg tablet 40 mg PO QHS cholesterol 08/19/17 12/31/23 History calcium carbonate (Tums Ultra) 800 mg PO TID PRN Acid Reflux 11/29/20 Unknown History cholecalciferol (vitamin D3) 125 125 mcg PO DAILY vitamin 11/29/20 12/31/23 History mcg (5,000 unit) capsule famotidine 20 mg tablet 20 mg PO DAILY stomach 11/29/20 01/01/24 History gabapentin 400 mg capsule 400 mg PO QHS neuropathy 11/29/20 12/31/23 History citalopram 20 mg tablet (Celexa) 20 mg PO DAILY anxiety 11/01/23 01/01/24 History potassium chloride 20 mEq 40 meq PO DAILY potassium 11/01/23 01/01/24 History tablet,extended release furosemide 40 mg tablet 40 mg PO DAILY #0 tabs 11/19/23 01/01/24 Rx spironolactone 25 mg tablet 12.5 mg (1/2 x 25 mg) PO DAILY #0 11/19/23 12/31/23 Rx tabs insulin glargine-yfgn 100 unit/mL 44 unit subcut DAILY Diabetes 01/01/24 12/31/23 History (3 mL) subcutaneous pen polyvinyl alcohol 1.4 % eye drops 1 drp EACH EYE BID 01/01/24 01/01/24 History (Artificial Tears (polyvinyl alcohol)) propranolol 80 mg tablet 80 mg PO BID 01/01/24 01/01/24 History Allergy/AdvReac Type Severity Reaction Status Date / Time Penicillins Allergy Unknown Unknown Verified 11/01/23 11:55 metoprolol AdvReac Mild Nausea Verified 11/01/23 11:55 Family History Grandfather CVA (cerebral vascular accident) Surgical History History of thoracentesis (~08/2016) History of left heart catheterization (~08/18/16) History of cataract surgery Social History housing: assisted living facility Smoking Status: Former smoker Tobacco: How many years used: 40 how long ago did patient quit smoking: about 25 years ago Smoked about 2-3 paks a day alcohol intake: current alcohol intake frequency: holidays/special occasions only substance use type: does not use ROS ROS Narrative Constitutional: Reports fatigue and weakness. No fever. HEENT: Uses hearing aid. Bilateral hearing impairment. Speech difficult to understand. Reports systems reviewed and no addt'l complaints, except as documented Respiratory/Chest: No wheezing. Rest as described in HPI CVS: As described in HPI Gastrointestinal: Denies coffee ground emesis, hematemesis or vomiting Genitourinary: Denies burning urination or new urinary tract symptoms Musculoskeletal: Chronic arthritis. Denies acute joint pain or limited range of motion. No acute injury Neurologic: Denies seizure-like symptoms. skin: No ulcer. No rash Endocrinology: Reports systems reviewed and no addt'l complaints, except as documented Hematologic/Lymphatic: Reports systems reviewed and no addt'l complaints, except as documented Rest 14 ROS are negative except as mentioned in HPI Vital Signs Vital Signs Vital Signs: 01/01/24 13:38 01/01/24 13:51 01/01/24 14:13 Temperature 97.6 F L Temperature Source Temporal Pulse Rate 73 Respiratory Rate 22 H Respiratory Effort Short of Breath Respiratory Depth Shallow Respiratory Pattern Normal Blood Pressure 179/65 H Blood Pressure Mean 103 Pulse Ox 98 97 Oxygen Delivery Method Nasal Cannula Nasal Cannula Nasal Cannula Oxygen Flow Rate (L/min) 2 4 2 01/01/24 14:13 01/01/24 15:19 01/01/24 15:26 Temperature 97.7 F L Temperature Source Pulse Rate 73 77 78 Respiratory Rate 26 H 22 H 22 H Respiratory Effort Respiratory Depth Respiratory Pattern Blood Pressure 151/82 H 151/82 H Blood Pressure Mean 105 105 Pulse Ox 93 93 Oxygen Delivery Method Nasal Cannula Oxygen Flow Rate (L/min) 2 Weight Weight: 156 lb 12.8 oz Body Mass Index (BMI) 23.8 Physical Exam Narrative General: Alert, Oriented x3, Cooperative HEENT: Bilateral hearing impairment. Uses hearing aid. Atraumatic, PERRLA, EOMI, Normocephalic Oral: Edentulous. Oral mucosa dry. No Gingival or Mucosal Lesions/ Ulcerations Neck: Supple, No JVD, Negative Carotid Bruits Chest wall/Lungs: Air entry diminished in bilateral lung bases. Bilateral coarse crepitations present. Mild bilateral pleural effusion. Cardiovascular: Regular rate, Regular Rhythm, Normal S1, Normal S2, systolic murmur present Abdomen: Bowel Sounds Present, Soft, Non Tender, Non-Distended : No dysuria. No renal angle tenderness. No suprapubic tenderness. Extremities: 2+ bilateral pitting edema, Capillary Refill Less than 3 Seconds Skin: No rashes, No breakdown Musculoskeletal: ROM decreased. Bilateral knee joints arthritis. No Tenderness to Palpation of Joints or Extremities Neurological: Cranial nerves II-XII grossly intact, DTR 2+/4. No acute focal neurological deficit. Psych/Mental Status: Flat affect. Looks mildly depressed after the of his Results Lab / Micro Data 01/01/24 14:03 01/01/24 14:03 Labs: Laboratory Results - last 24 hr 01/01/24 14:03: WBC 9.5, RBC 4.06 L, Hgb 11.3 L, Hct 36.0 L, MCV 88.7, MCH 27.8, MCHC 31.4 L, RDW Std Deviation 50.0 H, RDW Coeff of [place] 15.5 H, Plt Count 267, MPV 11.2, Immature Gran % (Auto) 0.200, Neut % (Auto) 76.5 H, Lymph % (Auto) 10.2 L, [place] % (Auto) 9.3, Eos % (Auto) 3.3, Baso % (Auto) 0.5, Absolute Neuts (auto) 7.3, Absolute Lymphs (auto) 0.97, Nucleated RBC % 0, D-Dimer Quant (PE/DVT) 1.12 H*, Sodium 136, Potassium 4.5, Chloride 104, Carbon Dioxide 29.0, Anion Gap 3 L, BUN 9, Creatinine 1.06, Estim Creat Clear Calc 55.57, Est GFR (MDRD) Af Amer 87, Est GFR (MDRD) Non-Af 72, BUN/Creatinine Ratio 8.5 L, Glucose 270 H, Calcium 8.9, Troponin I High Sens 24, B-Natriuretic Peptide 969.5 H 01/01/24 15:19: POC Glucose 233 H Imaging Radiology Impression Chest X-Ray 01/01/24 13:51 IMPRESSION: Findings suggest a mild degree of vascular congestion. Atelectasis at the left lung base and right upper lobe. Electronically Signed: Angel Robins MD at 14:58 EDT , Chest CTA 01/01/24 14:28 IMPRESSION: Bilateral pleural effusions right greater than left with findings suggestive of CHF and atelectasis along the anterior aspect of the right middle lobe and lingular segment of the left upper lobe. Electronically Signed: Angel Robins MD at 15:01 EDT , Assessment & Plan Assessment/Plan (1) Acute exacerbation of CHF (congestive heart failure): (2) COPD exacerbation: PLAN: Plan This 17-year-old gentleman being admitted for shortness of breath cough, productive in nature with yellow sputum for the last 3 days. 1. Acute on chronic HFpEF, CHF exacerbation: Patient is being admitted in PCU. BNP elevated. Patient recently had 2D echo on 11/02/2023 which shows EF 50%, hypokinetic apex, stage II diastolic dysfunction left atrium mildly enlarged. Patient started on IV furosemide 40 mg every 12 hourly. Heart failure core measures including intake and output, fluid restriction less than 1500 mL, daily weight monitoring, kidney and electrolytes monitoring. On baby aspirin continued. Spironolactone continued. 2. COPD exacerbation: Patient has cough productive in nature with shortness of breath mild exertion change from his baseline therefore COPD exacerbation. Patient is being managed on scheduled bronchodilator, IV Solu-Medrol, Mucinex, incentive spirometry and Pep. Chest x-ray and CTA individually reviewed and shows mild pleural effusion right more than left with underlying but no acute consolidation. Sputum culture, SARS-CoV-2, RSV and flu ordered. Respiratory panel ordered. 3. Chronic low back pain secondary to osteoarthritis-PT and OT ordered. Patient on vitamin D3. Tylenol as needed 4. Type 2 diabetes melitis-glucose is 233. Accu-Chek before meals and at bedtime with Humalog sliding scale coverage. Patient on Lantus insulin 44 units milligrams daily in half-way. Decreased to 40 with subcutaneous daily. Titrate as needed. Patient also on gabapentin for diabetic neuropathy. 5. Essential hypertension-blood pressure was high in the ED. Most recent 151/82 continue present medications 6. Essential tremor-complicates care, management, recovery, and prognosis, patient is on propranolol. Continue 7. Acute debility with decreased functional status and mildly depressed. Patient on citalopram continued DVT prophylaxis: Lovenox 40 mill subcu daily. Living will/advanced directive/end of life care: Patient does have living will or advanced directive. He states his daughter is power of corporate librarian for health. After discussion of benefits/risks procedures involved with full code, DNR CC arrest and DNR CC, the patient opted for DNR CC arrest with no intubation. Actually patient did not want to get admitted but I told him that he is sick and short of breath therefore he agreed to stay Patient doesn't want artificial life support including intubation, tube feed, ventilator and/chest compression, central venous catheter, vasopressor and DC shock if needed Total time spent in [id number] encounter in discussion of advanced directive 17 minutes. Laboratory Results 01/01/24 14:03: WBC 9.5, RBC 4.06 L, Hgb 11.3 L, Hct 36.0 L, MCV 88.7, MCH 27.8, MCHC 31.4 L, RDW Std Deviation 50.0 H, RDW Coeff of [place]eb[place] 15.5 H, Plt Count 267, MPV 11.2, Immature Gran % (Auto) 0.200, Neut % (Auto) 76.5 H, Lymph % (Auto) 10.2 L, [place] % (Auto) 9.3, Eos % (Auto) 3.3, Baso % (Auto) 0.5, Absolute Neuts (auto) 7.3, Absolute Lymphs (auto) 0.97, Nucleated RBC % 0, D-Dimer Quant (PE/DVT) 1.12 H*, Sodium 136, Potassium 4.5, Chloride 104, Carbon Dioxide 29.0, Anion Gap 3 L, BUN 9, Creatinine 1.06, Estim Creat Clear Calc 55.57, Est GFR (MDRD) Af Amer 87, Est GFR (MDRD) Non-Af 72, BUN/Creatinine Ratio 8.5 L, Glucose 270 H, Calcium 8.9, Troponin I High Sens 24, B-Natriuretic Peptide 969.5 H 01/01/24 15:19: POC Glucose 233 H Interpretation Summary The estimated ejection fraction is 50 %. hypokinetic apex Stage 2 diastolic dysfunction. The left atrium is mildly enlarged. Trivial mitral valve insufficiency. Mild (1+) aortic valve insufficiency. Charges/Coding Visit Charges Inpatient E&M: 76084 Init Hosp L3 Procedures Hospitalists Procedures: 22812 Advncd Care Plan 30 Min
[2024-01-01 16:39] LABS: Troponin-I HS 26 pg/mL (3.0-78.0)
[2024-01-01 16:45] LABS: Magnesium 2.2 mg/dL (1.6-2.6)
[2024-01-01] MEDS: Azithromycin 500 MG in Dextrose 5%-Water (250mL Bag) 250 ML 250 MG IV (18:15)
[2024-01-01] MEDS: Glycerin/Hypromellose/PEG400 15 ml Bottle 1 DRP EACH EYE (20:58)
[2024-01-01] MEDS: Propranolol 40 MG Tablet 80 MG PO (20:59)
[2024-01-01] MEDS: guaiFENesin/D-Methorphan TAB.SR.12H 2 TABLET PO (20:59)
[2024-01-01] MEDS: 0.9% Saline Lock 10 ML Syringe IV (20:59)
[2024-01-01] MEDS: Atorvastatin Calcium 40 MG Tablet PO (20:59)
[2024-01-01] MEDS: Acetaminophen 325 MG Tablet 650 MG PO (21:09)
[2024-01-01] MEDS: Gabapentin 400 MG Capsule PO (21:10)
[2024-01-02] VITALS (14 sets, daily range): BP systolic 130–143; BP diastolic 55–75; PULSE 70–78; RESP 16–18; TEMP 36.3–36.7; O2SAT 89–98; BMI 24.5
[2024-01-02] MEDS: 0.9% Saline Lock 10 ML Syringe IV (05:18)
[2024-01-02 07:11] LABS: Absolute Lymphocyte Count 0.56 X10^3/uL (0.83-4.51); Absolute Neutrophil Count 8.1 X10^3/uL (2.0-7.7); Basophil# 0.02 X10^3/uL; Basophil% 0.2 % (0-1); Hematocrit 34.6 % (40-54); Hemoglobin 10.6 g/dL (13.0-16.5); Lymphocyte # 0.56 X10^3/ul (0.83-4.51); Lymphocyte % 6.3 % (19-41); Mean Corp Hgb Conc 30.6 g/dL (32-36); Mean Corpuscular Volume 88.3 fL (80-94); Mean Platelet Vol. 11.5 fl (6.2-12.0); Monocyte# 0.17 X10^3/uL; Monocyte% 1.9 % (0-10); NRBC Flagged by Analyzer 0 % (0-5); Neutrophil # 8.06 X10^3/uL (2.7-7.7); POSITIVE DIFFERENTIAL YES; Platelet Count 263 K/mm3 (150-450); RBC Distribution Width CV 15.5 % (11.6-14.6); RBC Distribution Width SD 49.1 fl (35.1-43.9); Red Blood Count 3.92 M/mm3 (4.6-6.2); White Blood Count 8.9 K/mm3 (4.4-11.0)
[2024-01-02] MEDS: Ipratropium/Albuterol Sulfate 3 ML AMPUL.NEB INHALATION ×3 (07:17→19:37)
[2024-01-02 07:46] LABS: Anion Gap 6 (5-15); BUN 16 mg/dL (7-18); BUN/Creat Ratio 13.6 RATIO (10-20); Calcium,Total 8.1 mg/dL (8.5-10.1); Chloride 99 mmol/L (98-107); Cholesterol 84 mg/dL (200); Creatinine, Serum 1.18 mg/dL (0.70-1.30); EST Glomerular Filtration Rate 63 mL/min (>60); Est Glom Filt Rate - Afr Amer 77 mL/min (>60); Estimated Creatinine Clearance 46.56 ml/min; Glucose 386 mg/dL (74-106); High Density Lipoprotein 33 mg/dL; Potassium 3.5 mmol/L (3.5-5.1); Sodium Level 134 mmol/L (136-145); Thyroid Stim Hormone (TSH) 0.19 uIU/mL (0.358-3.74); Triglycerides 34 mg/dL; Very Low Density Lipoprotein 7 mg/dL (5-40)
[2024-01-02 09:43] LABS: Hemoglobin A1c 9.4 % (3.8-5.6)
[2024-01-02 10:24] LABS: Bedside Glucose 343 mg/dL (74-106)
[2024-01-02] MEDS: Cholecalciferol (Vit D3) 125 MCG CAPSULE (5,000 UNITS) PO (11:03)
[2024-01-02] MEDS: Azithromycin 250 MG Tablet 500 MG PO (11:03)
[2024-01-02] MEDS: Propranolol 40 MG Tablet 80 MG PO ×2 (11:03→21:24)
[2024-01-02] MEDS: Famotidine 20 MG Tablet PO (11:04)
[2024-01-02] MEDS: guaiFENesin/D-Methorphan TAB.SR.12H 2 TABLET PO ×2 (11:04→21:24)
[2024-01-02] MEDS: Furosemide 40 MG/4 ML Vial IV ×2 (11:04→18:02)
[2024-01-02] MEDS: Aspirin E.C. 81 MG Tablet PO (11:04)
[2024-01-02] MEDS: Citalopram 20 MG Tablet PO (11:04)
[2024-01-02] MEDS: Spironolactone 25 MG Tablet 12.5 MG PO (11:04)
[2024-01-02] MEDS: Acetaminophen 325 MG Tablet 650 MG PO ×2 (11:05→21:34)
[2024-01-02] MEDS: Glycerin/Hypromellose/PEG400 15 ml Bottle 1 DRP EACH EYE ×2 (11:10→21:25)
--- NOTE | 2024-01-02 11:24 | PCM.PN.HOSP ---
Reason for Visit Reason for Visit: Diagnoses Heart failure, unspecified (01/01/24) Chronic obstructive pulmonary disease with (acute) exacerbation (01/01/24) Subjective Subjective Patient admitted yesterday afternoon from assisted living facility for 3-day history of URI symptoms and worsening shortness of breath with exertion. Positive for rhinovirus on admit. Chest imaging showed mild vascular congestion and bilateral pleural effusions. Patient was admitted for treatment of both CHF and COPD exacerbations. No acute events overnight. Saw patient at bedside this morning. Patient had just worked with physical therapy and was getting back in bed when I saw him. He was on 3 L nasal cannula at that time but was breathing comfortably and in no acute distress. Stated that he felt significantly better today than he did over the past few days. Reported good urine output with IV diuresis. Denies any fevers or chills. No other acute concerns morning. Objective Data Objective Data Vital Signs: Vital Signs Temp Pulse Resp BP Pulse Ox O2 Del Method O2 Flow Rate 97.8 F 78 18 143/57 H 98 Nasal Cannula 2 01/02/24 10:57 01/02/24 10:57 01/02/24 10:57 01/02/24 10:57 01/02/24 10:57 01/02/24 10:57 01/02/24 10:57 Oxygen Flow Rate (L/min) 2 Oxygen Delivery Method Nasal Cannula Weight: 69 kg Body Mass Index (BMI) 24.5 Intake & Output: Intake and Output for Last 24 Hours 12/31/23 01/01/24 01/02/24 23:59 23:59 23:59 Intake Total 675 / 875 300 / 300 Output Total 1450 / 1700 410 / 410 Balance -775 / -825 -110 / -110 Lab / Micro Data 01/02/24 06:23 01/02/24 06:23 Labs: Laboratory Results - last 24 hr 01/01/24 14:03: WBC 9.5, RBC 4.06 L, Hgb 11.3 L, Hct 36.0 L, MCV 88.7, MCH 27.8, MCHC 31.4 L, RDW Std Deviation 50.0 H, RDW Coeff of Bebeto 15.5 H, Plt Count 267, MPV 11.2, Immature Gran % (Auto) 0.200, Neut % (Auto) 76.5 H, Lymph % (Auto) 10.2 L, [place] % (Auto) 9.3, Eos % (Auto) 3.3, Baso % (Auto) 0.5, Absolute Neuts (auto) 7.3, Absolute Lymphs (auto) 0.97, Nucleated RBC % 0, D-Dimer Quant (PE/DVT) 1.12 H*, Sodium 136, Potassium 4.5, Chloride 104, Carbon Dioxide 29.0, Anion Gap 3 L, BUN 9, Creatinine 1.06, Estim Creat Clear Calc 55.57, Est GFR (MDRD) Af Amer 87, Est GFR (MDRD) Non-Af 72, BUN/Creatinine Ratio 8.5 L, Glucose 270 H, Hemoglobin A1c 9.4 H, Calcium 8.9, Troponin I High Sens 24, B-Natriuretic Peptide 969.5 H 01/01/24 15:19: POC Glucose 233 H 01/01/24 16:12: Magnesium 2.2, Troponin I High Sens 26 01/02/24 06:23: WBC 8.9, RBC 3.92 L, Hgb 10.6 L, Hct 34.6 L, MCV 88.3, MCH 27.0, MCHC 30.6 L, RDW Std Deviation 49.1 H, RDW Coeff of [place]eb[place] 15.5 H, Plt Count 263, MPV 11.5, Immature Gran % (Auto) 0.600, Neut % (Auto) 91.0 H, Lymph % (Auto) 6.3 L, [place] % (Auto) 1.9, Eos % (Auto) 0.0, Baso % (Auto) 0.2, Absolute Neuts (auto) 8.1 H, Absolute Lymphs (auto) 0.56 L, Nucleated RBC % 0, Sodium 134 L, Potassium 3.5, Chloride 99, Carbon Dioxide 29.0, Anion Gap 6, BUN 16, Creatinine 1.18, Estim Creat Clear Calc 46.56, Est GFR (MDRD) Af Amer 77, Est GFR (MDRD) Non-Af 63, BUN/Creatinine Ratio 13.6, Glucose 386 H, Calcium 8.1 L, Triglycerides 34, Cholesterol 84, LDL Cholesterol 44, VLDL Cholesterol 7, HDL Cholesterol 33 L, TSH 0.19 L 01/02/24 10:06: POC Glucose 343 H Micro: Microbiology 01/01/24 19:22 Mucosa - Nasopharyngeal Respiratory Panel (PCR) - Final Rhinovirus 01/01/24 19:22 Mucosa - Nasopharyngeal SARS-CoV-2, Influenza & RSV (PCR) - Final Radiography Diagnostic Testing: Radiology Impression Chest X-Ray 01/01/24 13:51 IMPRESSION: Findings suggest a mild degree of vascular congestion. Atelectasis at the left lung base and right upper lobe. Electronically Signed: Angel Robins MD at 14:58 EDT , Chest CTA 01/01/24 14:28 IMPRESSION: Bilateral pleural effusions right greater than left with findings suggestive of CHF and atelectasis along the anterior aspect of the right middle lobe and lingular segment of the left upper lobe. Electronically Signed: Angel Robins MD at 15:01 EDT , Physical Exam Const alert, oriented x3, no apparent distress and average body habitus Constitutional Narrative: Elderly male, mildly fatigued appearing, otherwise sitting up comfortably in bed, conversing normally, no acute distress. General Appearance: cooperative and comfortable HEENT normocephalic, head/scalp atraumatic, hearing grossly normal bilaterally, nasal mucous membranes and turbinates normal and moist oral mucous membranes Eyes PERRL, EOMs intact bilaterally and conjunctivae normal Neck full ROM Chest inspection of chest normal Resp normal respiratory effort and no use of accessory muscles Resp Narrative: Mildly decreased breath sounds bilaterally with mild wheezing noted in upper airways bilaterally. No crackles noted. Breathing comfortably on 3 L nasal cannula at rest. Cardio regular rate, regular rhythm, no murmurs and peripheral pulses 2+ throughout GI normal to inspection, nondistended, normoactive bowel sounds, soft to palpation, non-tender and non-distended Back/Spine normal ROM Extremity normal to inspection, full ROM and no pedal edema Skin no rashes or lesions noted Neuro moves all extremities and no focal motor deficits Speech: speech normal Psych mental status grossly normal Assessment & Plan Assessment/Plan (1) COPD exacerbation: (2) Acute exacerbation of CHF (congestive heart failure): (3) Rhinovirus infection: (4) Debility: (5) Hypoxia: PLAN: Plan Patient is a 78-year-old male who presented [facility] ED on 01/01/2024 with URI symptoms and worsening shortness of breath on exertion. 1. COPD exacerbation with acute hypoxia secondary to rhinovirus infection ? Positive for rhinovirus on admit. CTA chest showed no PE, bilateral pleural effusions right greater than left and pulmonary edema. Sputum culture ordered, has not provided sample yet. Continue IV Solu-Medrol 40 mg twice daily and scheduled nebs for now. Will complete 3-day course of IV azithromycin as well. Wean supplemental oxygen as able, notably is not on home oxygen; will likely require oxygen qualification testing prior to discharge. 2. CHF exacerbation ? CTA chest on admit with findings suggestive of CHF as noted above. BNP 969, slightly elevated from previous values. Unclear etiology for acute exacerbation, rhinovirus infection may be playing a role. Most recent echo on 11/02/2023 showed EF 50%, stage II diastolic dysfunction, hypokinetic apex, mild enlarged LA, no significant valve disease. Has had good urine output with IV diuresis since admission. Continue IV Lasix 40 mg twice daily for now. Monitor daily BMP and urine output. Okay to continue home propranolol and spironolactone as noted below. 3. Acute on chronic debility ? PT/OT/case management following. Patient lives in assisted living facility, suspect weakness worse than baseline is secondary to rhinovirus infection with COPD and CHF exacerbations as noted above. May need SNF on discharge, will continue to monitor. 4. Poorly controlled type 2 diabetes mellitus with hyperglycemia, diabetic neuropathy ? Home regimen of insulin glargine 44 units daily. A1c 9.4% on admit, similar to previous A1c values dating back to 2017. Blood glucose 270 on admit. Is on IV steroids as noted above. Will treat with Lantus 30 units daily, Humalog 10 units with meals plus sliding scale insulin; adjust as needed. Continue home gabapentin. 5. Chronic mild normocytic anemia ? Hemoglobin 11.3 on admit, mildly decreased to 10.6 on hospital day 2. Baseline appears to be around 11-12. Will obtain iron studies, B12 and folate for further evaluation. Chronic medical conditions: ? GERD: Continue home PPI. ? Anxiety/depression: Stable. Continue home citalopram. ? Hypertension: Continue home spironolactone. On IV Lasix as noted above. ? Hyperlipidemia: Lipid profile on admit with good lipid control. Continue home statin. ? Chronic low back pain secondary to osteoarthritis: Continue Tylenol as needed. ? Essential tremor: Continue home propranolol. DVT prophylaxis: Lovenox CODE STATUS: DNR CCA, DNI Expected disposition: Back to assisted living versus SNF, TBD Total clinical time spent by myself addressing the patient's medical issues, reviewing all the data, and collaborating with patient's care team: 35 minutes. Charges/Coding Visit Charges Inpatient E&M: 46481 Subs Hosp L2
[2024-01-02 11:45] LABS: Bedside Glucose 478 mg/dL (74-106)
[2024-01-02] MEDS: Insulin Glargine-YFGN 100 UNIT/ML Pen 30 UNIT SC (11:50)
[2024-01-02] MEDS: Insulin Lispro 100 UNIT/ML INSULN.PEN 18 UNIT SC (11:50)
[2024-01-02] MEDS: Insulin Lispro 100 UNIT/ML INSULN.PEN 10 UNIT SC ×2 (13:02→18:01)
[2024-01-02] MEDS: Insulin Lispro 100 UNIT/ML INSULN.PEN SC ×3 (13:02→21:25)
[2024-01-02 13:08] LABS: Bedside Glucose 446 mg/dL (74-106)
[2024-01-02 14:56] LABS: Ferritin 215 ng/mL (26-388); Iron 28 ug/dL (65-175); Iron Binding Capacity,Total 230 ug/dL (250-450); PERCENT IRON SATURATION 12.2 % (15.0-55.0)
--- NOTE | 2024-01-02 17:03 | CASEMGMT ---
Social Work Received notice from RN ANDREW that patient is from [facility]. This bid writer is familiar with patient from recent stay at [facility]. Met with patient in room, introducing to self and role. Patient's daughter Risa, present in room. Patient shares that Risa is the DON at [facility] in [place], [place]. Explored patient's wishes for discharge level of care, and referenced PT/OT working with patient today, as well as notation in chart that patient discharged from [facility] with [facility] in place, to follow upon patient's return to the [place] in November 2023. Patient reports had HHC therapy for 3 weeks, and still does the exercises daily. Patient reports to have weights on walker at his [place], so does much better when has the weights available to him. Patient reports he wants to return home, to [facility]. Patient declines reinstating any referral back to skilled HHC therapy at this time. Patient and daughter express interest in having a referral to [facility] ([facility]) program, reporting would like this connection for when patient becomes ready for hospice, as well as to help manage patient's chronic conditions. Patient reports would like to do whatever he can to stay out of the hospital and in his [place] apartment at [facility]. Daughter reports will be speaking with [facility] staff about keeping up with patient's daily weights related to CHF. Patient does not have any O2 or a nebulizer at the [place], so if needed at discharge will require testing and orders/RX as indicated. This bid writer agreed to send message to hospitalist about request for palliative care consult. Educated that if order obtained, the service would likely follow up after discharge, which patient and daughter both agreeable to. Patient is concerned about a ed case manager visit through [facility], which is supposes to occur Thursday morning at 0900. Risa reports plan to help patient try and coordinate the ed case manager coming to the hospital for visit, should patient remain in hospital through the weekend. Backline message to Dr. Guerrero about patient/family request for palliative care (not hospice) referral, for added support back [facility]. Order given for palliative care consult. Plan: Palliative Care Referral Will check in with [facility] after the weekend to see if patient is still active with nursing, or closed out completely (as EMR indicates patient may still be active with HHC). Patient plans to return to [facility] for therapy. Watch for Home O2 and nebulizer needs. Care Management team (SILVA/PHANI MORALES) to follow. -SARWAT Stout
[2024-01-02 17:11] LABS: Bedside Glucose 307 mg/dL (74-106)
[2024-01-02] MEDS: Gabapentin 400 MG Capsule PO (21:24)
[2024-01-02] MEDS: Atorvastatin Calcium 40 MG Tablet PO (21:24)
[2024-01-02 22:08] LABS: Bedside Glucose 253 mg/dL (74-106)
[2024-01-03] VITALS (9 sets, daily range): BP systolic 129–148; BP diastolic 50–81; PULSE 61–80; RESP 16–22; TEMP 36.1–36.5; O2SAT 89–100; BMI 24.9
[2024-01-03] MEDS: Ipratropium/Albuterol Sulfate 3 ML AMPUL.NEB INHALATION ×3 (07:32→18:51)
[2024-01-03] MEDS: Insulin Lispro 100 UNIT/ML INSULN.PEN 10 UNIT SC ×3 (08:50→17:47)
[2024-01-03] MEDS: Insulin Lispro 100 UNIT/ML INSULN.PEN SC ×4 (08:51→21:19)
[2024-01-03] MEDS: Cholecalciferol (Vit D3) 125 MCG CAPSULE (5,000 UNITS) PO (08:53)
[2024-01-03] MEDS: Aspirin E.C. 81 MG Tablet PO (08:53)
[2024-01-03 09:12] LABS: Anion Gap 7 (5-15); BUN 31 mg/dL (7-18); BUN/Creat Ratio 26.1 RATIO (10-20); Calcium,Total 8.5 mg/dL (8.5-10.1); Chloride 98 mmol/L (98-107); Creatinine, Serum 1.19 mg/dL (0.70-1.30); EST Glomerular Filtration Rate 63 mL/min (>60); Est Glom Filt Rate - Afr Amer 76 mL/min (>60); Estimated Creatinine Clearance 46.17 ml/min; Glucose 364 mg/dL (74-106); Potassium 3.9 mmol/L (3.5-5.1); Sodium Level 133 mmol/L (136-145)
[2024-01-03 09:36] LABS: Bedside Glucose 360 mg/dL (74-106)
[2024-01-03] MEDS: Glycerin/Hypromellose/PEG400 15 ml Bottle 1 DRP EACH EYE ×2 (10:36→21:17)
[2024-01-03] MEDS: Propranolol 40 MG Tablet 80 MG PO ×2 (10:37→21:16)
[2024-01-03] MEDS: Azithromycin 250 MG Tablet 500 MG PO (10:37)
[2024-01-03] MEDS: Citalopram 20 MG Tablet PO (10:37)
[2024-01-03] MEDS: guaiFENesin/D-Methorphan TAB.SR.12H 2 TABLET PO ×2 (10:37→21:16)
[2024-01-03] MEDS: Famotidine 20 MG Tablet PO (10:37)
[2024-01-03] MEDS: Furosemide 40 MG/4 ML Vial IV ×2 (10:38→17:48)
--- NOTE | 2024-01-03 11:04 | PCM.PN.HOSP ---
Reason for Visit Reason for Visit: Diagnoses Other viral infections of unspecified site (01/01/24) Heart failure, unspecified (01/01/24) Chronic obstructive pulmonary disease with (acute) exacerbation (01/01/24) Hypoxemia (01/01/24) Other malaise (01/01/24) Subjective Subjective No acute events overnight. Patient seen at bedside this morning. Was sitting up comfortably in bed, in no acute distress. Was breathing comfortably on 2 L nasal cannula at rest with good oxygen saturations. Stated today that he feels significantly better than admission and improved from yesterday as well. He has continued to have good urine output on IV Lasix. He is hoping to home to his assisted living facility in the next few days as he has things to take care of. No other new concerns this morning. Objective Data Objective Data Vital Signs: Vital Signs Temp Pulse Resp BP Pulse Ox O2 Del Method O2 Flow Rate 97.1 F L 72 18 136/81 H 97 Nasal Cannula 2 01/03/24 10:26 01/03/24 10:26 01/03/24 10:26 01/03/24 10:26 01/03/24 10:26 01/03/24 10:28 01/03/24 10:28 Oxygen Flow Rate (L/min) 2 Oxygen Delivery Method Nasal Cannula Weight: 70 kg Body Mass Index (BMI) 24.9 Intake & Output: Intake and Output for Last 24 Hours 01/01/24 01/02/24 01/03/24 23:59 23:59 23:59 Intake Total 675 / 875 1080 / 1560 720 / 720 Output Total 1450 / 1700 1410 / 1710 550 / 550 Balance -775 / -825 -330 / -150 170 / 170 Lab / Micro Data 01/02/24 06:23 01/03/24 08:41 Labs: Laboratory Results - last 24 hr 01/02/24 11:25: POC Glucose 478 H* 01/02/24 12:51: POC Glucose 446 H 01/02/24 14:13: Iron 28 L, TIBC 230 L, Iron Saturation 12.2 L, Ferritin 215, Folate 19.60 01/02/24 16:54: POC Glucose 307 H 01/02/24 21:16: POC Glucose 253 H 01/03/24 08:41: Sodium 133 L, Potassium 3.9, Chloride 98, Carbon Dioxide 28.0, Anion Gap 7, BUN 31 H, Creatinine 1.19, Estim Creat Clear Calc 46.17, Est GFR (MDRD) Af Amer 76, Est GFR (MDRD) Non-Af 63, BUN/Creatinine Ratio 26.1 H, Glucose 364 H, Calcium 8.5 01/03/24 08:45: POC Glucose 360 H Micro: Microbiology 01/01/24 19:22 Mucosa - Nasopharyngeal Respiratory Panel (PCR) - Final Rhinovirus 01/01/24 19:22 Mucosa - Nasopharyngeal SARS-CoV-2, Influenza & RSV (PCR) - Final Physical Exam Const alert, oriented x3, no apparent distress and average body habitus Constitutional Narrative: Elderly male, mildly fatigued appearing, otherwise sitting up comfortably in bed, conversing normally, no acute distress. General Appearance: cooperative and comfortable HEENT normocephalic, head/scalp atraumatic, hearing grossly normal bilaterally, nasal mucous membranes and turbinates normal and moist oral mucous membranes Eyes PERRL, EOMs intact bilaterally and conjunctivae normal Neck full ROM Chest inspection of chest normal Resp normal respiratory effort and no use of accessory muscles Resp Narrative: Mildly decreased breath sounds bilaterally. No wheezing noted today. No crackles noted. Breathing comfortably on 2 L nasal cannula at rest. Improving. Cardio regular rate, regular rhythm, no murmurs and peripheral pulses 2+ throughout GI normal to inspection, nondistended, normoactive bowel sounds, soft to palpation, non-tender and non-distended Back/Spine normal ROM Extremity normal to inspection, full ROM and no pedal edema Skin no rashes or lesions noted Neuro moves all extremities and no focal motor deficits Speech: speech normal Psych mental status grossly normal Assessment & Plan Assessment/Plan (1) COPD exacerbation: (2) Acute exacerbation of CHF (congestive heart failure): (3) Rhinovirus infection: (4) Debility: (5) Hypoxia: PLAN: Plan Patient is a 78-year-old male who presented [facility] ED on 01/01/2024 with URI symptoms and worsening shortness of breath on exertion. 1. COPD exacerbation with acute hypoxia secondary to rhinovirus infection ? Positive for rhinovirus on admit. CTA chest showed no PE, bilateral pleural effusions right greater than left and pulmonary edema. Sputum culture ordered, has not provided sample yet. Continue IV Solu-Medrol 40 mg twice daily and scheduled nebs for now, will plan to de-escalate to p.o. steroids and as needed nebs tomorrow. Will complete 3-day course of IV azithromycin as well. Wean supplemental oxygen as able, notably is not on home oxygen; will likely require oxygen qualification testing prior to discharge. 2. CHF exacerbation ? CTA chest on admit with findings suggestive of CHF as noted above. BNP 969, slightly elevated from previous values. Unclear etiology for acute exacerbation, rhinovirus infection may be playing a role. Most recent echo on 11/02/2023 showed EF 50%, stage II diastolic dysfunction, hypokinetic apex, mild enlarged LA, no significant valve disease. Has had good urine output with IV diuresis since admission. Continue IV Lasix 40 mg twice daily for today, will de-escalate to oral Lasix tomorrow. Monitor daily BMP and urine output. Okay to continue home propranolol and spironolactone as noted below. 3. Acute on chronic debility ? PT/OT/case management following. Patient lives in assisted living facility, suspect weakness worse than baseline is secondary to rhinovirus infection with COPD and CHF exacerbations as noted above. May need SNF on discharge, will continue to monitor. 4. Poorly controlled type 2 diabetes mellitus with hyperglycemia, diabetic neuropathy ? Home regimen of insulin glargine 44 units daily. A1c 9.4% on admit, similar to previous A1c values dating back to 2017. Blood glucose 270 on admit. Is on IV steroids as noted above. Will treat with Lantus 30 units daily, Humalog 10 units with meals plus sliding scale insulin; adjust as needed. Continue home gabapentin. 5. Chronic mild normocytic anemia ? Hemoglobin 11.3 on admit, mildly decreased to 10.6 on hospital day 2. Baseline appears to be around 11-12. Iron studies consistent with mild iron deficiency anemia. Folate normal, B12 pending. Follow-up CBC tomorrow. Chronic medical conditions: ? GERD: Continue home PPI. ? Anxiety/depression: Stable. Continue home citalopram. ? Hypertension: Continue home spironolactone. On IV Lasix as noted above. ? Hyperlipidemia: Lipid profile on admit with good lipid control. Continue home statin. ? Chronic low back pain secondary to osteoarthritis: Continue Tylenol as needed. ? Essential tremor: Continue home propranolol. DVT prophylaxis: Lovenox CODE STATUS: DNR CCA, DNI Expected disposition: Back to assisted living versus SNF, 1 to 2 days Total clinical time spent by myself addressing the patient's medical issues, reviewing all the data, and collaborating with patient's care team: 35 minutes. Charges/Coding Visit Charges Inpatient E&M: 03369 Subs Hosp L2
[2024-01-03 11:49] LABS: Bedside Glucose 320 mg/dL (74-106)
[2024-01-03] MEDS: Spironolactone 25 MG Tablet 12.5 MG PO (12:13)
[2024-01-03] MEDS: Insulin Glargine-YFGN 100 UNIT/ML Pen 30 UNIT SC (12:13)
[2024-01-03 17:16] LABS: Bedside Glucose 184 mg/dL (74-106)
[2024-01-03] MEDS: 0.9% Saline Lock 10 ML Syringe IV (17:48)
[2024-01-03] MEDS: Gabapentin 400 MG Capsule PO (21:16)
[2024-01-03] MEDS: Acetaminophen 325 MG Tablet 650 MG PO (21:16)
[2024-01-03] MEDS: Atorvastatin Calcium 40 MG Tablet PO (21:24)
[2024-01-03 21:54] LABS: Bedside Glucose 300 mg/dL (74-106)
[2024-01-04 03:45] VITALS: BP 149/48; PULSE 69; RESP 18; TEMP 36.3; O2SAT 96
[2024-01-04 06:00] VITALS: BMI 24.7
[2024-01-04 06:08] LABS: Hematocrit 33.4 % (40-54); Hemoglobin 10.7 g/dL (13.0-16.5); Mean Corpuscular Hgb 27.4 pg (27.0-32.0); Mean Corpuscular Volume 85.6 fL (80-94); Mean Platelet Vol. 11.5 fl (6.2-12.0); Platelet Count 332 K/mm3 (150-450); RBC Distribution Width CV 15.7 % (11.6-14.6); RBC Distribution Width SD 48.4 fl (35.1-43.9); White Blood Count 20.7 K/mm3 (4.4-11.0)
[2024-01-04 06:33] LABS: Anion Gap 8 (5-15); BUN 30 mg/dL (7-18); BUN/Creat Ratio 31.1 RATIO (10-20); Calcium,Total 8.4 mg/dL (8.5-10.1); Chloride 101 mmol/L (98-107); Creatinine, Serum 0.96 mg/dL (0.70-1.30); EST Glomerular Filtration Rate 80 mL/min (>60); Est Glom Filt Rate - Afr Amer 97 mL/min (>60); Estimated Creatinine Clearance 57.23 ml/min; Glucose 256 mg/dL (74-106); Potassium 3.2 mmol/L (3.5-5.1); Sodium Level 138 mmol/L (136-145)
[2024-01-04] MEDS: Potassium Chloride Oral Tablet 20 MEQ 60 MEQ PO (06:56)
[2024-01-04 07:09] VITALS: PULSE 77; RESP 20; O2SAT 97
[2024-01-04] MEDS: Ipratropium/Albuterol Sulfate 3 ML AMPUL.NEB INHALATION ×2 (07:09→13:03)
[2024-01-04 07:15] LABS: Bedside Glucose 303 mg/dL (74-106)
[2024-01-04 08:25] VITALS: BP 168/68; PULSE 67; RESP 18; TEMP 36.6; O2SAT 97
[2024-01-04] MEDS: Insulin Lispro 100 UNIT/ML INSULN.PEN SC ×2 (08:27→12:28)
[2024-01-04] MEDS: Propranolol 40 MG Tablet 80 MG PO (08:27)
[2024-01-04] MEDS: Insulin Lispro 100 UNIT/ML INSULN.PEN 10 UNIT SC ×2 (08:27→12:28)
[2024-01-04] MEDS: Famotidine 20 MG Tablet PO (08:28)
[2024-01-04] MEDS: Cholecalciferol (Vit D3) 125 MCG CAPSULE (5,000 UNITS) PO (08:28)
[2024-01-04] MEDS: Senna/Docusate Sodium 1 Tablet 2 TABLET PO (08:28)
[2024-01-04] MEDS: Azithromycin 250 MG Tablet 500 MG PO (08:28)
[2024-01-04] MEDS: guaiFENesin/D-Methorphan TAB.SR.12H 2 TABLET PO (08:28)
[2024-01-04] MEDS: Aspirin E.C. 81 MG Tablet PO (08:29)
[2024-01-04] MEDS: Furosemide 40 MG Tablet PO (08:29)
[2024-01-04] MEDS: Citalopram 20 MG Tablet PO (08:29)
[2024-01-04] MEDS: Spironolactone 25 MG Tablet 12.5 MG PO (08:31)
[2024-01-04] MEDS: Glycerin/Hypromellose/PEG400 15 ml Bottle 1 DRP EACH EYE (08:31)
[2024-01-04] MEDS: predniSONE 20 MG Tablet 40 MG PO (08:40)
[2024-01-04 08:55] LABS: Bedside Glucose 337 mg/dL (74-106)
[2024-01-04 09:07] LABS: Vitamin B12 1198 pg/mL (211-911)
[2024-01-04 09:14] VITALS: O2SAT 95; O2SAT 96
--- NOTE | 2024-01-04 09:25 | CASEMGMT ---
Discharge Planning Updates faxed to [facility]. Fax confirmation rec'd. Nina Hernandez DC Planning Asst.
--- NOTE | 2024-01-04 11:32 | DS.PCM_ITS ---
Providers Date of Admission: 01/01/24 Primary Care Physician: Dr. Kyle Aguila MD Reason For Visit: CHF AND COPD EXA Diagnosis Discharge Diagnosis (1) COPD exacerbation: Status: Chronic Code(s): J44.1 - Chronic obstructive pulmonary disease with (acute) exacerbation (2) Acute exacerbation of CHF (congestive heart failure): Status: Chronic Code(s): I50.9 - Heart failure, unspecified (3) Rhinovirus infection: Status: Acute Code(s): B34.8 - Other viral infections of unspecified site (4) Debility: Status: Acute Code(s): R53.81 - Other malaise (5) Hypoxia: Status: Acute Code(s): R09.02 - Hypoxemia Plan Patient is a 78-year-old male who presented [facility] ED on 01/01/2024 with URI symptoms and worsening shortness of breath on exertion. 1. COPD exacerbation with acute hypoxia secondary to rhinovirus infection ? Positive for rhinovirus on admit. CTA chest showed no PE, bilateral pleural effusions right greater than left and pulmonary edema. Sputum culture ordered, has not provided sample yet. Continue IV Solu-Medrol 40 mg twice daily and scheduled nebs for now, will plan to de-escalate to p.o. steroids and as needed nebs tomorrow. Will complete 3-day course of IV azithromycin as well. Wean supplemental oxygen as able, notably is not on home oxygen; will likely require oxygen qualification testing prior to discharge. 2. CHF exacerbation ? CTA chest on admit with findings suggestive of CHF as noted above. BNP 969, slightly elevated from previous values. Unclear etiology for acute exacerbation, rhinovirus infection may be playing a role. Most recent echo on 11/02/2023 showed EF 50%, stage II diastolic dysfunction, hypokinetic apex, mild enlarged LA, no significant valve disease. Has had good urine output with IV diuresis since admission. Continue IV Lasix 40 mg twice daily for today, will de-escalate to oral Lasix tomorrow. Monitor daily BMP and urine output. Okay to continue home propranolol and spironolactone as noted below. 3. Acute on chronic debility ? PT/OT/case management following. Patient lives in assisted living facility, suspect weakness worse than baseline is secondary to rhinovirus infection with COPD and CHF exacerbations as noted above. May need SNF on discharge, will continue to monitor. 4. Poorly controlled type 2 diabetes mellitus with hyperglycemia, diabetic neuropathy ? Home regimen of insulin glargine 44 units daily. A1c 9.4% on admit, similar to previous A1c values dating back to 2017. Blood glucose 270 on admit. Is on IV steroids as noted above. Will treat with Lantus 30 units daily, Humalog 10 units with meals plus sliding scale insulin; adjust as needed. Continue home gabapentin. 5. Chronic mild normocytic anemia ? Hemoglobin 11.3 on admit, mildly decreased to 10.6 on hospital day 2. Baseline appears to be around 11-12. Iron studies consistent with mild iron deficiency anemia. Folate normal, B12 pending. Follow-up CBC tomorrow. Chronic medical conditions: ? GERD: Continue home PPI. ? Anxiety/depression: Stable. Continue home citalopram. ? Hypertension: Continue home spironolactone. On IV Lasix as noted above. ? Hyperlipidemia: Lipid profile on admit with good lipid control. Continue home statin. ? Chronic low back pain secondary to osteoarthritis: Continue Tylenol as needed. ? Essential tremor: Continue home propranolol. DVT prophylaxis: Lovenox CODE STATUS: DNR CCA, DNI Expected disposition: Back to assisted living versus SNF, 1 to 2 days Total clinical time spent by myself addressing the patient's medical issues, reviewing all the data, and collaborating with patient's care team: 35 minutes. Medications at Discharge Home Medications aspirin 81 mg tablet,delayed release (Adult Low Dose Aspirin) 81 mg PO QDAY preventative 08/19/17 atorvastatin 40 mg tablet 40 mg PO QHS cholesterol 08/19/17 calcium carbonate (Tums Ultra) 800 mg PO TID PRN Acid Reflux 11/29/20 cholecalciferol (vitamin D3) 125 mcg (5,000 unit) capsule 125 mcg PO DAILY vitamin 11/29/20 famotidine 20 mg tablet 20 mg PO DAILY stomach 11/29/20 gabapentin 400 mg capsule 400 mg PO QHS neuropathy 11/29/20 citalopram 20 mg tablet (Celexa) 20 mg PO DAILY anxiety 11/01/23 potassium chloride 20 mEq tablet,extended release 40 meq PO DAILY potassium 11/01/23 furosemide 40 mg tablet 40 mg PO DAILY #0 tabs 11/19/23 spironolactone 25 mg tablet 12.5 mg (1/2 x 25 mg) PO DAILY #0 tabs 11/19/23 insulin glargine-yfgn 100 unit/mL (3 mL) subcutaneous pen 44 unit subcut DAILY Diabetes 01/01/24 polyvinyl alcohol 1.4 % eye drops (Artificial Tears (polyvinyl alcohol)) 1 drp EACH EYE BID 01/01/24 propranolol 80 mg tablet 80 mg PO BID 01/01/24 acetaminophen 325 mg tablet 650 mg PO Q8H PRN PRN fever or pain 01/02/24 Weight / BMI Weight Weight: 69.5 kg Body Mass Index (BMI) 24.7 ABG / Lab / Microbiology Data 01/04/24 04:24 01/04/24 04:24 Laboratory: Laboratory Results - last 24 hr 01/02/24 14:13: Vitamin B12 1198 H 01/03/24 11:26: POC Glucose 320 H 01/03/24 16:53: POC Glucose 184 H 01/03/24 21:08: POC Glucose 300 H 01/04/24 04:24: WBC 20.7 H, RBC 3.90 L, Hgb 10.7 L, Hct 33.4 L, MCV 85.6, MCH 27.4, MCHC 32.0, RDW Std Deviation 48.4 H, RDW Coeff of Bebeto 15.7 H, Plt Count 332, MPV 11.5, Sodium 138, Potassium 3.2 L, Chloride 101, Carbon Dioxide 29.0, Anion Gap 8, BUN 30 H, Creatinine 0.96, Estim Creat Clear Calc 57.23, Est GFR (MDRD) Af Amer 97, Est GFR (MDRD) Non-Af 80, BUN/Creatinine Ratio 31.1 H, G lucose 256 H, Calcium 8.4 L 01/04/24 06:54: POC Glucose 303 H 01/04/24 08:24: POC Glucose 337 H Microbiology: Microbiology 01/03/24 16:30 Sputum, Expectorated/Coughed Respiratory Culture - Preliminary Appears to be normal respiratory smith. Further studies to follow. 01/01/24 19:22 Mucosa - Nasopharyngeal Respiratory Panel (PCR) - Final Rhinovirus 01/01/24 19:22 Mucosa - Nasopharyngeal SARS-CoV-2, Influenza & RSV (PCR) - Final Meaningful Use Info Ischemic Stroke Statin Dosing Therapy Reference: STATIN DOSE THERAPY REFERENCE: * Patients > 75 years receive moderate or high dose statin therapy. * Patients 75 years or YOUNGER should receive HIGH intensity statin dose unless contraindicated. You will be required to document reason for non-treatment if statin daily dose does not meet guidelines. HIGH DOSE STATIN THERAPY DAILY Atorvastatin > than or = to 40 mg Rosuvastatin > than or = to 20 mg Amlodipine + Atorvastatin > than or = to 2.5/40 mg Ezetimibe + Simvastatin 10/80 mg Simvastatin 80mg Discharge Plan Admission Admit Date/Time: 01/01/24 16:09 Attending Provider: Alexander Barber Primary Care Provider: Kyle Aguila Consulting Providers: Vidal Li Discharge Orders/Prescriptions Prescriptions: No Action atorvastatin 40 mg tablet 40 mg PO QHS aspirin [Adult Low Dose Aspirin] 81 mg tablet,delayed release (DR/EC) 81 mg PO QDAY famotidine 20 mg tablet 20 mg PO DAILY gabapentin 400 mg capsule 400 mg PO QHS cholecalciferol (vitamin D3) 125 mcg (5,000 unit) capsule 125 mcg PO DAILY calcium carbonate [Tums Ultra] 400 mg calcium (1,000 mg) tablet,chewable 800 mg PO TID PRN (Reason: Acid Reflux) potassium chloride 20 mEq tablet extended release 40 meq PO DAILY citalopram [Celexa] 20 mg tablet 20 mg PO DAILY furosemide 40 mg Tablet 40 mg PO DAILY Qty: 0 0RF spironolactone 25 mg Tablet 12.5 mg PO DAILY Qty: 0 0RF propranolol 80 mg tablet 80 mg PO BID polyvinyl alcohol [Artificial Tears (polyvin alc)] 1.4 % drops 1 drp EACH EYE BID insulin glargine-yfgn 100 unit/mL (3 mL) Insulin Pen 44 unit subcut DAILY Rx Instructions: NOON acetaminophen 325 mg tablet 650 mg PO Q8H PRN PRN (Reason: fever or pain) Referrals / Follow Up: Kyle Aguila MD [Primary Care Provider] -
--- NOTE | 2024-01-04 11:32 | PCM.DC.SUM ---
Providers Date of Admission: 01/01/24 Date of Discharge: 01/04/24 Primary Care Physician: Dr. Kyle Aguila MD Reason For Visit: CHF AND COPD EXA Diagnosis Discharge Diagnosis (1) COPD exacerbation: Status: Chronic Code(s): J44.1 - Chronic obstructive pulmonary disease with (acute) exacerbation (2) Acute exacerbation of CHF (congestive heart failure): Status: Chronic Code(s): I50.9 - Heart failure, unspecified (3) Rhinovirus infection: Status: Acute Code(s): B34.8 - Other viral infections of unspecified site (4) Debility: Status: Acute Code(s): R53.81 - Other malaise (5) Hypoxia: Status: Acute Code(s): R09.02 - Hypoxemia Medications at Discharge Home Medications aspirin 81 mg tablet,delayed release (Adult Low Dose Aspirin) 81 mg PO QDAY preventative 08/19/17 atorvastatin 40 mg tablet 40 mg PO QHS cholesterol 08/19/17 calcium carbonate (Tums Ultra) 800 mg PO TID PRN Acid Reflux 11/29/20 cholecalciferol (vitamin D3) 125 mcg (5,000 unit) capsule 125 mcg PO DAILY vitamin 11/29/20 famotidine 20 mg tablet 20 mg PO DAILY stomach 11/29/20 gabapentin 400 mg capsule 400 mg PO QHS neuropathy 11/29/20 citalopram 20 mg tablet (Celexa) 20 mg PO DAILY anxiety 11/01/23 potassium chloride 20 mEq tablet,extended release 40 meq PO DAILY potassium 11/01/23 furosemide 40 mg tablet 40 mg PO DAILY #0 tabs 11/19/23 spironolactone 25 mg tablet 12.5 mg (1/2 x 25 mg) PO DAILY #0 tabs 11/19/23 insulin glargine-yfgn 100 unit/mL (3 mL) subcutaneous pen 44 unit subcut DAILY Diabetes 01/01/24 polyvinyl alcohol 1.4 % eye drops (Artificial Tears (polyvinyl alcohol)) 1 drp EACH EYE BID 01/01/24 propranolol 80 mg tablet 80 mg PO BID 01/01/24 acetaminophen 325 mg tablet 650 mg PO Q8H PRN PRN fever or pain 01/02/24 prednisone 20 mg tablet 40 mg (2 x 20 mg) PO DAILY 2 days #4 tabs 01/04/24 Hospital Course Operations None Procedures EKG and - (Chest x-ray, CTA chest) Summary of Care Provided Minutes Spent on Discharge: 35 Hospital Course: Patient is a 78-year-old male who presented [facility] ED on 01/01/2024 with URI symptoms and worsening shortness of breath on exertion. Hospital course as noted below. Patient discharged back to assisted living facility in stable condition on 01/03. 1. COPD exacerbation with acute hypoxia secondary to rhinovirus infection ? Positive for rhinovirus on admit. CTA chest showed no PE, bilateral pleural effusions right greater than left and pulmonary edema. Sputum culture ordered but not able to provide sample. Treated with IV Solu-Medrol 40 mg twice daily and scheduled DuoNebs while inpatient with significant improvement. Also treated with 3-day course of IV azithromycin while inpatient. Discharged on prednisone 40 mg daily to complete 5-day course of steroids total. Completed amatory O2 testing prior to discharge and did not require any oxygen on discharge. 2. CHF exacerbation ? CTA chest on admit with findings suggestive of CHF as noted above. BNP 969, slightly elevated from previous values. Unclear etiology for acute exacerbation, rhinovirus infection may be playing a role. Most recent echo on 11/02/2023 showed EF 50%, stage II diastolic dysfunction, hypokinetic apex, mild enlarged LA, no significant valve disease. Treated with IV Lasix 40 mg twice daily during hospitalization with good urine output and improvement in Lyme overload and oxygenation status. Okay to restart home p.o. Lasix 40 mg daily on discharge. Continue home propranolol and spironolactone. 3. Acute on chronic debility ? PT/OT/case management followed. Patient lives in assisted living facility, suspected weakness worse than baseline was secondary to rhinovirus infection with COPD and CHF exacerbations as noted above. Had good improvement in functional status while hospitalized and denied any home health care needs on discharge, was stable for discharge back to assisted living facility on 01/03. 4. Poorly controlled type 2 diabetes mellitus with hyperglycemia, diabetic neuropathy ? Home regimen of insulin glargine 44 units daily. A1c 9.4% on admit, similar to previous A1c values dating back to 2017. Blood glucose 270 on admit. Treated with Lantus 30 units daily, Humalog 10 units with meals plus sliding scale insulin while inpatient with fairly good sugar control. Notably will be on prednisone for another 2 days on discharge so may have mildly elevated sugars because of this. Okay to resume home regimen on discharge. 5. Chronic mild normocytic anemia ? Hemoglobin 11.3 on admit, mildly decreased to 10.6 on hospital day 2 but then stable. Baseline appears to be around 11-12. Iron studies consistent with mild iron deficiency anemia. Folate and B12 normal. Can consider p.o. iron supplement in outpatient setting as needed. Chronic medical conditions: ? GERD: Continue home PPI. ? Anxiety/depression: Stable. Continue home citalopram. ? Hypertension: Continue home spironolactone. On IV Lasix as noted above. ? Hyperlipidemia: Lipid profile on admit with good lipid control. Continue home statin. ? Chronic low back pain secondary to osteoarthritis: Continue Tylenol as needed. ? Essential tremor: Continue home propranolol. Total clinical time spent by myself addressing the patient's medical issues, reviewing all the data, and collaborating with patient's care team: 35 minutes. Physical Exam Const alert, oriented x3, no apparent distress and average body habitus Constitutional Narrative: Elderly male, sitting up comfortably in bedside chair, conversing normally, no acute distress. Much improved from admission. General Appearance: cooperative and comfortable HEENT normocephalic, head/scalp atraumatic, hearing grossly normal bilaterally, nasal mucous membranes and turbinates normal and moist oral mucous membranes Eyes PERRL, EOMs intact bilaterally and conjunctivae normal Neck full ROM Chest inspection of chest normal Resp normal respiratory effort and no use of accessory muscles Resp Narrative: Mildly decreased breath sounds bilaterally. No wheezing noted. No crackles noted. Breathing comfortably on room air at rest. Much improved from admission. Cardio regular rate, regular rhythm, no murmurs and peripheral pulses 2+ throughout GI normal to inspection, nondistended, normoactive bowel sounds, soft to palpation, non-tender and non-distended Back/Spine normal ROM Extremity normal to inspection, full ROM and no pedal edema Skin no rashes or lesions noted Neuro moves all extremities and no focal motor deficits Speech: speech normal Psych mental status grossly normal Weight / BMI Weight Weight: 69.5 kg Body Mass Index (BMI) 24.7 ABG / Lab / Microbiology Data 01/04/24 04:24 01/04/24 04:24 Laboratory: Laboratory Results - last 24 hr 01/02/24 14:13: Vitamin B12 1198 H 01/03/24 11:26: POC Glucose 320 H 01/03/24 16:53: POC Glucose 184 H 01/03/24 21:08: POC Glucose 300 H 01/04/24 04:24: WBC 20.7 H, RBC 3.90 L, Hgb 10.7 L, Hct 33.4 L, MCV 85.6, MCH 27.4, MCHC 32.0, RDW Std Deviation 48.4 H, RDW Coeff of Bebeto 15.7 H, Plt Count 332, MPV 11.5, Sodium 138, Potassium 3.2 L, Chloride 101, Carbon Dioxide 29.0, Anion Gap 8, BUN 30 H, Creatinine 0.96, Estim Creat Clear Calc 57.23, Est GFR (MDRD) Af Amer 97, Est GFR (MDRD) Non-Af 80, BUN/Creatinine Ratio 31.1 H, Glucose 256 H, Calcium 8.4 L 01/04/24 06:54: POC Glucose 303 H 01/04/24 08:24: POC Glucose 337 H Microbiology: Microbiology 01/03/24 16:30 Sputum, Expectorated/Coughed Respiratory Culture - Preliminary Appears to be normal respiratory smith. Further studies to follow. 01/01/24 19:22 Mucosa - Nasopharyngeal Respiratory Panel (PCR) - Final Rhinovirus 01/01/24 19:22 Mucosa - Nasopharyngeal SARS-CoV-2, Influenza & RSV (PCR) - Final Meaningful Use Info Meaningful Use Meaningful Use Diagnoses (Choose all that apply): None applicable Ischemic Stroke Statin Dosing Therapy Reference: STATIN DOSE THERAPY REFERENCE: * Patients > 75 years receive moderate or high dose statin therapy. * Patients 75 years or YOUNGER should receive HIGH intensity statin dose unless contraindicated. You will be required to document reason for non-treatment if statin daily dose does not meet guidelines. HIGH DOSE STATIN THERAPY DAILY Atorvastatin > than or = to 40 mg Rosuvastatin > than or = to 20 mg Amlodipine + Atorvastatin > than or = to 2.5/40 mg Ezetimibe + Simvastatin 10/80 mg Simvastatin 80mg Discharge Plan Admission Admit Date/Time: 01/01/24 16:09 Primary Reason for Your Visit: Worsening shortness of breath Attending Provider: Alexander Barber Primary Care Provider: Kyle Aguila Consulting Providers: Vidal Li Instructions Additional Instructions / Restrictions: Please take 2 more days of prednisone to complete a 5-day course of steroids total. Continue all other home medications as normal. Discharge Orders/Prescriptions Prescriptions: New prednisone 20 mg tablet 40 mg PO DAILY 2 Days Qty: 4 0RF Continued atorvastatin 40 mg tablet 40 mg PO QHS aspirin [Adult Low Dose Aspirin] 81 mg tablet,delayed release (DR/EC) 81 mg PO QDAY famotidine 20 mg tablet 20 mg PO DAILY gabapentin 400 mg capsule 400 mg PO QHS cholecalciferol (vitamin D3) 125 mcg (5,000 unit) capsule 125 mcg PO DAILY calcium carbonate [Tums Ultra] 400 mg calcium (1,000 mg) tablet,chewable 800 mg PO TID PRN (Reason: Acid Reflux) potassium chloride 20 mEq tablet extended release 40 meq PO DAILY citalopram [Celexa] 20 mg tablet 20 mg PO DAILY furosemide 40 mg Tablet 40 mg PO DAILY Qty: 0 0RF spironolactone 25 mg Tablet 12.5 mg PO DAILY Qty: 0 0RF propranolol 80 mg tablet 80 mg PO BID polyvinyl alcohol [Artificial Tears (polyvin alc)] 1.4 % drops 1 drp EACH EYE BID insulin glargine-yfgn 100 unit/mL (3 mL) Insulin Pen 44 unit subcut DAILY Rx Instructions: NOON acetaminophen 325 mg tablet 650 mg PO Q8H PRN PRN (Reason: fever or pain) Referrals / Follow Up: Kyle Aguila MD [Primary Care Provider] - Disposition Disposition (needs filled in before D/C Order can be placed): Home, Self Care Charges/Coding Visit Charges Inpatient E&M: 39842 Disch Hosp >30min
--- NOTE | 2024-01-04 11:42 | CASEMGMT ---
SW met with patient. Introduced self and role at [facility]. Patient confirmed his plan is to return to [facility] [place]Note 2]. Patient denied need for home health at discharge. Patient said he just finished therapy a couple of weeks ago. Patient will need transportation back to [facility]. Plan: d/c back to [facility]. Physicians will transport patient back via wheelchair van. Marnie SUÁREZ
--- NOTE | 2024-01-04 11:42 | CASEMGMT ---
Discharge Planning [facility] updated via phone that patient will likely return today. Nina Hernandez DC Planning Asst.
[2024-01-04] MEDS: Insulin Glargine-YFGN 100 UNIT/ML Pen 30 UNIT SC (12:27)
[2024-01-04 12:32] LABS: Bedside Glucose 489 mg/dL (74-106)
[2024-01-04 13:03] VITALS: PULSE 79; RESP 16
--- NOTE | 2024-01-04 13:50 | NURSING ---
Patient blood sugar 489, MD aware, orders followed per MD. STAT glucose chem draw ordered per protocol, patient refused.
--- NOTE | 2024-01-04 13:58 | PHA.DC.MR.R ---
Pharmacy ID Med Reconciliation Pharmacy Service has performed discharge medication reconciliation for this patient. The patient's discharge medication list was reviewed for discrepancies and discrepancies were resolved. Medications at Discharge Home Medications aspirin 81 mg tablet,delayed release (Adult Low Dose Aspirin) 81 mg PO QDAY preventative 08/19/17 atorvastatin 40 mg tablet 40 mg PO QHS cholesterol 08/19/17 calcium carbonate (Tums Ultra) 800 mg PO TID PRN Acid Reflux 11/29/20 cholecalciferol (vitamin D3) 125 mcg (5,000 unit) capsule 125 mcg PO DAILY vitamin 11/29/20 famotidine 20 mg tablet 20 mg PO DAILY stomach 11/29/20 gabapentin 400 mg capsule 400 mg PO QHS neuropathy 11/29/20 citalopram 20 mg tablet (Celexa) 20 mg PO DAILY anxiety 11/01/23 potassium chloride 20 mEq tablet,extended release 40 meq PO DAILY potassium 11/01/23 furosemide 40 mg tablet 40 mg PO DAILY #0 tabs 11/19/23 spironolactone 25 mg tablet 12.5 mg (1/2 x 25 mg) PO DAILY #0 tabs 11/19/23 insulin glargine-yfgn 100 unit/mL (3 mL) subcutaneous pen 44 unit subcut DAILY Diabetes 01/01/24 polyvinyl alcohol 1.4 % eye drops (Artificial Tears (polyvinyl alcohol)) 1 drp EACH EYE BID 01/01/24 propranolol 80 mg tablet 80 mg PO BID 01/01/24 acetaminophen 325 mg tablet 650 mg PO Q8H PRN PRN fever or pain 01/02/24 prednisone 20 mg tablet 40 mg (2 x 20 mg) PO BREAKFAST 2 days #4 tabs 01/04/24
[2024-01-04 14:10] VITALS: BP 152/69; PULSE 77; RESP 18; TEMP 36.7; O2SAT 94
--- NOTE | 2024-01-04 14:26 | CASEMGMT ---
Social Work- SILVA called to set up transportation with [facility]. SILVA faxed discharge instructions to [facility] and followed up with a phone call to his AL nurse to advise of discharge and scheduled time of transport. SILVA notified bedside nurse and pt of discharge time. No additional needs indicated at this time. SINDY Stallings
--- NOTE | 2024-01-04 14:33 | CASEMGMT ---
Social Work- Pt uses [facility]. SINDY Stallings
--- NOTE | 2024-01-04 14:39 | NURSING ---
Called report to RN at [facility]
== END 2024-01-04 15:15 | disposition home or self-care (01) | DRG 291 ==
LOC: ED 15:00 → PCU 16:33
PROVIDERS: Physician Assistant; Admitting Provider Internal Medicine; Emergency Provider Student in an Organized Health Care Education/Training Program; PCP Family Medicine; Visit Provider Hospitalist
DX: I11.0 Hypertensive heart disease with heart failure (principal); I50.33 Acute on chronic diastolic (congestive) heart failure; J44.1 Chronic obstructive pulmonary disease with (acute) exacerbation; I27.21 Secondary pulmonary arterial hypertension; E11.3213 Type 2 diabetes mellitus with mild nonproliferative diabetic retinopathy with macular edema, bilateral; E11.40 Type 2 diabetes mellitus with diabetic neuropathy, unspecified; D50.9 Iron deficiency anemia, unspecified; E11.65 Type 2 diabetes mellitus with hyperglycemia; Z79.4 Long term (current) use of insulin; G20.C Parkinsonism, unspecified; F32.A Depression, unspecified; E78.5 Hyperlipidemia, unspecified; I25.10 Atherosclerotic heart disease of native coronary artery without angina pectoris; M54.50 Low back pain, unspecified; K21.9 Gastro-esophageal reflux disease without esophagitis; I25.5 Ischemic cardiomyopathy; F41.9 Anxiety disorder, unspecified; J06.9 Acute upper respiratory infection, unspecified; B97.89 Other viral agents as the cause of diseases classified elsewhere; G89.29 Other chronic pain; R53.81 Other malaise; Z66 Do not resuscitate; Z79.82 Long term (current) use of aspirin; Z79.899 Other long term (current) drug therapy; Z87.891 Personal history of nicotine dependence
CPT/HCPCS: 36415; 71045; 71275; 80048; 80061; 82607; 82728; 82746; 82962; 83036; 83540; 83550; 83735; 83880; 84443; 84484; 85025; 85027; 85379; 87070; 87205; 87631; 87633; 93005; 94640; 94668; 97162; 97165; 97530; 99285; J7040; Q9967; A4216; J1940

== ENCOUNTER → 2024-01-11 | Outpatient (CLI) | payer MEDICARE, MEDICAID, SELFPAY ==
[2024-01-11 10:20] LABS: Anion Gap 3 (5-15); BUN 14 mg/dL (7-18); BUN/Creat Ratio 13.9 RATIO (10-20); Calcium,Total 9.2 mg/dL (8.5-10.1); Chloride 99 mmol/L (98-107); Creatinine, Serum 1.01 mg/dL (0.70-1.30); EST Glomerular Filtration Rate 76 mL/min (>60); Est Glom Filt Rate - Afr Amer 92 mL/min (>60); Glucose 167 mg/dL (74-106); Potassium 3.6 mmol/L (3.5-5.1); Sodium Level 138 mmol/L (136-145)
== END | disposition home or self-care (01) ==
LOC: MFPLAB 08:58
PROVIDERS: PCP Family Medicine; Visit Provider Family Medicine
DX: E87.6 Hypokalemia (principal)
CPT/HCPCS: 36415; 80048